=== PATIENT | female | born 1945 | race Caucasian/White ===

== ENCOUNTER → 2016-12-22 17:17 | Outpatient (CLI) | payer MEDICARE, MEDICAID ==
[2012-05-21 11:06] VITALS: BMI 35.1
== END | disposition home or self-care (01) ==
LOC: D.MAMMO 10:15
DX: Z12.31 Encounter for screening mammogram for malignant neoplasm of breast (principal)

== ENCOUNTER 2016-12-26 14:11 | Emergency (ER) | payer MEDICARE, MEDICAID ==
[2012-05-21 11:06] VITALS: BMI 35.1
== END 2016-12-26 19:22 | disposition home or self-care (01) ==
LOC: D.ER 14:11
DX: S00.83XA Contusion of other part of head, initial encounter (principal); S60.212A Contusion of left wrist, initial encounter; S60.222A Contusion of left hand, initial encounter; V43.52XA Car driver injured in collision with other type car in traffic accident, initial encounter; Y93.89 Activity, other specified; Y92.410 Unspecified street and highway as the place of occurrence of the external cause; F17.200 Nicotine dependence, unspecified, uncomplicated

== ENCOUNTER → 2017-06-08 12:59 | Outpatient (CLI) | payer MEDICARE, MEDICAID ==
[2012-05-21 11:06] VITALS: BMI 35.1
== END | disposition home or self-care (01) ==
LOC: D.US 12:59
DX: R60.0 Localized edema (principal)

== ENCOUNTER 2017-09-03 11:47 | Emergency (ER) | payer MEDICARE, MEDICAID ==
[2012-05-21 11:06] VITALS: BMI 35.1
[2017-09-03 12:24] LABS: BASOPHILS 0.2 % (0-2); EOSINOPHILS 1.3 % (0-7); HEMATOCRIT 41.3 % (36.0-48.0); HEMOGLOBIN 13.6 g/dL (12-16); IMMATURE GRANULOCYTES 0.2 % (0-5); LYMPHOCYTES 11.1 % (15-50); MCH 31.4 pg (26.0-34.0); MCHC 32.9 g/dL (31.0-37.0); MCV 95.4 fL (80.0-100.0); MEAN PLATELET VOLUME 9.7 fL (7.4-10.4); NEUTROPHILS 77.2 % (40-80); PLATELET COUNT 134 10x3/uL (130-400); RBC 4.33 10x6/uL (4.00-5.40); WBC 4.5 10x3/uL (4.8-10.8)
[2017-09-03 12:41] LABS: APTT 29.1 SECONDS (22.8-39.4); INR 1.06 (0.85-1.17); PROTIME 13.6 SECONDS (11.6-15.0)
== END 2017-09-03 16:17 | disposition home or self-care (01) ==
LOC: D.ER 11:47
PROVIDERS: Emergency Medicine
DX: J18.9 Pneumonia, unspecified organism (principal); J44.9 Chronic obstructive pulmonary disease, unspecified; F17.200 Nicotine dependence, unspecified, uncomplicated

== ENCOUNTER 2017-09-25 16:03 | Emergency (ER) | payer MEDICARE, MEDICAID ==
[2012-05-21 11:06] VITALS: BMI 35.1
[2017-12-13 14:54] VITALS: BMI 33.6
== END 2017-09-25 17:08 | disposition home or self-care (01) ==
LOC: D.ER 16:03
DX: M54.2 Cervicalgia (principal); M25.512 Pain in left shoulder; M62.838 Other muscle spasm; J44.9 Chronic obstructive pulmonary disease, unspecified; F17.200 Nicotine dependence, unspecified, uncomplicated

== ENCOUNTER 2017-11-06 14:46 | Emergency (ER) | payer MEDICARE, MEDICAID ==
[2012-05-21 11:06] VITALS: BMI 35.1
[2017-11-06 15:38] LABS: BASOPHILS 0.1 % (0-2); EOSINOPHILS 0.3 % (0-7); IMMATURE GRANULOCYTES 0.3 % (0-5); LYMPHOCYTES 10.6 % (15-50); MCH 32.9 pg (26.0-34.0); MCHC 34.1 g/dL (31.0-37.0); MCV 96.5 fL (80.0-100.0); MEAN PLATELET VOLUME 9.5 fL (7.4-10.4); MONOCYTES 7.3 % (2-11); NEUTROPHILS 81.4 % (40-80); PLATELET COUNT 136 10x3/uL (130-400); RBC 4.56 10x6/uL (4.00-5.40); RDW 14.3 % (11.5-14.5); WBC 7.1 10x3/uL (4.8-10.8)
[2017-11-06 15:49] LABS: INR 1.05 (0.85-1.17); PROTIME 13.3 SECONDS (11.6-15.0)
[2017-11-06 15:57] LABS: ALBUMIN 4.1 g/dL (3.4-5.0); ALKALINE PHOSPHATASE 108 U/L (46-116); ALT (SGPT) 22 U/L (10-68); BILIRUBIN - TOTAL 0.85 mg/dL (0.2-1.3); CALC OSMOLALITY 267 mosm/kg (275-300); CALCIUM 9.6 mg/dL (8.5-10.1); CARBON DIOXIDE 26.7 mmol/L (21.0-32.0); CHLORIDE - SERUM 96 mmol/L (98-107); GLUCOSE 138 mg/dL (74-106); POTASSIUM - SERUM 3.9 mmol/L (3.5-5.1); PROTEIN - SERUM 7.3 g/dL (6.4-8.2); SODIUM 133 mmol/L (136-145); UREA NITROGEN 13 mg/dL (7-18); eGFR NON AFRICAN AMERICAN 58 mL/min (90-120)
[2017-11-06 16:01] LABS: CREATINE KINASE 135 UL (21-215); MAGNESIUM - SERUM 1.4 mg/dL (1.8-2.4)
[2017-11-06 16:06] LABS: TROPONIN-I < 0.017 ng/mL (0.000-0.060)
[2017-11-06 16:29] LABS: APPEARANCE CLEAR (CLEAR); BILIRUBIN NEGATIVE (NEGATIVE); COLOR YELLOW (YELLOW); GLUCOSE NEGATIVE (NEGATIVE); KETONE LARGE mg/dL (NEGATIVE); NITRITE NEGATIVE (NEGATIVE); PROTEIN 1+ mg/dL (NEGATIVE); UROBILINOGEN NORMAL (NORMAL)
[2017-11-06 16:30] LABS: BACTERIA MODERATE /hpf (NONE SEEN); EPITHELIAL CELLS 0-5 /hpf (0-5); RED CELLS - URINE 0-5 /hpf (0-5); UDS - AMPHET NEGATIVE QUAL (NEGATIVE); UDS - BARB NEGATIVE QUAL (NEGATIVE); UDS - BENZO NEGATIVE QUAL (NEGATIVE); UDS - COCAINE NEGATIVE QUAL (NEGATIVE); UDS - OPIATE POSITIVE QUAL (NEGATIVE); UDS - PCP NEGATIVE QUAL (NEGATIVE); UDS - THC NEGATIVE QUAL (NEGATIVE); WHITE CELLS - URINE 0-5 /hpf (0-5)
== END 2017-11-06 19:40 | disposition short-term general hospital (02) ==
LOC: D.ER 14:46
PROVIDERS: Emergency Medicine; Nurse Practitioner Family
DX: R53.1 Weakness (principal); J44.9 Chronic obstructive pulmonary disease, unspecified; I10 Essential (primary) hypertension; K21.9 Gastro-esophageal reflux disease without esophagitis

== ENCOUNTER 2017-11-16 08:36 | Inpatient (IN) | payer MEDICARE, MEDICAID ==
[~2017-11-16] VITALS: Ht 160 cm; Wt 92.5 kg
[2017-11-16 09:13] LABS: BASOPHILS 0.2 % (0-2); EOSINOPHILS 0.2 % (0-7); HEMOGLOBIN 14.1 g/dL (12-16); IMMATURE GRANULOCYTES 0.3 % (0-5); LYMPHOCYTES 7.6 % (15-50); MCH 33.3 pg (26.0-34.0); MCHC 33.6 g/dL (31.0-37.0); MCV 99.1 fL (80.0-100.0); MEAN PLATELET VOLUME 9.7 fL (7.4-10.4); MONOCYTES 12.5 % (2-11); NEUTROPHILS 79.2 % (40-80); RBC 4.24 10x6/uL (4.00-5.40); RDW 14.5 % (11.5-14.5); WBC 9.2 10x3/uL (4.8-10.8)
[2017-11-16 09:25] LABS: PLATELET COUNT 167 10x3/uL (130-400)
[2017-11-16 09:28] LABS: ALBUMIN 3.6 g/dL (3.4-5.0); ANION GAP 15.6 mmol/L (8-16); BILIRUBIN - TOTAL 0.7 mg/dL (0.2-1.3); CALCIUM 9.3 mg/dL (8.5-10.1); CREATININE - SERUM 1.5 mg/dL (0.6-1.3); POTASSIUM - SERUM 4.6 mmol/L (3.5-5.1); PROTEIN - SERUM 7.4 g/dL (6.4-8.2)
[2017-11-16 10:12] LABS: APPEARANCE CLEAR (CLEAR); BILIRUBIN NEGATIVE (NEGATIVE); COLOR YELLOW (YELLOW); GLUCOSE NEGATIVE (NEGATIVE); HYALINE CAST OCC /lpf (NONE SEEN); KETONE NEGATIVE (NEGATIVE); MUCUS <1+ /lpf (NONE SEEN); NITRITE NEGATIVE (NEGATIVE); PROTEIN TRACE mg/dL (NEGATIVE); SPECIFIC GRAVITY 1.015 (1.005-1.020); UROBILINOGEN NORMAL (NORMAL)
[2017-11-16 10:14] LABS: BACTERIA FEW /hpf (NONE SEEN); EPITHELIAL CELLS OCC /hpf (0-5); RED CELLS - URINE RARE /hpf (0-5)
[2017-11-16 15:07] VITALS: BP 116/50; BMI 36.2
[2017-11-16] MEDS ORDERED: BREO ELLIPTA 21 EACH (15:35)
[2017-11-16] MEDS ORDERED: INCRUSE ELLI62.5 MCG INH (15:36)
[2017-11-16] MEDS ORDERED: KEPPRA750 MG PO (15:37)
[2017-11-16] MEDS ORDERED: PROAIR HFA8.5 GM INH (15:37)
[2017-11-16] MEDS ORDERED: NEURONTIN800 MG PO (15:38)
[2017-11-16] MEDS ORDERED: POTASSIUM99 M1 PO (15:39)
[2017-11-16] MEDS ORDERED: ELAVIL25 MG PO (15:41)
[2017-11-16] MEDS ORDERED: BUPROPION XL150 MG PO (15:41)
[2017-11-16] MEDS ORDERED: PYRIDOXINE HCL100 MG PO (15:42)
[2017-11-16] MEDS ORDERED: PRAVASTATIN SOD10 MG PO (15:43)
[2017-11-16] MEDS ORDERED: FUROSEMIDE40 MG PO (15:44)
[2017-11-16] MEDS ORDERED: ROBAXIN500 MG PO (15:44)
[2017-11-16] MEDS ORDERED: MAG-OX 400 MG400 MG PO (15:45)
[2017-11-16] MEDS ORDERED: VOLTAREN75 MG PO (15:45)
[2017-11-16] MEDS ORDERED: SYNTHROID25 MCG PO (15:46)
[2017-11-16] MEDS ORDERED: REQUIP5 MG PO (15:46)
[2017-11-16] MEDS ORDERED: CELEXA40 MG PO (15:46)
[2017-11-16] MEDS ORDERED: VITAMIN D31000 UNIT PO (15:47)
[2017-11-16] MEDS ORDERED: ZANAFLEX4 MG PO (15:47)
[2017-11-16] MEDS ORDERED: HYDROCHLOROTHIA25 MG PO (15:48)
[2017-11-16] MEDS ORDERED: OMEPRAZOLE20 M1 PO (15:48)
[2017-11-16 20:00] VITALS: BP 112/64
[2017-11-17] VITALS: BP 133/59
[2017-11-17 04:00] VITALS: BP 126/55
[2017-11-17 08:49] VITALS: BP 94/40
[2017-11-17 12:36] VITALS: BP 144/48
[2017-11-17 13:40] VITALS: Ht 160 cm; Wt 92.5 kg
[2017-11-17] MEDS ORDERED: FLAGYL500 MG PO (16:07)
[2017-11-17 16:36] VITALS: BP 139/59
[2017-11-20 03:09] LABS: OVA + PARASITE EXAM Final report (())
== END 2017-11-17 19:32 | disposition home or self-care (01) | DRG 872 ==
LOC: D.ER 08:36 → D.MS 12:53
PROVIDERS: Emergency Medicine
DX: A41.9 Sepsis, unspecified organism (principal); A04.72 Enterocolitis due to Clostridium difficile, not specified as recurrent; N17.9 Acute kidney failure, unspecified; I10 Essential (primary) hypertension; E86.0 Dehydration; J44.9 Chronic obstructive pulmonary disease, unspecified; Z72.0 Tobacco use

== ENCOUNTER 2017-12-12 18:40 | Inpatient (IN) | payer MEDICARE, MEDICAID ==
[~2017-12-12] VITALS: Ht 160 cm; Wt 86.2 kg
--- NOTE | ~2017-12-12 | EC ---
PATIENT:ABHINAV MONSIVAIS DATE OF SERVICE: 12/12/17 SEX: F MEDICAL RECORD: [id number] DATE OF : [birth year] LOCATION:[facility] AGE OF PATIENT: 72 ADMISSION DATE: 12/12/17 REFERRING PHYSICIAN: INTERPRETING PHYSICIAN: VANESSA LARA MD ECHOCARDIOGRAM REPORT ECHO CHARGES 4 ECHO COMPLETE CLINICAL DIAGNOSIS: CHF ECHOCARDIOGRAPHIC MEASUREMENTS (adult normal given) AC root (d.<3.7cm) 3.0 cm LV Septum d (<1.2 cm> 1.5 cm Valve Excursion 1.4 cm LV Septum (systole) 1.9 cm Left Atria (s.<4.0cm> 3.6 cm LVPW d(<1.2cm) 1.5 cm RV (d.<2.3cm) 3.9 cm LVPW (sytole) 1.9 cm LV diastole(<5.6CM) 4.6 cm MV E-F(>70mm/sec) cm LV systole 3.4 cm LVOT Diameter 1.7 cm MV exc.(>10mm) 1.5 cm Est.ejection fraction (50-75%) % Pericardial Effusion N DOPPLER: LVIT cm/sec A 118 cm/sec E 98.0 cm/sec LA cm/sec RVSP 26 mmHg LVOT 109 cm/sec AOP1/2T m/s Asc. Ao 154 cm/sec RVOT 101 cm/sec RA cm/sec PA 138 cm/sec AV Gradient Peak 9.52 mmHg AV Mean 4.76 mmHg AV Area 1.7 cm MV Gradient Peak 6.02 mmHg MV Mean 2.15 mmHg MV Area cm COMMENTS: Field Appraiser: Chapin TRAORE Advertising Project Manager: 2 Dr. Ashley TAPE# PACS DATE OF SERVICE: 12/13/2017 FINDINGS: 1. Left ventricular chamber size is within normal limits. Left ventricular systolic function is normal. Overall ejection fraction estimated at 65%. 2. Left atrium is within normal limits at 3.6 cm. Right atrium and right ventricle chamber sizes are mildly dilated. 3. Valvular structures have normal structure and motion. 4. Doppler interrogation reveals trace mitral regurgitation. No other valvular insufficiency or stenosis. ECHOCARDIOGRAM REPORT [id number] ABHINAV MONISVAIS 5. No evidence of pericardial effusion or left ventricular thrombus. TRANSINT:[id number] Voice Confirmation ID: [id number] DOCUMENT ID: [id number] VANESSA LARA MD CC: [id number] DICTATION DATE: 12/14/17923 OPTIMIZATION CONSULTANT: 12/14/17 1110 ADM IN [place] [id number] [place] [id number]
[~2017-12-12 18:40] MED LIST: BREO ELLIPTA 21 EACH; BUPROPION XL150 MG PO; CELEXA40 MG PO; ELAVIL25 MG PO; FLAGYL500 MG PO; FUROSEMIDE40 MG PO; HYDROCHLOROTHIA25 MG PO; INCRUSE ELLI62.5 MCG INH; KEPPRA750 MG PO; MAG-OX 400 MG400 MG PO; NEURONTIN800 MG PO; OMEPRAZOLE20 M1 PO; POTASSIUM99 M1 PO; PRAVASTATIN SOD10 MG PO; PROAIR HFA8.5 GM INH; PYRIDOXINE HCL100 MG PO; REQUIP5 MG PO; ROBAXIN500 MG PO; SYNTHROID25 MCG PO; VITAMIN D31000 UNIT PO; VOLTAREN75 MG PO; ZANAFLEX4 MG PO
[2017-12-12 20:45] LABS: BASOPHILS 0.2 % (0-2); EOSINOPHILS 1.3 % (0-7); HEMATOCRIT 37.1 % (36.0-48.0); IMMATURE GRANULOCYTES 0.4 % (0-5); LYMPHOCYTES 9.9 % (15-50); MCH 32.6 pg (26.0-34.0); MCHC 32.3 g/dL (31.0-37.0); MCV 100.8 fL (80.0-100.0); MEAN PLATELET VOLUME 10.4 fL (7.4-10.4); MONOCYTES 5.5 % (2-11); NEUTROPHILS 82.7 % (40-80); PLATELET COUNT 166 10x3/uL (130-400); RBC 3.68 10x6/uL (4.00-5.40); RDW 14.6 % (11.5-14.5); WBC 11.9 10x3/uL (4.8-10.8)
[2017-12-12 21:03] LABS: ANION GAP 10.2 mmol/L (8-16); BILIRUBIN - TOTAL 0.86 mg/dL (0.2-1.3); CALCIUM 8.4 mg/dL (8.5-10.1); CARBON DIOXIDE 32.7 mmol/L (21.0-32.0); CREATININE - SERUM 1.4 mg/dL (0.6-1.3); POTASSIUM - SERUM 4.9 mmol/L (3.5-5.1); PROTEIN - SERUM 6.3 g/dL (6.4-8.2)
[2017-12-13 00:32] LABS: APPEARANCE CLEAR (CLEAR); COLOR YELLOW (YELLOW)
[2017-12-13 00:33] LABS: BILIRUBIN NEGATIVE (NEGATIVE); EPITHELIAL CELLS 0-5 /hpf (0-5); GLUCOSE NEGATIVE (NEGATIVE); KETONE NEGATIVE (NEGATIVE); NITRITE NEGATIVE (NEGATIVE); PROTEIN NEGATIVE (NEGATIVE); RED CELLS - URINE NONE SEEN /hpf (0-5); UROBILINOGEN NORMAL (NORMAL); WHITE CELLS - URINE 0-5 /hpf (0-5)
[2017-12-13 00:34] LABS: BACTERIA FEW /hpf (NONE SEEN); YEAST <1+ /hpf (NONE SEEN)
[2017-12-13 03:27] VITALS: BP 119/42; BMI 33.7
[2017-12-13 05:16] LABS: BASOPHILS 0.1 % (0-2); EOSINOPHILS 0.1 % (0-7); HEMATOCRIT 36.6 % (36.0-48.0); HEMOGLOBIN 11.5 g/dL (12-16); IMMATURE GRANULOCYTES 0.4 % (0-5); LYMPHOCYTES 5.7 % (15-50); MCH 31.5 pg (26.0-34.0); MCHC 31.4 g/dL (31.0-37.0); MCV 100.3 fL (80.0-100.0); MEAN PLATELET VOLUME 9.8 fL (7.4-10.4); MONOCYTES 0.7 % (2-11); RBC 3.65 10x6/uL (4.00-5.40); RDW 14.6 % (11.5-14.5)
[2017-12-13 05:20] LABS: PLATELET COUNT 124 10x3/uL (130-400); WBC 8.1 10x3/uL (4.8-10.8)
[2017-12-13 05:32] LABS: CALCIUM 8.1 mg/dL (8.5-10.1); CARBON DIOXIDE 32.7 mmol/L (21.0-32.0); CREATININE - SERUM 1.2 mg/dL (0.6-1.3); POTASSIUM - SERUM 4.7 mmol/L (3.5-5.1)
[2017-12-13 07:59] VITALS: BP 156/66
[2017-12-13 12:31] VITALS: BP 158/63
[2017-12-13 14:54] VITALS: Ht 160 cm; Wt 86.2 kg
[2017-12-13 16:19] VITALS: BP 159/75
[2017-12-13 19:13] LABS: % SATURATION 6 % (15-55); IRON 17 ug/dl (35-150); TOTAL IRON BIND CAPACITY 255 ug/dl (260-445); UNSAT IRON BIND CAPACITY 238 ug/dl (150-375)
[2017-12-13 21:39] VITALS: BP 146/114
[2017-12-13 22:00] VITALS: BP 158/69
[2017-12-14 00:15] VITALS: BP 158/69
[2017-12-14 04:00] VITALS: BP 132/81
[2017-12-14 06:03] LABS: BASOPHILS 0 % (0-2); EOSINOPHILS 0 % (0-7); HEMOGLOBIN 11.3 g/dL (12-16); IMMATURE GRANULOCYTES 0.1 % (0-5); LYMPHOCYTES 10.6 % (15-50); MCHC 32.3 g/dL (31.0-37.0); MCV 99.2 fL (80.0-100.0); MEAN PLATELET VOLUME 9.9 fL (7.4-10.4); NEUTROPHILS 85.3 % (40-80); PLATELET COUNT 145 10x3/uL (130-400); RBC 3.53 10x6/uL (4.00-5.40); RDW 14.2 % (11.5-14.5); WBC 7.2 10x3/uL (4.8-10.8)
[2017-12-14 06:09] LABS: ANION GAP 9.6 mmol/L (8-16); CALCIUM 8.8 mg/dL (8.5-10.1); CARBON DIOXIDE 34.8 mmol/L (21.0-32.0)
[2017-12-14 06:10] LABS: POTASSIUM - SERUM 3.4 mmol/L (3.5-5.1)
[2017-12-14 06:15] LABS: HEMOGLOBIN A1C 5.3 % (4.8-6.0)
[2017-12-14 08:54] VITALS: BP 159/62
[2017-12-14 11:42] VITALS: BP 127/40
[2017-12-14 16:30] VITALS: BP 138/60
[2017-12-14 23:18] VITALS: BP 144/68
[2017-12-15] VITALS (7 sets, daily range): BP systolic 120–155; BP diastolic 51–67
[2017-12-15 08:16] LABS: FOLATE (FOLIC ACID) - SERUM 6.5 ng/mL (>3.0)
[2017-12-16 01:15] VITALS: BP 134/63
[2017-12-16 05:05] VITALS: BP 145/56
[2017-12-16 05:30] LABS: BASOPHILS 0.2 % (0-2); EOSINOPHILS 2.3 % (0-7); HEMATOCRIT 36.4 % (36.0-48.0); HEMOGLOBIN 11.8 g/dL (12-16); IMMATURE GRANULOCYTES 0.2 % (0-5); LYMPHOCYTES 25.4 % (15-50); MCH 32.2 pg (26.0-34.0); MCHC 32.4 g/dL (31.0-37.0); MCV 99.5 fL (80.0-100.0); MEAN PLATELET VOLUME 9.6 fL (7.4-10.4); MONOCYTES 7.5 % (2-11); NEUTROPHILS 64.4 % (40-80); PLATELET COUNT 142 10x3/uL (130-400); RBC 3.66 10x6/uL (4.00-5.40); RDW 14.3 % (11.5-14.5)
[2017-12-16 05:40] LABS: WBC 5.3 10x3/uL (4.8-10.8)
[2017-12-16 05:53] LABS: ANION GAP 12.5 mmol/L (8-16); CALCIUM 8.2 mg/dL (8.5-10.1); CARBON DIOXIDE 30.5 mmol/L (21.0-32.0); CREATININE - SERUM 1.1 mg/dL (0.6-1.3)
[2017-12-16 07:57] VITALS: BP 150/56
[2017-12-16 16:17] VITALS: BP 133/85
[2017-12-16 22:26] VITALS: BP 134/54
[2017-12-17 01:39] VITALS: BP 148/61
[2017-12-17 05:30] VITALS: BP 131/56
[2017-12-17 08:37] VITALS: BP 154/53
[2017-12-17 11:47] VITALS: BP 129/45
[2017-12-17 12:47] LABS: BASOPHILS 0.1 % (0-2); HEMATOCRIT 39.3 % (36.0-48.0); HEMOGLOBIN 12.6 g/dL (12-16); IMMATURE GRANULOCYTES 0.1 % (0-5); LYMPHOCYTES 17.3 % (15-50); MCHC 32.1 g/dL (31.0-37.0); MCV 99.7 fL (80.0-100.0); MEAN PLATELET VOLUME 9.3 fL (7.4-10.4); MONOCYTES 8.3 % (2-11); NEUTROPHILS 71.2 % (40-80); PLATELET COUNT 161 10x3/uL (130-400); RBC 3.94 10x6/uL (4.00-5.40); RDW 14.2 % (11.5-14.5)
[2017-12-17 12:49] LABS: WBC 8.5 10x3/uL (4.8-10.8)
[2017-12-17 13:03] LABS: ANION GAP 7.7 mmol/L (8-16); BILIRUBIN - TOTAL 0.4 mg/dL (0.2-1.3); CALCIUM 8.3 mg/dL (8.5-10.1); CARBON DIOXIDE 32.8 mmol/L (21.0-32.0); PROTEIN - SERUM 6.1 g/dL (6.4-8.2)
[2017-12-17 13:13] LABS: POTASSIUM - SERUM 3.5 mmol/L (3.5-5.1)
[2017-12-17] MEDS ORDERED: NICODERM C1 PATCH .1 TRANSDERM (13:33)
[2017-12-17] MEDS ORDERED: FLORAJEN3 CAPS460 MG PO (13:34)
[2017-12-17] MEDS ORDERED: ZITHROMAX250 MG PO (13:35)
[2017-12-17] MEDS ORDERED: FLAGYL500 MG PO (13:35)
== END 2017-12-17 15:03 | disposition home health service (06) | DRG 190 ==
LOC: D.ER 18:40 → D.MS 23:21
PROVIDERS: Family Medicine; Internal Medicine Nephrology; Physician Assistant
DX: J44.0 Chronic obstructive pulmonary disease with (acute) lower respiratory infection (principal); J18.1 Lobar pneumonia, unspecified organism; N17.9 Acute kidney failure, unspecified; F17.203 Nicotine dependence unspecified, with withdrawal; J44.1 Chronic obstructive pulmonary disease with (acute) exacerbation; D50.9 Iron deficiency anemia, unspecified; I10 Essential (primary) hypertension; E78.5 Hyperlipidemia, unspecified; K21.9 Gastro-esophageal reflux disease without esophagitis; M47.9 Spondylosis, unspecified; S33.6XXA Sprain of sacroiliac joint, initial encounter; W18.30XA Fall on same level, unspecified, initial encounter

== ENCOUNTER → 2018-01-02 17:46 | Outpatient (CLI) | payer MEDICARE, MEDICAID ==
[2017-12-13 14:54] VITALS: BMI 33.6
[~2018-01-02 17:46] MED LIST changes: +FLORAJEN3 CAPS460 MG PO; +NICODERM C1 PATCH .1 TRANSDERM; +ZITHROMAX250 MG PO
== END | disposition home or self-care (01) ==
LOC: D.MAMMO 14:15
DX: Z12.31 Encounter for screening mammogram for malignant neoplasm of breast (principal)

== ENCOUNTER → 2018-02-04 09:48 | Outpatient (CLI) | payer MEDICARE, MEDICAID ==
[2017-12-13 14:54] VITALS: BMI 33.6
== END | disposition home or self-care (01) ==
LOC: D.CT 09:48
DX: R91.1 Solitary pulmonary nodule (principal)

== ENCOUNTER 2018-04-05 15:16 | Emergency (ER) | payer MEDICARE, MEDICAID ==
[2017-12-13 14:54] VITALS: BMI 33.6
[2018-04-05 16:24] LABS: BASOPHILS 0 % (0-2); EOSINOPHILS 0.2 % (0-7); HEMATOCRIT 38.8 % (36.0-48.0); HEMOGLOBIN 12.7 g/dL (12-16); IMMATURE GRANULOCYTES 0.2 % (0-5); LYMPHOCYTES 22.9 % (15-50); MCH 31.4 pg (26.0-34.0); MCHC 32.7 g/dL (31.0-37.0); MCV 95.8 fL (80.0-100.0); MEAN PLATELET VOLUME 10.9 fL (7.4-10.4); MONOCYTES 8.7 % (2-11); PLATELET COUNT 153 10x3/uL (130-400); RBC 4.05 10x6/uL (4.00-5.40); RDW 13.6 % (11.5-14.5); WBC 5.9 10x3/uL (4.8-10.8)
[2018-04-05 16:42] LABS: ALBUMIN 3.4 g/dL (3.4-5.0); ALKALINE PHOSPHATASE 73 U/L (46-116); ALT (SGPT) 21 U/L (10-68); BILIRUBIN - TOTAL 0.31 mg/dL (0.2-1.3); CALC OSMOLALITY 289 mosm/kg (275-300); CALCIUM 8.2 mg/dL (8.5-10.1); CARBON DIOXIDE 33.3 mmol/L (21.0-32.0); CHLORIDE - SERUM 100 mmol/L (98-107); CREATININE - SERUM 1.7 mg/dL (0.6-1.3); GLUCOSE 139 mg/dL (74-106); POTASSIUM - SERUM 3.9 mmol/L (3.5-5.1); PROTEIN - SERUM 6.5 g/dL (6.4-8.2); SODIUM 139 mmol/L (136-145); UREA NITROGEN 41 mg/dL (7-18); eGFR NON AFRICAN AMERICAN 31 mL/min (90-120)
[2018-04-05 16:50] LABS: PRO BNP 963 pg/mL (0-125)
[2018-04-05 16:51] LABS: TROPONIN-I < 0.017 ng/mL (0.000-0.060)
[2018-04-05 16:53] LABS: APTT 27.9 SECONDS (22.8-39.4); INR 1.12 (0.85-1.17)
[2018-04-05 17:30] LABS: APPEARANCE CLEAR (CLEAR); BILIRUBIN NEGATIVE (NEGATIVE); COLOR YELLOW (YELLOW); GLUCOSE NEGATIVE (NEGATIVE); KETONE NEGATIVE (NEGATIVE); NITRITE NEGATIVE (NEGATIVE); PROTEIN NEGATIVE (NEGATIVE); UROBILINOGEN NORMAL (NORMAL)
== END 2018-04-05 18:35 | disposition home or self-care (01) ==
LOC: D.ER 15:16
PROVIDERS: Family Medicine
DX: S16.1XXA Strain of muscle, fascia and tendon at neck level, initial encounter (principal); W01.0XXA Fall on same level from slipping, tripping and stumbling without subsequent striking against object, initial encounter; Y93.89 Activity, other specified; Y92.019 Unspecified place in single-family (private) house as the place of occurrence of the external cause; F17.200 Nicotine dependence, unspecified, uncomplicated; I10 Essential (primary) hypertension

== ENCOUNTER → 2018-06-25 16:22 | Outpatient (CLI) | payer MEDICARE, MEDICAID ==
[2017-12-13 14:54] VITALS: BMI 33.6
[~2018-06-25 16:22] MED LIST changes: +HYDROCODONE-APA1 TAB PO; +KENALOG 0.1 % 115 GM TOPICAL; +TRELEGY AER ELL; +ZESTRIL10 MG PO
== END | disposition home or self-care (01) ==
LOC: D.MRI 16:22
DX: M54.2 Cervicalgia (principal)

== ENCOUNTER 2018-07-19 17:10 | Inpatient (IN) | payer MEDICARE, MEDICAID ==
[~2018-07-19] VITALS: Ht 160 cm; Wt 92.7 kg
[~2018-07-19 17:10] MED LIST changes: -HYDROCODONE-APA1 TAB PO; -KENALOG 0.1 % 115 GM TOPICAL; -TRELEGY AER ELL; -ZESTRIL10 MG PO
[2018-07-19 18:54] LABS: RBC 3.94 10x6/uL (4.00-5.40); WBC 6.8 10x3/uL (4.8-10.8)
[2018-07-19 18:55] LABS: BASOPHILS 0.1 % (0-2); EOSINOPHILS 1 % (0-7); IMMATURE GRANULOCYTES 0.3 % (0-5); LYMPHOCYTES 20.9 % (15-50); MCH 30.5 pg (26.0-34.0); MCHC 32.4 g/dL (31.0-37.0); MCV 93.9 fL (80.0-100.0); MEAN PLATELET VOLUME 9.9 fL (7.4-10.4); MONOCYTES 5.6 % (2-11); NEUTROPHILS 72.1 % (40-80); PLATELET COUNT 151 10x3/uL (130-400); RDW 14.7 % (11.5-14.5)
[2018-07-19 19:14] LABS: AMYLASE - SERUM 28 U/L (25-115); CALC OSMOLALITY 284 mosm/kg (275-300); CALCIUM 7.6 mg/dL (8.5-10.1); CARBON DIOXIDE 26.4 mmol/L (21.0-32.0); CHLORIDE - SERUM 97 mmol/L (98-107); CREATININE - SERUM 4.6 mg/dL (0.6-1.3); GLUCOSE 135 mg/dL (74-106); LIPASE 72 U/L (73-393); SODIUM 134 mmol/L (136-145); UREA NITROGEN 54 mg/dL (7-18); eGFR NON AFRICAN AMERICAN 10 mL/min (90-120)
[2018-07-19 19:15] LABS: ALBUMIN 3.1 g/dL (3.4-5.0); ALKALINE PHOSPHATASE 84 U/L (46-116); ALT (SGPT) 21 U/L (10-68); BILIRUBIN - TOTAL 0.54 mg/dL (0.2-1.3); PROTEIN - SERUM 6.2 g/dL (6.4-8.2)
[2018-07-19 19:17] VITALS: BP 106/44
[2018-07-19 19:59] LABS: APPEARANCE CLEAR (CLEAR); BILIRUBIN NEGATIVE (NEGATIVE); COLOR DK YELLOW (YELLOW); GLUCOSE NEGATIVE (NEGATIVE); KETONE NEGATIVE (NEGATIVE); NITRITE NEGATIVE (NEGATIVE); PROTEIN NEGATIVE (NEGATIVE); SPECIFIC GRAVITY 1.025 (1.005-1.020); UROBILINOGEN NORMAL (NORMAL)
[2018-07-19 20:00] VITALS: BP 106/43
[2018-07-19 20:00] LABS: RED CELLS - URINE 0-5 /hpf (0-5); WHITE CELLS - URINE 0-5 /hpf (0-5)
[2018-07-19 20:01] LABS: BACTERIA MANY /hpf (NONE SEEN)
[2018-07-19] MEDS ORDERED: ZESTRIL10 MG PO (21:36)
[2018-07-19] MEDS ORDERED: TRELEGY AER ELL (21:40)
[2018-07-19] MEDS ORDERED: KENALOG 0.1 % 115 GM TOPICAL (21:45)
[2018-07-20 01:41] VITALS: BP 106/43; BMI 36.2
[2018-07-20 04:00] VITALS: BP 82/42
[2018-07-20 05:17] LABS: BASOPHILS 0.2 % (0-2); EOSINOPHILS 2.2 % (0-7); HEMATOCRIT 36.4 % (36.0-48.0); HEMOGLOBIN 11.6 g/dL (12-16); IMMATURE GRANULOCYTES 0.2 % (0-5); LYMPHOCYTES 31.2 % (15-50); MCH 30.3 pg (26.0-34.0); MCHC 31.9 g/dL (31.0-37.0); MEAN PLATELET VOLUME 9.7 fL (7.4-10.4); NEUTROPHILS 56.2 % (40-80); PLATELET COUNT 139 10x3/uL (130-400); RBC 3.83 10x6/uL (4.00-5.40); RDW 14.7 % (11.5-14.5); WBC 5.1 10x3/uL (4.8-10.8)
[2018-07-20 05:35] LABS: ANION GAP 11.2 mmol/L (8-16); CALCIUM 7.3 mg/dL (8.5-10.1); CARBON DIOXIDE 28.1 mmol/L (21.0-32.0); CREATININE - SERUM 3.7 mg/dL (0.6-1.3); POTASSIUM - SERUM 4.3 mmol/L (3.5-5.1)
[2018-07-20 08:20] VITALS: BP 99/37
[2018-07-20] MEDS ORDERED: HYDROCODONE-APA1 TAB PO (09:49)
[2018-07-20 10:33] LABS: ALBUMIN 2.7 g/dL (3.4-5.0); BILIRUBIN - DIRECT 0.12 mg/dL (0.00-0.30); BILIRUBIN - INDIRECT 0.31 mg/dL (0.00-1.00); BILIRUBIN - TOTAL 0.43 mg/dL (0.2-1.3); PROTEIN - SERUM 5.5 g/dL (6.4-8.2)
[2018-07-20 11:05] VITALS: Ht 160 cm; Wt 92.7 kg
[2018-07-20 12:09] VITALS: BP 88/42
[2018-07-20 15:56] VITALS: BP 101/68
[2018-07-20 20:26] VITALS: BP 90/40
[2018-07-21 00:58] VITALS: BP 100/40
[2018-07-21 06:38] LABS: BASOPHILS 0.3 % (0-2); EOSINOPHILS 4.3 % (0-7); HEMATOCRIT 34.7 % (36.0-48.0); HEMOGLOBIN 11.1 g/dL (12-16); IMMATURE GRANULOCYTES 0.3 % (0-5); LYMPHOCYTES 36.6 % (15-50); MCH 30.4 pg (26.0-34.0); MCV 95.1 fL (80.0-100.0); MEAN PLATELET VOLUME 10.2 fL (7.4-10.4); MONOCYTES 9.5 % (2-11); PLATELET COUNT 153 10x3/uL (130-400); RBC 3.65 10x6/uL (4.00-5.40); RDW 14.7 % (11.5-14.5)
[2018-07-21 06:51] VITALS: BP 126/40
[2018-07-21 07:06] LABS: ALBUMIN 2.6 g/dL (3.4-5.0); ANION GAP 12.1 mmol/L (8-16); BILIRUBIN - TOTAL 0.39 mg/dL (0.2-1.3); CALCIUM 7.7 mg/dL (8.5-10.1); CARBON DIOXIDE 26.5 mmol/L (21.0-32.0); POTASSIUM - SERUM 4.6 mmol/L (3.5-5.1); PROTEIN - SERUM 5.5 g/dL (6.4-8.2)
[2018-07-21 07:10] LABS: CREATININE - SERUM 2.1 mg/dL (0.6-1.3)
[2018-07-21 09:20] VITALS: BP 118/48
[2018-07-21 12:33] VITALS: BP 123/36
[2018-07-21 17:32] VITALS: BP 130/36
[2018-07-21 21:59] VITALS: BP 98/37
[2018-07-22 05:54] LABS: BASOPHILS 0.3 % (0-2); EOSINOPHILS 3.8 % (0-7); HEMATOCRIT 33.8 % (36.0-48.0); HEMOGLOBIN 10.6 g/dL (12-16); IMMATURE GRANULOCYTES 0.3 % (0-5); LYMPHOCYTES 36.7 % (15-50); MCHC 31.4 g/dL (31.0-37.0); MCV 95.8 fL (80.0-100.0); MONOCYTES 10.1 % (2-11); NEUTROPHILS 48.8 % (40-80); PLATELET COUNT 155 10x3/uL (130-400); RBC 3.53 10x6/uL (4.00-5.40); RDW 14.7 % (11.5-14.5); WBC 3.4 10x3/uL (4.8-10.8)
[2018-07-22 06:37] LABS: ALBUMIN 2.4 g/dL (3.4-5.0); ANION GAP 10.4 mmol/L (8-16); BILIRUBIN - TOTAL 0.31 mg/dL (0.2-1.3); CALCIUM 7.8 mg/dL (8.5-10.1); CARBON DIOXIDE 29.1 mmol/L (21.0-32.0); POTASSIUM - SERUM 4.5 mmol/L (3.5-5.1); PROTEIN - SERUM 5.3 g/dL (6.4-8.2)
[2018-07-22 06:40] LABS: CREATININE - SERUM 1.1 mg/dL (0.6-1.3)
[2018-07-22 07:16] VITALS: BP 127/46
[2018-07-22 08:37] VITALS: BP 120/48
[2018-07-22 11:41] VITALS: BP 134/45
[2018-07-22 16:10] VITALS: BP 110/31
[2018-07-22 20:00] VITALS: BP 135/45
[2018-07-23 04:00] VITALS: BP 128/61
[2018-07-23 06:21] LABS: BASOPHILS 0.3 % (0-2); EOSINOPHILS 4.3 % (0-7); HEMATOCRIT 34.3 % (36.0-48.0); HEMOGLOBIN 10.8 g/dL (12-16); IMMATURE GRANULOCYTES 0.3 % (0-5); LYMPHOCYTES 36.6 % (15-50); MCH 30.6 pg (26.0-34.0); MCHC 31.5 g/dL (31.0-37.0); MCV 97.2 fL (80.0-100.0); MEAN PLATELET VOLUME 9.9 fL (7.4-10.4); MONOCYTES 10.9 % (2-11); NEUTROPHILS 47.6 % (40-80); PLATELET COUNT 147 10x3/uL (130-400); RBC 3.53 10x6/uL (4.00-5.40); RDW 14.6 % (11.5-14.5); WBC 3.5 10x3/uL (4.8-10.8)
[2018-07-23 06:59] LABS: ALBUMIN 2.5 g/dL (3.4-5.0); ALKALINE PHOSPHATASE 69 U/L (46-116); ALT (SGPT) 17 U/L (10-68); BILIRUBIN - TOTAL 0.27 mg/dL (0.2-1.3); CALCIUM 7.7 mg/dL (8.5-10.1); CARBON DIOXIDE 30.2 mmol/L (21.0-32.0); CHLORIDE - SERUM 109 mmol/L (98-107); GLUCOSE 83 mg/dL (74-106); POTASSIUM - SERUM 4.8 mmol/L (3.5-5.1); PROTEIN - SERUM 5.5 g/dL (6.4-8.2); SODIUM 142 mmol/L (136-145)
[2018-07-23 07:03] LABS: CALC OSMOLALITY 283 mosm/kg (275-300); CREATININE - SERUM 0.8 mg/dL (0.6-1.3); UREA NITROGEN 19 mg/dL (7-18); eGFR NON AFRICAN AMERICAN 75 mL/min (90-120)
[2018-07-23 07:41] VITALS: BP 134/50
[2018-07-23 11:06] VITALS: BP 128/49
[2018-07-23 15:52] VITALS: BP 121/47
== END 2018-07-23 17:05 | disposition home or self-care (01) | DRG 683 ==
LOC: D.ER 17:10 → D.M2 20:19
PROVIDERS: Emergency Medicine; Family Medicine
DX: N17.9 Acute kidney failure, unspecified (principal); F17.213 Nicotine dependence, cigarettes, with withdrawal; N14.1 Nephropathy induced by other drugs, medicaments and biological substances; T36.8X5A Adverse effect of other systemic antibiotics, initial encounter; I95.9 Hypotension, unspecified; J44.9 Chronic obstructive pulmonary disease, unspecified; K21.9 Gastro-esophageal reflux disease without esophagitis; I12.9 Hypertensive chronic kidney disease with stage 1 through stage 4 chronic kidney disease, or unspecified chronic kidney disease; N18.9 Chronic kidney disease, unspecified; E66.01 Morbid (severe) obesity due to excess calories; Z68.36 Body mass index [BMI] 36.0-36.9, adult; F32.9 Major depressive disorder, single episode, unspecified; F41.9 Anxiety disorder, unspecified; M79.3 Panniculitis, unspecified; Z86.73 Personal history of transient ischemic attack (TIA), and cerebral infarction without residual deficits; E86.9 Volume depletion, unspecified

== ENCOUNTER 2018-08-09 22:25 | Emergency (ER) | payer MEDICARE, MEDICAID ==
[~2018-08-09] VITALS: Ht 160 cm; Wt 96.4 kg
[~2018-08-09 22:25] MED LIST changes: +HYDROCODONE-APA1 TAB PO; +KENALOG 0.1 % 115 GM TOPICAL; +TRELEGY AER ELL; +ZESTRIL10 MG PO
[2018-08-09 22:33] VITALS: Ht 160 cm; Wt 96.4 kg
[2018-08-10] MEDS ORDERED: CLEOCIN HCL300 MG PO (00:14)
[2018-08-10 01:43] VITALS: BP 128/48
== END 2018-08-10 00:48 | disposition home or self-care (01) ==
LOC: D.ER 22:25
DX: S81.811A Laceration without foreign body, right lower leg, initial encounter (principal); W26.8XXA Contact with other sharp object(s), not elsewhere classified, initial encounter; Y93.89 Activity, other specified; Y92.019 Unspecified place in single-family (private) house as the place of occurrence of the external cause; Z86.73 Personal history of transient ischemic attack (TIA), and cerebral infarction without residual deficits; G40.909 Epilepsy, unspecified, not intractable, without status epilepticus; J44.9 Chronic obstructive pulmonary disease, unspecified; Z99.81 Dependence on supplemental oxygen; K21.9 Gastro-esophageal reflux disease without esophagitis; F17.200 Nicotine dependence, unspecified, uncomplicated

== ENCOUNTER 2018-10-27 18:23 | Emergency (ER) | payer MEDICARE, MEDICAID ==
[~2018-10-27] VITALS: Ht 160 cm; Wt 99.5 kg
[~2018-10-27 18:23] MED LIST changes: +CLEOCIN HCL300 MG PO
[2018-10-27 18:28] VITALS: Ht 160 cm; Wt 99.5 kg
[2018-10-27] MEDS ORDERED: VISTARIL25 MG PO (21:05)
[2018-10-27] MEDS ORDERED: BUTALB-APAP-CA1 EACH PO (21:06)
[2018-10-27 21:30] VITALS: BP 138/48
== END 2018-10-27 21:30 | disposition home or self-care (01) ==
LOC: D.ER 18:23
DX: T78.40XA Allergy, unspecified, initial encounter (principal); X58.XXXA Exposure to other specified factors, initial encounter; R51 Headache; J44.9 Chronic obstructive pulmonary disease, unspecified

== ENCOUNTER → 2018-11-29 15:49 | Outpatient (CLI) | payer MEDICARE, MEDICAID ==
[2018-10-27 18:28] VITALS: BMI 38.8
[~2018-11-29 15:49] MED LIST changes: +BUTALB-APAP-CA1 EACH PO; +VISTARIL25 MG PO
== END | disposition home or self-care (01) ==
LOC: D.US 14:30
DX: M79.605 Pain in left leg (principal)

== ENCOUNTER 2019-01-24 12:27 | Inpatient (IN) | payer MEDICARE, MEDICAID ==
[~2019-01-24] VITALS: Ht 160 cm; Wt 92.6 kg
[2019-01-24 13:29] LABS: BASOPHILS 0.2 % (0-2); EOSINOPHILS 1.5 % (0-7); HEMOGLOBIN 13.4 g/dL (12-16); LYMPHOCYTES 28.2 % (15-50); MCHC 31.9 g/dL (31.0-37.0); MCV 87.9 fL (80.0-100.0); MEAN PLATELET VOLUME 10.2 fL (7.4-10.4); MONOCYTES 8.8 % (2-11); NEUTROPHILS 61.3 % (40-80); PLATELET COUNT 158 10x3/uL (130-400); RBC 4.78 10x6/uL (4.00-5.40); RDW 15.9 % (11.5-14.5); WBC 5.4 10x3/uL (4.8-10.8)
[2019-01-24 13:33] LABS: ALBUMIN 3.2 g/dL (3.4-5.0); ALKALINE PHOSPHATASE 55 U/L (46-116); ALT (SGPT) 12 U/L (10-68); CALC OSMOLALITY 274 mosm/kg (275-300); CALCIUM 9.3 mg/dL (8.5-10.1); CARBON DIOXIDE 35.5 mmol/L (21.0-32.0); CHLORIDE - SERUM 95 mmol/L (98-107); CREATININE - SERUM 0.9 mg/dL (0.6-1.3); GLUCOSE 115 mg/dL (74-106); POTASSIUM - SERUM 3.6 mmol/L (3.5-5.1); PROTEIN - SERUM 6.6 g/dL (6.4-8.2); SODIUM 135 mmol/L (136-145); UREA NITROGEN 24 mg/dL (7-18); eGFR NON AFRICAN AMERICAN 65 mL/min (90-120)
[2019-01-24 13:36] LABS: APTT 28.1 SECONDS (22.8-39.4); INR 1.08 (0.85-1.17); PROTIME 13.5 SECONDS (11.6-15.0)
[2019-01-24 13:45] LABS: CKMB 1.3 U/L (0.0-3.6); CREATINE KINASE 28 UL (21-215); PRO BNP 487 pg/mL (0-125)
[2019-01-24 13:47] LABS: TROPONIN-I < 0.017 ng/mL (0.000-0.060)
--- NOTE | 2019-01-24 17:39 | MORECARE ---
CASE MANAGEMENT DISCHARGE SUMMARY PATIENT: ABHINAV LAWRENCE UNIT: [id number] ADM DATE: 01/24/19 AGE: 73 : [birth year] SEX: F ROOM/BED: D.2108 AUTHOR: RA WHITE PHYSICIAN: REFERRING PHYSICIAN: NELSON RAM MD DATE OF SERVICE: 01/24/19 Discharge Plan Patient Name: ABHINAV LAWRENCE [facility] : 1945 Planned Disposition: Home Anticipated Discharge Date: 01/27/19 Discharge Date: Expected LOS: 3 Initial Reviewer: [email or web address] Initial Review Date: 01/24/2019 Generated: 01/24/19 6:38 pm DCPIA - Discharge Planning Initial Assessment Updated by [id number]: Tiffany Escobar on 01/24/19 5:37 pm * Is the patient Alert and Oriented? Yes * How many steps to enter\exit or inside your home? Ramp * PCP Dr. Collins * Pharmacy [facility] * Preadmission Environment Home with Family * ADLs Partial Dependent * Partial ADLs (Assistance needed) Ambulation Medication Management * Equipment Cane Oxygen Rolling Walker Wheelchair * Other Equipment [employer] is O2 provider * List name and contact numbers for known caregivers / representatives who currently or will assist patient after discharge: Maddie Lawrence - spouse - [phone] * Verbal permission to speak to the caregivers and representatives has been obtained from the patient. Yes * Community resources currently utilized Home Health * Please name any agencies selected above. Spouse is not sure who the agency is * Additional services required to return to the preadmission environment? No * Can the patient safely return to the preadmission environment? Yes * Has this patient been hospitalized within the prior 30 days at any hospital? No Patient Name: ABHINAV LAWRENCE Page [id number] at 1739 All edits/amendments must be made on the electronic document DICTATION DATE: 01/24/191737 SOCIAL SECURITY ASSESSOR: JORDAN 01/24/191737 RPT#: [id number] DC DATE: STATUS: ADM IN [facility] [address] [place] [address] END OF REPORT
--- NOTE | 2019-01-24 17:47 | MORECARE ---
CASE MANAGEMENT DISCHARGE SUMMARY PATIENT: ABHINAV LAWRENCE UNIT: [id number] ADM DATE: 01/24/19 AGE: 73 : [birth year] SEX: F ROOM/BED: D.8761 AUTHOR: RA WHITE PHYSICIAN: REFERRING PHYSICIAN: NELSON RAM MD DATE OF SERVICE: 01/24/19 Discharge Plan Patient Name: ABHINAV LAWRENCE Facility: [facility]:[place] : 1945 Planned Disposition: Home Anticipated Discharge Date: 01/27/19 Discharge Date: Expected LOS: 3 Initial Reviewer: [email or web address] Initial Review Date: 01/24/2019 Generated: 01/24/19 6:47 pm DCP- Discharge Planning Updated by [id number]: Tiffany Escobar on 01/24/19 4:[address] Patient Name: ABHINAV LAWRENCE Admission Status: ER Accout number: [id number] Admission Date: 01-24-2019 : 1945 Admission Diagnosis: Attending: NELSON RAM Current LOS: 1 Anticipated DC Date: 01-27-2019 Planned Disposition: Home Primary Insurance: [facility] MEDICARE SOLUTIONS Discharge Planning Comments: CM met with patient and her to complete initial dc planning assessment. CM educated patient's on the CM role and verbal consent given by patient's to complete assessment. Patient disoriented at this time. This is a new confusion that has started off and on since she was sick an in the hospital in November. He reports the patient was A&O x 3 yesterday and this began last pm. Patient lives at home with her who cares for her when she gets sick but is normally able to take care of herself. At discharge he said she will return home with him and he feels this is a safe discharge plan. CM discussed availability of home health, rehab services, and medical equipment. He reports she has home health but he cant remember who the agency is at this time. He is unsure that the patient will need any additional services at discharge. CM will continue to follow and will assist as needed with dc plans/needs. Brain Picker: Tiffany Escobar RN, [facility] DCPIA - Discharge Planning Initial Assessment Updated by [email or web address]: Tiffany Escobar on 01/24/19 5:37 pm * Is the patient Alert and Oriented? Yes * How many steps to enter\exit or inside your home? Ramp * PCP Dr. Collins * Pharmacy [facility] * Preadmission Environment Home with Family * ADLs Partial Dependent * Partial ADLs (Assistance needed) Ambulation Medication Management * Equipment Cane Oxygen Rolling Walker Wheelchair * Other Equipment [employer] is O2 provider * List name and contact numbers for known caregivers / representatives who currently or will assist patient after discharge: Maddie Lawrence - spouse - [phone] * Verbal permission to speak to the caregivers and representatives has been obtained from the patient. Yes * Community resources currently utilized Home Health * Please name any agencies selected above. Spouse is not sure who the agency is * Additional services required to return to the preadmission environment? No * Can the patient safely return to the preadmission environment? Yes * Has this patient been hospitalized within the prior 30 days at any hospital? No Last DP export: 01/24/19 4:39 p Patient Name: ABHINAV LAWRENCE Page [id number] at 1747 All edits/amendments must be made on the electronic document DICTATION DATE: 01/24/191746 RISK MANAGEMENT DIRECTOR: JORDAN 01/24/191746 RPT#: [id number] DC DATE: STATUS: ADM IN [facility] [address] [place] [address] END OF REPORT
--- NOTE | 2019-01-24 17:53 | NUR ---
RECEIVED PT FROM ER. PT IS CURRENTLY RESTING. RR EVEN AND UNLABORED ON 2.5L O2. FAMILY AT BEDSIDE. PT CURRENTLY LYING SEMI FOWLERS. CALL LIGHT W/I REACH.NO S/S OF DISTRESS NOTED. NS INFUSING @125ML/HR VIA R.FOR PIV. PT DENIES ANY NEEDS AT THIS TIME. QUICKSTART, MED REQ, AND HISTORY COMPLETED. WILL CTM.
[2019-01-24 18:01] VITALS: BP 142/71; BMI 35.5
--- NOTE | 2019-01-24 18:12 | NUR ---
ASSESSMENT COMPLETE PT LETHARGIC RESPIRATIONS NOTED WITH APNEA O2 ON 2LPM STATES PT WAS USING TRILOGY BUT QUIT LETHARGIC SKIN W/D SALINE LOCK INTACT TO RFA WITH OCCLUSSIVE DRSG INTACT SITE FREE OF REDNESS OR EDEMA WILL CONTINUE TO MONITOR
[2019-01-24 20:00] VITALS: BP 168/70
--- NOTE | 2019-01-24 20:00 | NUR ---
RESUMING PT CARE. PT IS ALERT LAYING IN BED. FAMILY AT BEDSIDE. PT IS ON 2.5 LITERS OF O2. NO ACUTE S/S OF DISTRESS NOTED AT THIS TIME. BED IS IN LOW POSITION WITH CALL LIGHT IN REACH. WILL CONTINUE TO MONITOR PT AND FOLLOW PLAN OF CARE.
[2019-01-25] VITALS (7 sets, daily range): BP systolic 115–180; BP diastolic 50–84; Ht 160 cm; Wt 92.6 kg
--- NOTE | 2019-01-25 03:04 | NUR ---
IV infusing, patient in bed, respirations easy and regular, eyes closed, no signs of distress, deemed to be sleeping.
[2019-01-25 05:28] LABS: BASOPHILS 0 % (0-2); EOSINOPHILS 0 % (0-7); HEMATOCRIT 42.8 % (36.0-48.0); HEMOGLOBIN 13.8 g/dL (12-16); LYMPHOCYTES 25.2 % (15-50); MCHC 32.2 g/dL (31.0-37.0); MEAN PLATELET VOLUME 10.2 fL (7.4-10.4); MONOCYTES 1.5 % (2-11); NEUTROPHILS 73.3 % (40-80); RBC 4.92 10x6/uL (4.00-5.40); RDW 15.3 % (11.5-14.5)
[2019-01-25 05:37] LABS: PLATELET COUNT 123 10x3/uL (130-400)
[2019-01-25 05:39] LABS: WBC 3.2 10x3/uL (4.8-10.8)
[2019-01-25 05:47] LABS: ALBUMIN 3.1 g/dL (3.4-5.0); ALKALINE PHOSPHATASE 54 U/L (46-116); ALT (SGPT) 13 U/L (10-68); BILIRUBIN - TOTAL 0.52 mg/dL (0.2-1.3); CALCIUM 8.4 mg/dL (8.5-10.1); CARBON DIOXIDE 29.5 mmol/L (21.0-32.0); CHLORIDE - SERUM 99 mmol/L (98-107); CREATININE - SERUM 0.7 mg/dL (0.6-1.3); POTASSIUM - SERUM 3.8 mmol/L (3.5-5.1); PROTEIN - SERUM 6.7 g/dL (6.4-8.2); SODIUM 135 mmol/L (136-145); eGFR NON AFRICAN AMERICAN 87 mL/min (90-120)
[2019-01-25 06:00] LABS: CALC OSMOLALITY 274 mosm/kg (275-300); GLUCOSE 172 mg/dL (74-106); UREA NITROGEN 15 mg/dL (7-18)
--- NOTE | 2019-01-25 07:59 | NUR ---
ROUNDING DONE WITH PATIENT LAYING ON BACK, DENIES NEEDS AT THIS TIME. ON 2L PER NC. RIGHT FA PIV SEEN WITH NS INFUSING AT 125 CC/HR. IN REPORT, PATIENT HAS A HX OF CVA. CANE LAYING ON BED. INSTRUCTED TO USE CALL LIGHT FOR ALL NEEDS. STATES TO UNDERSTANDING.
--- NOTE | 2019-01-25 11:33 | NUR ---
DENIES NEEDS AT THIS TIME.
--- NOTE | 2019-01-25 12:53 | NUR ---
PATIENT TO COMPLAIN OF BEING COLD, FACE IS FLUSHED FROM STEROIDS. AFEBRILE. ENCOURAGED TO COUGH AND DEEP BREATH OFTEN TO HELP CLEAR LUNGS, WHICH ARE CLEAR WHILE LISTENING TO THEM.
--- NOTE | 2019-01-25 13:44 | NUR ---
ASSISTED PATIENT TO RESTROOM AND BACK WITH HER CANE. DENIES ANY FURTHER NEEDS. WANTS HER LUNCH TRAY STILL LEFT AT [facility].
--- NOTE | 2019-01-25 13:59 | NUR ---
LUNCH TRAY TAKEN OUT OF ROOM. PATIENT DID NOT WANT TO EAT.
--- NOTE | 2019-01-25 14:16 | NUR ---
PLACED ON HEART MONITOR SHOWING SR, HR 85. PATIENT IS INSTRUCTED TO NEEDING URINE SAMPLE. [place] [facility] PLACED IN [facility].
--- NOTE | 2019-01-25 15:36 | NUR ---
REFUSES TO WEAR SCD'S, DOES NOT WANT TO WEAR NON SKID SOCKS IN THE BED. DOES NOT LIKE THINGS ON HER LEGS.
--- NOTE | 2019-01-25 15:40 | NUR ---
URINE SENT TO LAB ORDERED.
[2019-01-25 15:55] LABS: APPEARANCE CLEAR (CLEAR); BILIRUBIN NEGATIVE (NEGATIVE); COLOR YELLOW (YELLOW); GLUCOSE 100 mg/dL (NEGATIVE); KETONE SMALL mg/dL (NEGATIVE); NITRITE NEGATIVE (NEGATIVE); PROTEIN 1+ mg/dL (NEGATIVE); SPECIFIC GRAVITY 1.015 (1.005-1.020); UROBILINOGEN NORMAL (NORMAL)
[2019-01-25 15:56] LABS: BACTERIA MODERATE /hpf (NONE SEEN); EPITHELIAL CELLS 0-5 /hpf (0-5); RED CELLS - URINE 0-5 /hpf (0-5); WHITE CELLS - URINE 0-5 /hpf (0-5)
[2019-01-25 15:57] LABS: YEAST RARE /hpf (NONE SEEN)
--- NOTE | 2019-01-25 16:23 | NUR ---
ASSSITED PATIENT TO RESTROOM FOR ANOTHER BM. BACK TO BED.
--- NOTE | 2019-01-25 19:45 | NUR ---
PT SITTING UP IN BED ALERT AND ORIENTED. PT COMPLAING OF PAIN IN FEET. NO S/S OF DISTRESS. AT BEDSIDE. BED LOW CALL LIGHT WITHIN REACH. WILL CONTINUE TO MONITOR.
--- NOTE | 2019-01-25 20:09 | NUR ---
PT ALERT AND ORIENTED SITTING UP IN BED. NS GOING @ 75ML/HR. AT BEDSIDE. PT DENIES ANY NEEDS OR PAIN AT THIS TIME. BED LOW CALL LIGHT WITHIN REACH. WILL CONTINUE TO MONITOR.
--- NOTE | 2019-01-26 04:12 | NUR ---
I have reviewed this patient and I concur with the Shift Assessment completed by the Licensed Practical Nurse today this shift.
[2019-01-26 04:30] VITALS: BP 139/52
[2019-01-26 09:22] VITALS: BP 116/74
[2019-01-26 13:41] VITALS: BP 130/40
[2019-01-26 17:32] VITALS: BP 100/43
[2019-01-26 20:00] VITALS: BP 114/44
[2019-01-27] VITALS: BP 106/34
--- NOTE | 2019-01-27 02:16 | NUR ---
I have reviewed this patient and I concur with the Shift Assessment completed by the Licensed Practical Nurse today this shift.
--- NOTE | 2019-01-27 02:26 | NUR ---
RESTING WITH EYES CLOSED, RESPERATIONS EVEN. NO S/S DISTRESS NOTED.
[2019-01-27 05:00] VITALS: BP 138/45
[2019-01-27 05:29] LABS: BASOPHILS 0 % (0-2); EOSINOPHILS 0 % (0-7); HEMATOCRIT 39.9 % (36.0-48.0); HEMOGLOBIN 12.8 g/dL (12-16); IMMATURE GRANULOCYTES 0.2 % (0-5); LYMPHOCYTES 10.4 % (15-50); MCH 27.9 pg (26.0-34.0); MCHC 32.1 g/dL (31.0-37.0); MCV 87.1 fL (80.0-100.0); MEAN PLATELET VOLUME 10.8 fL (7.4-10.4); MONOCYTES 1.5 % (2-11); NEUTROPHILS 87.9 % (40-80); PLATELET COUNT 121 10x3/uL (130-400); RBC 4.58 10x6/uL (4.00-5.40); RDW 16.4 % (11.5-14.5)
[2019-01-27 05:34] LABS: ANION GAP 7.3 mmol/L (8-16); CARBON DIOXIDE 36.8 mmol/L (21.0-32.0)
[2019-01-27 05:40] LABS: CREATININE - SERUM 1.1 mg/dL (0.6-1.3); POTASSIUM - SERUM 3.1 mmol/L (3.5-5.1)
--- NOTE | 2019-01-27 07:26 | NUR ---
REPORT RECEIVED. WILL CONTINUE WITH POC. PT CURRENTLY LYING SEMI FOWLERS. CALL LIGHT W/I REACH. PT IS RESTING AT THE MOMENT. RR EVEN AND UNLABORED ON 2L 02. NS INFUSING @75ML/HR VIA R.FOR PIV. PT DENIES ANY NEEDS AT THIS TIME. NO S/S OF DISTRESS NOTED. WILL CTM.
[2019-01-27 08:46] VITALS: BP 117/51
--- NOTE | 2019-01-27 10:41 | NUR ---
Nutrition follow-up: Diet: low sodium PO intake poor; ~50% of some meals, refusing some meals Labs reviewed Wt: 204# +BM Will continue to provide food choices and honor all food preferences. If po intake remains poor would suggest liberalizing diet to regular as tolerated to encourage increased po intake. RDN following.
[2019-01-27 12:00] VITALS: BP 143/65
[2019-01-27 16:11] VITALS: BP 131/35
[2019-01-27] MEDS ORDERED: PREDNISONE10 MG PO (17:39)
[2019-01-27] MEDS ORDERED: OMNICEF300 MG PO (17:39)
--- NOTE | 2019-01-27 18:04 | NUR ---
PT DISCHARGED HOME VIA WHEELCHAIR WITH FAMILY. PIV REMOVED WITH CATHETER TIP FULLY INTACT. TELEMETRY REMOVED AND RETURNED. PT SIGNED PROPER DISCHARGE INSTRUCTION AND REMOVED ALL VALUABLES FROM THE ROOM.
--- NOTE | 2019-01-29 07:46 | MORECARE ---
CASE MANAGEMENT DISCHARGE SUMMARY PATIENT: ABHINAV LAWRENCE UNIT: [id number] ADM DATE: 01/24/19 AGE: 73 : [birth year] SEX: F ROOM/BED: D.0677 AUTHOR: RA WHITE PHYSICIAN: REFERRING PHYSICIAN: NELSON RAM MD DATE OF SERVICE: 01/29/19 Discharge Plan Patient Name: ABHINAV LAWRENCE Facility: [facility]:[place] : 1945 Planned Disposition: Home Anticipated Discharge Date: 01/27/19 Discharge Date: 01/27/2019 Expected LOS: 3 Initial Reviewer: [email or web address] Initial Review Date: 01/24/2019 Generated: 01/29/19 8:46 am DCP- Discharge Planning Updated by [email or web address]: Tiffany Escobar on 01/24/19 4:[address] Patient Name: ABHINAV LAWRENCE Admission Status: ER Accout number: [id number] Admission Date: 01-24-2019 : 1945 Admission Diagnosis: Attending: NELSON RAM Current LOS: 1 Anticipated DC Date: 01-27-2019 Planned Disposition: Home Primary Insurance: [facility] MEDICARE SOLUTIONS Discharge Planning Comments: CM met with patient and her to complete initial dc planning assessment. CM educated patient's on the CM role and verbal consent given by patient's to complete assessment. Patient disoriented at this time. This is a new confusion that has started off and on since she was sick an in the hospital in November. He reports the patient was A&O x 3 yesterday and this began last pm. Patient lives at home with her who cares for her when she gets sick but is normally able to take care of herself. At discharge he said she will return home with him and he feels this is a safe discharge plan. CM discussed availability of home health, rehab services, and medical equipment. He reports she has home health but he cant remember who the agency is at this time. He is unsure that the patient will need any additional services at discharge. CM will continue to follow and will assist as needed with dc plans/needs. Agricultural Equipment Design Engineer: Tiffany Escobar RN, [facility] DCPIA - Discharge Planning Initial Assessment Updated by [id number]: Tiffany Escobar on 01/24/19 5:37 pm * Is the patient Alert and Oriented? Yes * How many steps to enter\exit or inside your home? Ramp * PCP Dr. Collins * Pharmacy [facility] * Preadmission Environment Home with Family * ADLs Partial Dependent * Partial ADLs (Assistance needed) Ambulation Medication Management * Equipment Cane Oxygen Rolling Walker Wheelchair * Other Equipment [employer] is O2 provider * List name and contact numbers for known caregivers / representatives who currently or will assist patient after discharge: Maddie Lawrence - spouse - [phone] * Verbal permission to speak to the caregivers and representatives has been obtained from the patient. Yes * Community resources currently utilized Home Health * Please name any agencies selected above. Spouse is not sure who the agency is * Additional services required to return to the preadmission environment? No * Can the patient safely return to the preadmission environment? Yes * Has this patient been hospitalized within the prior 30 days at any hospital? No Last DP export: 01/24/19 4:47 p Patient Name: ABHINAV LAWRENCE Page 44115 at 0746 All edits/amendments must be made on the electronic document DICTATION DATE: 01/29/19745 SHOPPER MARKETING MANAGER: JORDAN 01/29/19745 RPT#: [id number] DC DATE:01/27/19 STATUS: DIS IN [facility] [address] [place] [address] END OF REPORT
--- NOTE | 2019-01-29 07:54 | MORECARE ---
CASE MANAGEMENT DISCHARGE SUMMARY PATIENT: ABHINAV LAWRENCE UNIT: [id number] ADM DATE: 01/24/19 AGE: 73 : [birth year] SEX: F ROOM/BED: D.5788 AUTHOR: RA WHITE PHYSICIAN: REFERRING PHYSICIAN: NELSON RAM MD DATE OF SERVICE: 01/29/19 Discharge Plan Patient Name: ABHINAV LAWRENCE Facility: [facility]:[place] : 1945 Planned Disposition: Home Anticipated Discharge Date: 01/27/19 Discharge Date: 01/27/2019 Expected LOS: 3 Initial Reviewer: [email or web address] Initial Review Date: 01/24/2019 Generated: 01/29/19 8:54 am DCP- Discharge Planning Updated by [email or web address]: Tiffany Escobar on 01/24/19 4:[address] Patient Name: ABHINAV LAWRENCE Admission Status: ER Accout number: [id number] Admission Date: 01-24-2019 : 1945 Admission Diagnosis: Attending: NELSON RAM Current LOS: 1 Anticipated DC Date: 01-27-2019 Planned Disposition: Home Primary Insurance: [facility] MEDICARE SOLUTIONS Discharge Planning Comments: CM met with patient and her to complete initial dc planning assessment. CM educated patient's on the CM role and verbal consent given by patient's to complete assessment. Patient disoriented at this time. This is a new confusion that has started off and on since she was sick an in the hospital in November. He reports the patient was A&O x 3 yesterday and this began last pm. Patient lives at home with her who cares for her when she gets sick but is normally able to take care of herself. At discharge he said she will return home with him and he feels this is a safe discharge plan. CM discussed availability of home health, rehab services, and medical equipment. He reports she has home health but he cant remember who the agency is at this time. He is unsure that the patient will need any additional services at discharge. CM will continue to follow and will assist as needed with dc plans/needs. Health Club Manager: Tiffany Escobar RN, [facility] DCPIA - Discharge Planning Initial Assessment Updated by [id number]: Tiffany Escobar on 01/24/19 5:37 pm * Is the patient Alert and Oriented? Yes * How many steps to enter\exit or inside your home? Ramp * PCP Dr. Collins * Pharmacy [facility] * Preadmission Environment Home with Family * ADLs Partial Dependent * Partial ADLs (Assistance needed) Ambulation Medication Management * Equipment Cane Oxygen Rolling Walker Wheelchair * Other Equipment [employer] is O2 provider * List name and contact numbers for known caregivers / representatives who currently or will assist patient after discharge: Maddie Lawrence - spouse - [phone] * Verbal permission to speak to the caregivers and representatives has been obtained from the patient. Yes * Community resources currently utilized Home Health * Please name any agencies selected above. Spouse is not sure who the agency is * Additional services required to return to the preadmission environment? No * Can the patient safely return to the preadmission environment? Yes * Has this patient been hospitalized within the prior 30 days at any hospital? No Last DP export: 01/24/19 4:47 p Patient Name: ABHINAV LAWRENCE Page 51204 at 0754 All edits/amendments must be made on the electronic document DICTATION DATE: 01/29/19752 ORGANISATIONAL PSYCHOLOGIST: JORDAN 01/29/19 075 RPT#: [id number] DC DATE:01/27/19 STATUS: DIS IN [facility] [address] [place] [address] END OF REPORT
== END 2019-01-27 18:04 | disposition home or self-care (01) | DRG 189 ==
LOC: D.ER 12:27 → D.M2 15:53 → D.EDHOLD 15:53 → D.M2 16:06
PROVIDERS: Family Medicine; ADMIT Internal Medicine Nephrology; ATTEND Internal Medicine Nephrology
DX: J96.22 Acute and chronic respiratory failure with hypercapnia (principal); N17.9 Acute kidney failure, unspecified; E87.1 Hypo-osmolality and hyponatremia; J98.11 Atelectasis; J96.21 Acute and chronic respiratory failure with hypoxia; J43.9 Emphysema, unspecified; Z86.73 Personal history of transient ischemic attack (TIA), and cerebral infarction without residual deficits

== ENCOUNTER 2019-03-20 21:55 | Inpatient (IN) | payer MEDICARE ==
[~2019-03-20] VITALS: Ht 160 cm; Wt 103.2 kg
[~2019-03-20 21:55] MED LIST changes: +OMNICEF300 MG PO; +PREDNISONE10 MG PO
[2019-03-20 22:29] LABS: UDS - AMPHET NEGATIVE QUAL (NEGATIVE); UDS - BARB NEGATIVE QUAL (NEGATIVE); UDS - BENZO NEGATIVE QUAL (NEGATIVE); UDS - COCAINE NEGATIVE QUAL (NEGATIVE); UDS - OPIATE POSITIVE QUAL (NEGATIVE); UDS - PCP NEGATIVE QUAL (NEGATIVE); UDS - THC NEGATIVE QUAL (NEGATIVE)
[2019-03-20 22:32] LABS: APPEARANCE CLEAR (CLEAR); BILIRUBIN NEGATIVE (NEGATIVE); COLOR DK YELLOW (YELLOW); GLUCOSE NEGATIVE (NEGATIVE); KETONE NEGATIVE (NEGATIVE); NITRITE NEGATIVE (NEGATIVE); PROTEIN TRACE mg/dL (NEGATIVE); SPECIFIC GRAVITY 1.025 (1.005-1.020); UROBILINOGEN NORMAL (NORMAL)
[2019-03-20 22:33] LABS: EPITHELIAL CELLS 0-5 /hpf (0-5); RED CELLS - URINE 0-5 /hpf (0-5); WHITE CELLS - URINE OCC /hpf (0-5)
[2019-03-20 22:34] LABS: AMORPHOUS SEDIMENT <1+ /lpf (NONE SEEN); BACTERIA FEW /hpf (NONE SEEN)
[2019-03-20 22:36] LABS: BASOPHILS 0.3 % (0-2); EOSINOPHILS 1.2 % (0-7); HEMATOCRIT 37.2 % (36.0-48.0); HEMOGLOBIN 11.8 g/dL (12-16); IMMATURE GRANULOCYTES 0.3 % (0-5); LYMPHOCYTES 27.6 % (15-50); MCH 28.4 pg (26.0-34.0); MCHC 31.7 g/dL (31.0-37.0); MCV 89.6 fL (80.0-100.0); MEAN PLATELET VOLUME 9.8 fL (7.4-10.4); MONOCYTES 10.5 % (2-11); NEUTROPHILS 60.1 % (40-80); RBC 4.15 10x6/uL (4.00-5.40); RDW 19.2 % (11.5-14.5); WBC 7.7 10x3/uL (4.8-10.8)
[2019-03-20 22:40] LABS: PLATELET COUNT 193 10x3/uL (130-400)
[2019-03-20 22:44] LABS: INR 1.11 (0.85-1.17); PROTIME 13.8 SECONDS (11.6-15.0)
[2019-03-20 22:50] LABS: ALBUMIN 3.2 g/dL (3.4-5.0); ALKALINE PHOSPHATASE 92 U/L (46-116); ALT (SGPT) 15 U/L (10-68); BILIRUBIN - TOTAL 0.81 mg/dL (0.2-1.3); CALC OSMOLALITY 276 mosm/kg (275-300); CALCIUM 7.9 mg/dL (8.5-10.1); CARBON DIOXIDE 25.4 mmol/L (21.0-32.0); CHLORIDE - SERUM 99 mmol/L (98-107); CREATININE - SERUM 3.7 mg/dL (0.6-1.3); POTASSIUM - SERUM 4.5 mmol/L (3.5-5.1); PROTEIN - SERUM 6.5 g/dL (6.4-8.2); SODIUM 135 mmol/L (136-145); UREA NITROGEN 29 mg/dL (7-18); eGFR NON AFRICAN AMERICAN 13 mL/min (90-120)
[2019-03-20 22:51] LABS: GLUCOSE 121 mg/dL (74-106)
[2019-03-20 23:02] LABS: CKMB 0.9 U/L (0.0-3.6); CREATINE KINASE 68 UL (21-215); MAGNESIUM - SERUM 1.8 mg/dL (1.8-2.4); THYROID STIMULATING HORMONE 2.22 uIU/mL (0.36-3.74)
[2019-03-20 23:03] LABS: TROPONIN-I < 0.017 ng/mL (0.000-0.060)
[2019-03-21] VITALS (26 sets, daily range): BP systolic 92–134; BP diastolic 37–89; Ht 160 cm; Wt 103.2 kg
[2019-03-21 08:25] LABS: HEMATOCRIT 32.6 % (36.0-48.0)
[2019-03-21 09:28] LABS: % SATURATION 15 % (15-55); IRON 55 ug/dl (35-150); TOTAL IRON BIND CAPACITY 344 ug/dl (260-445); UNSAT IRON BIND CAPACITY 289 ug/dl (150-375)
[2019-03-21 14:24] LABS: HEMATOCRIT 30.5 % (36.0-48.0); HEMOGLOBIN 9.3 g/dL (12-16)
[2019-03-21 20:42] LABS: HEMATOCRIT 32.9 % (36.0-48.0); HEMOGLOBIN 10.3 g/dL (12-16)
[2019-03-22] VITALS (25 sets, daily range): BP systolic 122–161; BP diastolic 45–99
[2019-03-22 03:04] LABS: HEMATOCRIT 33.4 % (36.0-48.0); HEMOGLOBIN 10.3 g/dL (12-16)
[2019-03-22 07:50] LABS: HEMATOCRIT 32.5 % (36.0-48.0); HEMOGLOBIN 10.3 g/dL (12-16)
[2019-03-22 08:13] LABS: FOLATE (FOLIC ACID) - SERUM 11.3 ng/mL (>3.0)
[2019-03-22 13:50] LABS: BASOPHILS 0 % (0-2); EOSINOPHILS 0 % (0-7); HEMATOCRIT 30.4 % (36.0-48.0); HEMOGLOBIN 9.6 g/dL (12-16); IMMATURE GRANULOCYTES 0.2 % (0-5); LYMPHOCYTES 7.2 % (15-50); MCH 27.9 pg (26.0-34.0); MCHC 31.6 g/dL (31.0-37.0); MCV 88.4 fL (80.0-100.0); MEAN PLATELET VOLUME 9.7 fL (7.4-10.4); MONOCYTES 1.3 % (2-11); NEUTROPHILS 91.3 % (40-80); RBC 3.44 10x6/uL (4.00-5.40); RDW 17.4 % (11.5-14.5)
[2019-03-22 13:51] LABS: PLATELET COUNT 118 10x3/uL (130-400); WBC 5.4 10x3/uL (4.8-10.8)
[2019-03-22 14:07] LABS: ANION GAP 12.2 mmol/L (8-16); CALCIUM 7.5 mg/dL (8.5-10.1); CARBON DIOXIDE 24.8 mmol/L (21.0-32.0)
[2019-03-22 14:09] LABS: CREATININE - SERUM 1.1 mg/dL (0.6-1.3)
[2019-03-22 14:27] LABS: HEMATOCRIT 31.2 % (36.0-48.0); HEMOGLOBIN 9.9 g/dL (12-16)
[2019-03-22 20:03] LABS: HEMATOCRIT 31.4 % (36.0-48.0); HEMOGLOBIN 10.1 g/dL (12-16)
[2019-03-23] VITALS (14 sets, daily range): BP systolic 131–189; BP diastolic 56–97
[2019-03-23 01:25] LABS: HEMATOCRIT 31.4 % (36.0-48.0)
[2019-03-23 08:14] LABS: HEMATOCRIT 31.7 % (36.0-48.0); HEMOGLOBIN 10.1 g/dL (12-16)
[2019-03-23 14:47] LABS: HEMATOCRIT 30.9 % (36.0-48.0); HEMOGLOBIN 9.9 g/dL (12-16)
[2019-03-23 21:52] LABS: HEMATOCRIT 32.6 % (36.0-48.0); HEMOGLOBIN 10.5 g/dL (12-16)
[2019-03-24 01:43] VITALS: BP 178/61
[2019-03-24 03:00] LABS: HEMATOCRIT 32.6 % (36.0-48.0); HEMOGLOBIN 10.5 g/dL (12-16)
[2019-03-24 05:36] VITALS: BP 158/74
[2019-03-24 08:09] VITALS: BP 184/78
[2019-03-24 08:29] LABS: HEMATOCRIT 33.3 % (36.0-48.0); HEMOGLOBIN 10.5 g/dL (12-16)
[2019-03-24 09:49] LABS: BASOPHILS 0 % (0-2); EOSINOPHILS 0 % (0-7); IMMATURE GRANULOCYTES 0.4 % (0-5); LYMPHOCYTES 6.6 % (15-50); MCH 28.2 pg (26.0-34.0); MCV 88.2 fL (80.0-100.0); MEAN PLATELET VOLUME 10.2 fL (7.4-10.4); MONOCYTES 2.9 % (2-11); NEUTROPHILS 90.1 % (40-80); PLATELET COUNT 145 10x3/uL (130-400); RBC 3.72 10x6/uL (4.00-5.40); RDW 17.8 % (11.5-14.5); WBC 5.5 10x3/uL (4.8-10.8)
[2019-03-24 10:00] LABS: ALBUMIN 3.1 g/dL (3.4-5.0); ALKALINE PHOSPHATASE 76 U/L (46-116); ALT (SGPT) 22 U/L (10-68); CALCIUM 8.2 mg/dL (8.5-10.1); CARBON DIOXIDE 28.2 mmol/L (21.0-32.0); CHLORIDE - SERUM 103 mmol/L (98-107); POTASSIUM - SERUM 3.5 mmol/L (3.5-5.1); PROTEIN - SERUM 5.9 g/dL (6.4-8.2); SODIUM 139 mmol/L (136-145); eGFR NON AFRICAN AMERICAN 87 mL/min (90-120)
[2019-03-24 10:01] LABS: CALC OSMOLALITY 280 mosm/kg (275-300); CREATININE - SERUM 0.7 mg/dL (0.6-1.3); GLUCOSE 147 mg/dL (74-106); UREA NITROGEN 12 mg/dL (7-18)
[2019-03-24 12:11] VITALS: BP 169/51
[2019-03-24 14:28] LABS: HEMATOCRIT 33.1 % (36.0-48.0); HEMOGLOBIN 10.5 g/dL (12-16)
[2019-03-24 15:41] VITALS: BP 168/62
[2019-03-24 20:52] VITALS: BP 168/67
[2019-03-24 20:53] LABS: HEMOGLOBIN 10.4 g/dL (12-16)
[2019-03-25 00:53] VITALS: BP 174/61
[2019-03-25 05:42] VITALS: BP 161/62
[2019-03-25 06:31] LABS: HEMATOCRIT 31.3 % (36.0-48.0); HEMOGLOBIN 10.2 g/dL (12-16); MCH 28.3 pg (26.0-34.0); MCHC 32.6 g/dL (31.0-37.0); MCV 86.9 fL (80.0-100.0); MEAN PLATELET VOLUME 10.6 fL (7.4-10.4); PLATELET COUNT 124 10x3/uL (130-400); RDW 17.2 % (11.5-14.5)
[2019-03-25 06:34] LABS: WBC 2.3 10x3/uL (4.8-10.8)
[2019-03-25 06:36] LABS: ANION GAP 11.4 mmol/L (8-16); BILIRUBIN - TOTAL 0.53 mg/dL (0.2-1.3); CARBON DIOXIDE 29.5 mmol/L (21.0-32.0); CREATININE - SERUM 0.8 mg/dL (0.6-1.3); MAGNESIUM - SERUM 1.5 mg/dL (1.8-2.4); PHOSPHOROUS 1.7 mg/dL (2.5-4.9)
[2019-03-25 06:51] LABS: POTASSIUM - SERUM 2.9 mmol/L (3.5-5.1)
[2019-03-25 09:13] VITALS: BP 136/41
[2019-03-25 09:41] LABS: EOSINOPHILS 1 % (0-7); HYPOCHROMASIA OCC; LYMPHOCYTES 14 % (15-50); MONOCYTES 6 % (2-11); NEUTROPHILS 75 % (40-80); PLATELET ESTIMATE NORMAL
--- NOTE | 2019-03-25 10:41 | MORECARE ---
CASE MANAGEMENT DISCHARGE SUMMARY PATIENT: ABHINAV MONSIVAIS UNIT: [id number] ADM DATE: 03/21/19 AGE: 74 : [birth year] SEX: F ROOM/BED: D.2203 AUTHOR: RA WHITE PHYSICIAN: REFERRING PHYSICIAN: NELSON RAM MD DATE OF SERVICE: 03/25/19 Discharge Plan Patient Name: ABHINAV MONSIVAIS [facility] : 1945 Planned Disposition: Home Health Service Anticipated Discharge Date: Discharge Date: Expected LOS: Initial Reviewer: [email or web address] Initial Review Date: 03/21/2019 Generated: 03/25/19 11:41 am Patient Name: ABHINAV MONSIVAIS Page [phone] at 1041 All edits/amendments must be made on the electronic document DICTATION DATE: 03/25/19 1041 BLACK OFF WORKER: JORDAN 03/25/19 1041 RPT#: [id number] DC DATE: STATUS: ADM IN [facility] [address] [place] [address] END OF REPORT
--- NOTE | 2019-03-25 10:49 | MORECARE ---
CASE MANAGEMENT DISCHARGE SUMMARY PATIENT: ABHINAV MONSIVAIS UNIT: [id number] ADM DATE: 03/21/19 AGE: 74 : [birth year] SEX: F ROOM/BED: D.2203 AUTHOR: CINDY,DOC PHYSICIAN: REFERRING PHYSICIAN: NELSON RAM MD DATE OF SERVICE: 03/25/19 Discharge Plan Patient Name: ABHINAV MONSIVAIS Facility: [facility]:[place] : 1945 Planned Disposition: Home Health Service Anticipated Discharge Date: Discharge Date: Expected LOS: Initial Reviewer: [email or web address] Initial Review Date: 03/21/2019 Generated: 03/25/19 11:48 am Comments DCP- Discharge Planning Updated by [email or web address]: Candace Jacobson on 03/25/19 9:[address] Patient Name: ABHINAV MONSIVAIS Admission Status: ER Accout number: [id number] Admission Date: 03-21-2019 : 1945 Admission Diagnosis: Attending: NELSON RAM Current LOS: 4 Anticipated DC Date: Planned Disposition: Home Health Service Primary Insurance: [facility] MEDICARE SOLUTIONS Discharge Planning Comments: CM met with patient to complete initial dc planning assessment. CM educated patient on the CM role and verbal consent given by patient to complete assessment. Patient lives at home with her where she states she is independent. At discharge patient plans to return home and feels this is a safe discharge. CM discussed availability of home health, rehab services, and medical equipment. She is current with [facility]. Patient has a BSC, Cane, Elevated Toilet Seat, Nebulizer, Walker, wheelchair at home. She has home O2 and a Nebulizer from [facility] [place]. Patient denied known discharge needs at this time. CM will continue to follow and will assist as needed with dc plans/needs. Stripper Cutter Machine: Candace Jacobson DCPIA - Discharge Planning Initial Assessment Updated by [email or web address]: Candace Jacobson on 03/25/19 10:41 am * Is the patient Alert and Oriented? Yes * How many steps to enter\exit or inside your home? RAMP * PCP LINDY * Pharmacy [facility] * Preadmission Environment Home with Family * ADLs Independent * Equipment Bedside Commode Cane Elevated [place] Seat Rolling Walker Shower Chair Walker Wheelchair * List name and contact numbers for known caregivers / representatives who currently or will assist patient after discharge: DARREL MONSIVAIS [phone] * Verbal permission to speak to the caregivers and representatives has been obtained from the patient. N/A * Community resources currently utilized Home Health * Please name any agencies selected above. [facility] * Additional services required to return to the preadmission environment? No * Can the patient safely return to the preadmission environment? Yes * Has this patient been hospitalized within the prior 30 days at any hospital? No Coverage Notice Reviewer: [email or web address] Rosi Jacobson Notice Issued Date-Time: 03/25/2019 10:00 Notice Type: Patient Choice Letter Notice Delivered To: Patient Relationship to Patient: Ethylene Plant Helper Name: Delivery Method: HAND - Hand Delivered Cheryle Days: Prior Verbal Notification: Recipient Understood Notice: Yes Recipient Signature: Yes Med Rec Note Co-signed by Attending: Coverage Notice Comment: Last DP export: 03/25/19 9:41 a Patient Name: ABHINAV MONSIVAIS Page [phone] at 1049 All edits/amendments must be made on the electronic document DICTATION DATE: 03/25/191047 MOLD STACKER: JORDAN 03/25/191047 RPT#: [id number] DC DATE: STATUS: ADM IN [facility] [address] [place] [address] END OF REPORT
[2019-03-25 14:08] VITALS: BP 174/60
[2019-03-25 15:39] LABS: HEMATOCRIT 33.3 % (36.0-48.0); HEMOGLOBIN 10.7 g/dL (12-16)
[2019-03-25 17:47] VITALS: BP 176/61
[2019-03-25 19:59] LABS: HEMATOCRIT 32.4 % (36.0-48.0); HEMOGLOBIN 10.6 g/dL (12-16)
[2019-03-25 21:18] VITALS: BP 188/76
[2019-03-26 02:35] LABS: BASOPHILS 0 % (0-2); EOSINOPHILS 0 % (0-7); HEMATOCRIT 32.8 % (36.0-48.0); HEMOGLOBIN 10.7 g/dL (12-16); IMMATURE GRANULOCYTES 0.7 % (0-5); MCH 28.2 pg (26.0-34.0); MCHC 32.6 g/dL (31.0-37.0); MCV 86.3 fL (80.0-100.0); MEAN PLATELET VOLUME 9.9 fL (7.4-10.4); NEUTROPHILS 87.3 % (40-80); PLATELET COUNT 114 10x3/uL (130-400); RDW 16.7 % (11.5-14.5); WBC 2.8 10x3/uL (4.8-10.8)
[2019-03-26 03:45] LABS: ALBUMIN 2.9 g/dL (3.4-5.0); ALKALINE PHOSPHATASE 60 U/L (46-116); BILIRUBIN - TOTAL 0.51 mg/dL (0.2-1.3); CALCIUM 7.7 mg/dL (8.5-10.1); CARBON DIOXIDE 31.2 mmol/L (21.0-32.0); CHLORIDE - SERUM 100 mmol/L (98-107); CREATININE - SERUM 0.7 mg/dL (0.6-1.3); GLUCOSE 183 mg/dL (74-106); MAGNESIUM - SERUM 1.6 mg/dL (1.8-2.4); POTASSIUM - SERUM 3.2 mmol/L (3.5-5.1); PROTEIN - SERUM 5.7 g/dL (6.4-8.2); SODIUM 137 mmol/L (136-145); eGFR NON AFRICAN AMERICAN 87 mL/min (90-120)
[2019-03-26 03:48] LABS: ALT (SGPT) 34 U/L (10-68); CALC OSMOLALITY 278 mosm/kg (275-300); UREA NITROGEN 13 mg/dL (7-18)
[2019-03-26 05:58] VITALS: BP 151/57
[2019-03-26 09:47] VITALS: BP 161/51
[2019-03-26 12:00] VITALS: BP 170/69
[2019-03-26] MEDS ORDERED: FLORAJEN3 CAPS460 MG PO (12:03)
[2019-03-26] MEDS ORDERED: PREDNISONE10 MG PO (12:04)
[2019-03-26] MEDS ORDERED: FLAGYL500 MG PO (12:04)
[2019-03-26] MEDS ORDERED: Nicoderm [PBKC] TRANSDERM (12:05)
--- NOTE | 2019-03-26 15:00 | MORECARE ---
CASE MANAGEMENT DISCHARGE SUMMARY PATIENT: ABHINAV MONSIVAIS UNIT: [id number] ADM DATE: 03/21/19 AGE: 74 : 47 SEX: F ROOM/BED: D.2203 AUTHOR: RA WHITE PHYSICIAN: REFERRING PHYSICIAN: NELSON RAM MD DATE OF SERVICE: 03/26/19 Discharge Plan Patient Name: ABHINAV MONSIVAIS Facility: [facility]:[place] : 1945 Planned Disposition: Home Health Service Anticipated Discharge Date: Discharge Date: Expected LOS: Initial Reviewer: [email or web address] Initial Review Date: 03/21/2019 Generated: 03/26/19 3:59 pm Comments DCP- Discharge Planning Updated by [email or web address]: Candace Jacobson on 03/26/19 1:[address] Patient discharging home today with [employer] I spoke with Anel and they will see her tomorrow. IMM served and explained DCP- Discharge Planning Updated by [email or web address]: Candace Jacobson on 03/25/19 9:[address] Patient Name: ABHINAV MONSIVAIS Admission Status: ER Accout number: [id number] Admission Date: 03-21-2019 : 1945 Admission Diagnosis: Attending: NELSON RAM Current LOS: 4 Anticipated DC Date: Planned Disposition: Home Health Service Primary Insurance: [facility] [employer]IC[employer] SOLUTIONS Discharge Planning Comments: CM met with patient to complete initial dc planning assessment. CM educated patient on the CM role and verbal consent given by patient to complete assessment. Patient lives at home with her where she states she is independent. At discharge patient plans to return home and feels this is a safe discharge. CM discussed availability of home health, rehab services, and medical equipment. She is current with [employer]. Patient has a BSC, Cane, Elevated Toilet Seat, Nebulizer, Walker, wheelchair at home. She has home O2 and a Nebulizer from [facility]. Patient denied known discharge needs at this time. CM will continue to follow and will assist as needed with dc plans/needs. Agricultural Extension Specialist: Candace Jacobson DCPIA - Discharge Planning Initial Assessment Updated by [id number]: Candace Jacobson on 03/25/19 10:41 am * Is the patient Alert and Oriented? Yes * How many steps to enter\exit or inside your home? RAMP * PCP LINDY * Pharmacy [facility] [address] * Preadmission Environment Home with Family * ADLs Independent * Equipment Bedside Commode Cane Elevated Toliet Seat Rolling Walker Shower Chair Walker Wheelchair * List name and contact numbers for known caregivers / representatives who currently or will assist patient after discharge: DARREL MONSIVAIS [phone] * Verbal permission to speak to the caregivers and representatives has been obtained from the patient. N/A * Community resources currently utilized Home Health * Please name any agencies selected above. [facility] * Additional services required to return to the preadmission environment? No * Can the patient safely return to the preadmission environment? Yes * Has this patient been hospitalized within the prior 30 days at any hospital? No Coverage Notice Reviewer: [id number] Rosi Jacobson Notice Issued Date-Time: 03/25/2019 10:00 Notice Type: Patient Choice Letter Notice Delivered To: Patient Relationship to Patient: Captain Assistant Name: Delivery Method: HAND - Hand Delivered Cheryle Days: Prior Verbal Notification: Recipient Understood Notice: Yes Recipient Signature: Yes Med Rec Note Co-signed by Attending: Coverage Notice Comment: Reviewer: [id number] Rosi Jacobson Notice Issued Date-Time: 03/26/2019 14:55 Notice Type: IM Discharge Notice Notice Delivered To: Patient Relationship to Patient: Captain Assistant Name: Delivery Method: HAND - Hand Delivered Cheryle Days: Prior Verbal Notification: Recipient Understood Notice: Yes Recipient Signature: Yes Med Rec Note Co-signed by Attending: Coverage Notice Comment: Last DP export: 03/25/19 9:49 a Patient Name: ABHINAV MONSIVAIS Page [id number] at 1500 All edits/amendments must be made on the electronic document DICTATION DATE: 03/26/191458 HEBREW CANTOR: JORDAN 03/26/191458 RPT#: [id number] DC DATE: STATUS: ADM IN [facility] [address] [place] [address] END OF REPORT
--- NOTE | 2019-03-26 15:11 | MORECARE ---
CASE MANAGEMENT DISCHARGE SUMMARY PATIENT: ABHINAV MONSIVAIS UNIT: [id number] ADM DATE: 03/21/19 AGE: 74 : 47 SEX: F ROOM/BED: D.2203 AUTHOR: RA WHITE PHYSICIAN: REFERRING PHYSICIAN: NELSON RAM MD DATE OF SERVICE: 03/26/19 Discharge Plan Patient Name: ABHINAV MONSIVAIS Facility: [facility]:[place] : 1945 Planned Disposition: Home Health Service Anticipated Discharge Date: Discharge Date: Expected LOS: Initial Reviewer: [email or web address] Initial Review Date: 03/21/2019 Generated: 03/26/19 4:11 pm Comments DCP- Discharge Planning Updated by [email or web address]: Candace Jacobson on 03/26/19 1:[address] Patient discharging home today with [employer]. I spoke with Anel and they will see her tomorrow. IMM served and explained DCP- Discharge Planning Updated by [email or web address]: Candace Jacobson on 03/25/19 9:[address] Patient Name: ABHINAV MONSIVAIS Admission Status: ER Accout number: [id number] Admission Date: 03-21-2019 : 1945 Admission Diagnosis: Attending: NELSON RAM Current LOS: 4 Anticipated DC Date: Planned Disposition: Home Health Service Primary Insurance: [facility] MEDIC[facility] SOLUTIONS Discharge Planning Comments: CM met with patient to complete initial dc planning assessment. CM educated patient on the CM role and verbal consent given by patient to complete assessment. Patient lives at home with her where she states she is independent. At discharge patient plans to return home and feels this is a safe discharge. CM discussed availability of home health, rehab services, and medical equipment. She is current with [employer]. Patient has a BSC, Cane, Elevated Toilet Seat, Nebulizer, Walker, wheelchair at home. She has home O2 and a Nebulizer from [facility]. Patient denied known discharge needs at this time. CM will continue to follow and will assist as needed with dc plans/needs. Guest History Clerk: Candace Jacobson DCPIA - Discharge Planning Initial Assessment Updated by [id number]: Candace Jacobson on 03/25/19 10:41 am * Is the patient Alert and Oriented? Yes * How many steps to enter\exit or inside your home? RAMP * PCP LINDY * Pharmacy [facility] [address] * Preadmission Environment Home with Family * ADLs Independent * Equipment Bedside Commode Cane Elevated Toliet Seat Rolling Walker Shower Chair Walker Wheelchair * List name and contact numbers for known caregivers / representatives who currently or will assist patient after discharge: DARREL MONSIVAIS [phone] * Verbal permission to speak to the caregivers and representatives has been obtained from the patient. N/A * Community resources currently utilized Home Health * Please name any agencies selected above. [facility] * Additional services required to return to the preadmission environment? No * Can the patient safely return to the preadmission environment? Yes * Has this patient been hospitalized within the prior 30 days at any hospital? No External Providers [facility] Contact Date: Service Request Date: Service Type: Resolution: Reviewer: Comments: Coverage Notice Reviewer: [id number] Rosi Jacobson Notice Issued Date-Time: 03/25/2019 10:00 Notice Type: Patient Choice Letter Notice Delivered To: Patient Relationship to Patient: Lotteries Agent Name: Delivery Method: HAND - Hand Delivered Cheryle Days: Prior Verbal Notification: Recipient Understood Notice: Yes Recipient Signature: Yes Med Rec Note Co-signed by Attending: Coverage Notice Comment: Reviewer: [email or web address] Jacobson Notice Issued Date-Time: 03/26/2019 14:55 Notice Type: IM Discharge Notice Notice Delivered To: Patient Relationship to Patient: Lotteries Agent Name: Delivery Method: HAND - Hand Delivered Cheryle Days: Prior Verbal Notification: Recipient Understood Notice: Yes Recipient Signature: Yes Med Rec Note Co-signed by Attending: Coverage Notice Comment: Last DP export: 03/26/19 2:00 p Patient Name: ABHINAV MONSIVAIS Page 85178 at 1511 All edits/amendments must be made on the electronic document DICTATION DATE: 03/26/191510 SPECIAL PROCEDURES TECHNOLOGIST: JORDAN 03/26/191510 RPT#: [id number] DC DATE: STATUS: ADM IN [facility] [address] [place] [address] END OF REPORT
--- NOTE | 2019-03-27 16:18 | MORECARE ---
CASE MANAGEMENT DISCHARGE SUMMARY PATIENT: ABHINAV MONSIVAIS UNIT: [id number] ADM DATE: 03/21/19 AGE: 74 : 47 SEX: F ROOM/BED: D.2203 AUTHOR: RA WHITE PHYSICIAN: REFERRING PHYSICIAN: NELSON RAM MD DATE OF SERVICE: 03/27/19 Discharge Plan Patient Name: ABHINAV MONSIVAIS Facility: [facility]:[place] : 1945 Planned Disposition: Home Health Service Anticipated Discharge Date: Discharge Date: 03/26/2019 Expected LOS: 0 Initial Reviewer: [id number] Initial Review Date: 03/21/2019 Generated: 03/27/19 5:17 pm Comments DCP- Discharge Planning Updated by [email or web address]: Candace Jacobson on 03/26/19 1:[address] Patient discharging home today with [facility]. I spoke with Anel and they will see her tomorrow. IMM served and explained DCP- Discharge Planning Updated by [email or web address]: Candace Jacobson on 03/25/19 9:[address] Patient Name: ABHINAV MONSIVAIS Admission Status: ER Accout number: [id number] Admission Date: 03-21-2019 : 1945 Admission Diagnosis: Attending: NELSON RAM Current LOS: 4 Anticipated DC Date: Planned Disposition: Home Health Service Primary Insurance: [facility] MEDICARE SOLUTIONS Discharge Planning Comments: CM met with patient to complete initial dc planning assessment. CM educated patient on the CM role and verbal consent given by patient to complete assessment. Patient lives at home with her where she states she is independent. At discharge patient plans to return home and feels this is a safe discharge. CM discussed availability of home health, rehab services, and medical equipment. She is current with [employer]. Patient has a BSC, Cane, Elevated Toilet Seat, Nebulizer, Walker, wheelchair at home. She has home O2 and a Nebulizer from [facility]. Patient denied known discharge needs at this time. CM will continue to follow and will assist as needed with dc plans/needs. Application Integrator: Candace Jacobson DCPIA - Discharge Planning Initial Assessment Updated by [email or web address]: Candace Jacobson on 03/25/19 10:41 am * Is the patient Alert and Oriented? Yes * How many steps to enter\exit or inside your home? RAMP * PCP LINDY * Pharmacy [facility] [address] * Preadmission Environment Home with Family * ADLs Independent * Equipment Bedside Commode Cane Elevated Toliet Seat Rolling Walker Shower Chair Walker Wheelchair * List name and contact numbers for known caregivers / representatives who currently or will assist patient after discharge: DARREL MONSIVAIS [phone] * Verbal permission to speak to the caregivers and representatives has been obtained from the patient. N/A * Community resources currently utilized Home Health * Please name any agencies selected above. [facility] * Additional services required to return to the preadmission environment? No * Can the patient safely return to the preadmission environment? Yes * Has this patient been hospitalized within the prior 30 days at any hospital? No Coverage Notice Reviewer: [id number] Rosi Jacobson Notice Issued Date-Time: 03/25/2019 10:00 Notice Type: Patient Choice Letter Notice Delivered To: Patient Relationship to Patient: Stud Beef Cattle Farmer Name: Delivery Method: HAND - Hand Delivered Cheryle Days: Prior Verbal Notification: Recipient Understood Notice: Yes Recipient Signature: Yes Med Rec Note Co-signed by Attending: Coverage Notice Comment: Reviewer: [email or web address] Rosi Jacobson Notice Issued Date-Time: 03/26/2019 14:55 Notice Type: IM Discharge Notice Notice Delivered To: Patient Relationship to Patient: Stud Beef Cattle Farmer Name: Delivery Method: HAND - Hand Delivered Cheryle Days: Prior Verbal Notification: Recipient Understood Notice: Yes Recipient Signature: Yes Med Rec Note Co-signed by Attending: Coverage Notice Comment: Last DP export: 03/26/19 2:11 p Patient Name: ABHNIAV MONSIVAIS Page 91800 at 1618 All edits/amendments must be made on the electronic document DICTATION DATE: 03/27/191616 SOOT BLOWER: JORDAN 03/27/191616 RPT#: [id number] DC DATE:03/26/19 STATUS: DIS IN [facility] [address] [place] [address] END OF REPORT
[2019-03-28 18:07] LABS: AEROBE ID Preliminary report (())
== END 2019-03-26 16:29 | disposition home health service (06) | DRG 871 ==
LOC: D.ER 21:55 → D.ICU 03-21 02:16 → D.MS 03-23 16:20
PROVIDERS: Emergency Medicine; Internal Medicine Pulmonary Disease; ADMIT Internal Medicine Nephrology; ATTEND Internal Medicine Nephrology
DX: R57.8 Other shock (principal); K29.01 Acute gastritis with bleeding; G93.41 Metabolic encephalopathy; J96.22 Acute and chronic respiratory failure with hypercapnia; J96.21 Acute and chronic respiratory failure with hypoxia; N17.0 Acute kidney failure with tubular necrosis; J18.9 Pneumonia, unspecified organism; A04.72 Enterocolitis due to Clostridium difficile, not specified as recurrent; J44.1 Chronic obstructive pulmonary disease with (acute) exacerbation; D64.9 Anemia, unspecified

== ENCOUNTER → 2019-04-08 21:20 | Outpatient (CLI) | payer MEDICARE ==
[2019-03-21 10:38] VITALS: BMI 31.8
[~2019-04-08 21:20] MED LIST changes: +Nicoderm [PBKC] TRANSDERM
== END | disposition home or self-care (01) ==
LOC: D.LABREF 21:20
PROVIDERS: ATTEND Family Medicine
DX: R19.7 Diarrhea, unspecified (principal)

== ENCOUNTER 2019-05-06 19:27 | Emergency (ER) | payer MEDICARE ==
[~2019-05-06] VITALS: Ht 160 cm; Wt 90.9 kg
[2019-05-06 19:51] VITALS: Ht 160 cm; Wt 90.9 kg
[2019-05-06] MEDS ORDERED: KEFLEX500 MG PO (22:31)
[2019-05-06] MEDS ORDERED: VOLTAREN75 MG PO (22:31)
[2019-05-06] MEDS ORDERED: HYDROCODON-ACE1 EA10 PO (22:31)
[2019-05-06] MEDS ORDERED: CLEOCIN HCL300 MG PO (22:31)
[2019-05-07 00:05] VITALS: BP 132/76
== END 2019-05-07 00:05 | disposition home or self-care (01) ==
LOC: D.ER 19:27
DX: S81.011A Laceration without foreign body, right knee, initial encounter (principal); W19.XXXA Unspecified fall, initial encounter; F17.210 Nicotine dependence, cigarettes, uncomplicated; K21.9 Gastro-esophageal reflux disease without esophagitis; J43.9 Emphysema, unspecified

== ENCOUNTER 2019-05-08 17:54 | Emergency (ER) | payer MEDICARE, MEDICAID ==
[~2019-05-08] VITALS: Ht 160 cm; Wt 95.0 kg
[~2019-05-08 17:54] MED LIST changes: +HYDROCODON-ACE1 EA10 PO; +KEFLEX500 MG PO
[2019-05-08 17:56] VITALS: Ht 160 cm; Wt 95.0 kg
[2019-05-08 22:51] VITALS: BP 132/63
== END 2019-05-08 22:52 | disposition other institution (70) ==
LOC: D.ER 17:54
DX: S42.211A Unspecified displaced fracture of surgical neck of right humerus, initial encounter for closed fracture (principal); W18.30XA Fall on same level, unspecified, initial encounter; Y93.89 Activity, other specified; Y92.019 Unspecified place in single-family (private) house as the place of occurrence of the external cause; S00.81XA Abrasion of other part of head, initial encounter; S49.91XA Unspecified injury of right shoulder and upper arm, initial encounter; S89.91XA Unspecified injury of right lower leg, initial encounter

== ENCOUNTER 2019-07-17 10:36 | Observation (INO) | payer MEDICARE, MEDICAID ==
[~2019-07-17] VITALS: Ht 160 cm; Wt 95.3 kg
[2019-07-17 12:29] LABS: BASOPHILS 0.3 % (0-2); EOSINOPHILS 2.1 % (0-7); HEMATOCRIT 38.2 % (36.0-48.0); HEMOGLOBIN 12.2 g/dL (12-16); IMMATURE GRANULOCYTES 0.1 % (0-5); MCHC 31.9 g/dL (31.0-37.0); MCV 84.5 fL (80.0-100.0); MONOCYTES 9.6 % (2-11); NEUTROPHILS 61.9 % (40-80); RBC 4.52 10x6/uL (4.00-5.40); RDW 16.9 % (11.5-14.5); WBC 7.7 10x3/uL (4.8-10.8)
[2019-07-17 12:30] LABS: ALBUMIN 3.2 g/dL (3.4-5.0); ANION GAP 8.6 mmol/L (8-16); BILIRUBIN - TOTAL 0.57 mg/dL (0.2-1.3); CALCIUM 8.5 mg/dL (8.5-10.1); CREATININE - SERUM 1.7 mg/dL (0.6-1.3); POTASSIUM - SERUM 3.6 mmol/L (3.5-5.1)
[2019-07-17 12:38] LABS: THYROID STIMULATING HORMONE 2.25 uIU/mL (0.36-3.74)
[2019-07-17 12:57] LABS: PLATELET COUNT 189 10x3/uL (130-400)
[2019-07-17 15:23] LABS: APPEARANCE CLEAR (CLEAR); COLOR YELLOW (YELLOW); SPECIFIC GRAVITY 1.015 (1.005-1.020)
[2019-07-17 15:24] LABS: BILIRUBIN NEGATIVE (NEGATIVE); GLUCOSE NEGATIVE (NEGATIVE); KETONE NEGATIVE (NEGATIVE); NITRITE NEGATIVE (NEGATIVE); PROTEIN NEGATIVE (NEGATIVE); UROBILINOGEN NORMAL (NORMAL)
--- NOTE | 2019-07-17 15:25 | NUR ---
REPORT TO STACIE AT EXT 2151. PT TO BE ADMITTED TO ROOM 2130.
--- NOTE | 2019-07-17 16:04 | NUR ---
RECEIVED PT FROM ER. PT IS AAO AND UP AD FRANC. RR EVEN AND UNLABORED ON RA. TELEMETRY APPLIED. VSS AND WNL. PT IS NO LONGER HYPOTENSIVE WITH A BP OF 105/48. QUICKSTART AND MED REQ COMPLETE. NS INFUSING @100ML/HR VIA RIGHT AC PIV. WILL CTM.
[2019-07-17 16:35] VITALS: BP 105/48; BMI 37.2
[2019-07-17 17:18] LABS: APTT 33.3 SECONDS (22.8-39.4); INR 1.06 (0.85-1.17); PROTIME 13.3 SECONDS (11.6-15.0)
[2019-07-17 20:00] VITALS: BP 156/54
--- NOTE | 2019-07-17 21:49 | NUR ---
NICOTINE PATCH PLACED TO LEFT UPPER ARM. PT DENIES PAIN OR NEEDS, BED LOW, CL IN REACH.
[2019-07-18] VITALS: BP 127/41
--- NOTE | 2019-07-18 02:20 | NUR ---
RESTING WITH EYES CLOSED, RESPERATIONS EVEN, NO S/S DISTRESS NOTED.
[2019-07-18 04:30] VITALS: BP 130/42
--- NOTE | 2019-07-18 05:29 | NUR ---
I have reviewed this patient and I concur with the Shift Assessment completed by the Licensed Practical Nurse today this shift.
--- NOTE | 2019-07-18 05:29 | NUR ---
I have reviewed this patient and I concur with the Shift Assessment completed by the Licensed Practical Nurse today this shift.
[2019-07-18 06:19] LABS: BASOPHILS 0.4 % (0-2); EOSINOPHILS 1.6 % (0-7); IMMATURE GRANULOCYTES 0.2 % (0-5); LYMPHOCYTES 25.4 % (15-50); MCH 26.6 pg (26.0-34.0); MCHC 31.4 g/dL (31.0-37.0); MCV 84.7 fL (80.0-100.0); MEAN PLATELET VOLUME 10.1 fL (7.4-10.4); MONOCYTES 11.4 % (2-11); PLATELET COUNT 154 10x3/uL (130-400); RBC 4.13 10x6/uL (4.00-5.40); RDW 16.8 % (11.5-14.5)
[2019-07-18 06:49] LABS: ANION GAP 10.4 mmol/L (8-16); CALCIUM 8.2 mg/dL (8.5-10.1); MAGNESIUM - SERUM 1.7 mg/dL (1.8-2.4); PHOSPHOROUS 3.5 mg/dL (2.5-4.9)
[2019-07-18 06:50] LABS: CREATININE - SERUM 1.1 mg/dL (0.6-1.3); POTASSIUM - SERUM 4.4 mmol/L (3.5-5.1)
--- NOTE | 2019-07-18 06:50 | NUR ---
REPORT RECEIVED. SHE IS ALERT ABLE TO VOICE NEEDS OFFERS NO C/O AT THIS TIME. SHE HAS O2 OFF AT THIS TIME STATES I WEAR THAT AT NIGHT AND WHEN I WANT TO. SAFETY PRECAUTIONS IN PLACE WITH CAREPLAN REVIEW DONE. BED IN LOWEST POSITION AND LOCKED. MER ALARM IS ON AND WORKING.
[2019-07-18 06:51] LABS: WBC 5.7 10x3/uL (4.8-10.8)
[2019-07-18 08:30] VITALS: BP 138/47
--- NOTE | 2019-07-18 09:34 | NUR ---
Pt admitted 07/17/19. 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 She states she fell several months ago and injured it. Measurements are 2cm x 14cm x 0.4cm. She is seen at the [facility] wound clinic and is treated with layer of collagen and layer of calcium alginate. On the left lira there is a red area (7cm x 7cm) with a 0.3cm x 0.3cm open area. She states the area is very tender and drains then closes then drains. At this moment it is closed and no drainage is noted. Recommend obtaining a culture when it opens again. Until then, it was gently cleansed with wound rug cleaner and covered with a piece of fred and calcium alginate. Wound care will continue monitoring.
[2019-07-18 12:44] VITALS: BP 142/54
[2019-07-18 13:56] VITALS: Ht 160 cm; Wt 95.3 kg
--- NOTE | 2019-07-18 15:41 | NUR ---
OT NOTE: PT COMPLETED BED MOB TASKS WITH SBA. PT COMPLETED EOB SITTING WITH SBA. PT COMPLETED GROOMING TASKS WITH SET UP. PT DOES NOT WEAR RUE SLING. PT TOLERATED THERAPY WELL. THANK YOU, STERLING HDEZ
--- NOTE | 2019-07-18 17:00 | NUR ---
DISCHARGE INSTRUCTIONS EXPLAINED IN DETAIL TO HER INCLUDING WHEN TO HOLD LASIX AND DECREASE IN LISINOPRIL. SALINE LOCK D/C WITH CATH TIP INTACT. TELEMETRY RETURNED TO DIRECTOR. SHE WAS TRANSPORTED VIA W/C TO [facility] IN STABLE CONDITION
--- NOTE | 2019-07-21 09:11 | MORECARE ---
CASE MANAGEMENT DISCHARGE SUMMARY PATIENT: ABHINAV MONSIVAIS UNIT: [id number] ADM DATE: 07/17/19 AGE: 74 : 47 SEX: F ROOM/BED: D.2130 AUTHOR: RA WHITE PHYSICIAN: REFERRING PHYSICIAN: ANH TOLBERT MD DATE OF SERVICE: 07/21/19 Discharge Plan Patient Name: ABHINAV MONSIVAIS [facility] [facility] 1945 Planned Disposition: Home Anticipated Discharge Date: 07/18/19 Discharge Date: 07/18/2019 Expected LOS: 1 Initial Reviewer: [email or web address] Initial Review Date: 07/21/2019 Generated: 07/21/19 10:11 am Coverage Notice Reviewer: [id number] Rosi Cordova Notice Issued Date-Time: 07/18/2019 14:53 Notice Type: Medicare Outpatient Observation Notice Notice Delivered To: Patient Relationship to Patient: Self Family Court Justice Name: Delivery Method: HAND - Hand Delivered Cheryle Days: Prior Verbal Notification: Recipient Understood Notice: Yes Recipient Signature: Yes Med Rec Note Co-signed by Attending: Coverage Notice Comment: Patient Name: ABHINAV MONSIVAIS Page 69587 at 0911 All edits/amendments must be made on the electronic document DICTATION DATE: 07/21/19910 LAMP SHADE JOINER: JORDAN 07/21/19910 RPT#: [id number] DC DATE:07/18/19 STATUS: DIS IN [facility] [id number] [place] [address] END OF REPORT
== END 2019-07-18 17:00 | disposition home or self-care (01) ==
LOC: D.ER 10:36 → D.M2 14:48 → OBSVTIME 14:53 → D.M2 07-18 17:00
PROVIDERS: Family Medicine; ADMIT Family Medicine Adult Medicine; ATTEND Family Medicine Adult Medicine
DX: E86.0 Dehydration (principal); N17.9 Acute kidney failure, unspecified; J44.9 Chronic obstructive pulmonary disease, unspecified; E03.9 Hypothyroidism, unspecified; F17.203 Nicotine dependence unspecified, with withdrawal; G62.9 Polyneuropathy, unspecified; G40.909 Epilepsy, unspecified, not intractable, without status epilepticus

== ENCOUNTER → 2019-08-04 20:27 | Outpatient (CLI) | payer MEDICARE, MEDICAID ==
[2019-07-18 13:56] VITALS: BMI 37.2
[2019-08-04 21:00] LABS: BASOPHILS 0.3 % (0-2); EOSINOPHILS 1.9 % (0-7); HEMATOCRIT 32.5 % (36.0-48.0); HEMOGLOBIN 10.4 g/dL (12-16); IMMATURE GRANULOCYTES 0.3 % (0-5); LYMPHOCYTES 22.9 % (15-50); MCH 26.9 pg (26.0-34.0); MEAN PLATELET VOLUME 11.2 fL (7.4-10.4); MONOCYTES 9.3 % (2-11); NEUTROPHILS 65.3 % (40-80); PLATELET COUNT 184 10x3/uL (130-400); RBC 3.87 10x6/uL (4.00-5.40); RDW 17.4 % (11.5-14.5); WBC 7.3 10x3/uL (4.8-10.8)
[2019-08-04 21:33] LABS: C-REACTIVE PROTEIN 2.4 mg/dL (0.0-0.9); CALC OSMOLALITY 288 mosm/kg (275-300); CALCIUM 8.4 mg/dL (8.5-10.1); CARBON DIOXIDE 32.3 mmol/L (21.0-32.0); CHLORIDE - SERUM 100 mmol/L (98-107); CREATINE KINASE 278 UL (21-215); CREATININE - SERUM 1.9 mg/dL (0.6-1.3); GLUCOSE 145 mg/dL (74-106); POTASSIUM - SERUM 5.2 mmol/L (3.5-5.1); SODIUM 137 mmol/L (136-145); UREA NITROGEN 45 mg/dL (7-18); eGFR NON AFRICAN AMERICAN 27 mL/min (90-120)
[2019-08-04 21:41] LABS: CKMB 2.8 U/L (0.0-3.6)
[2019-08-04 22:19] LABS: ERYTHROCYTE SEDIMENTATION RATE 29 mm/hr (0-30)
== END | disposition home or self-care (01) ==
LOC: D.LABREF 20:27
PROVIDERS: ATTEND Orthopaedic Surgery
DX: M86.9 Osteomyelitis, unspecified (principal); L03.116 Cellulitis of left lower limb

== ENCOUNTER → 2019-08-11 20:36 | Outpatient (CLI) | payer MEDICARE, MEDICAID ==
[2019-07-18 13:56] VITALS: BMI 37.2
[2019-08-11 21:03] LABS: BASOPHILS 0.5 % (0-2); EOSINOPHILS 0.8 % (0-7); HEMATOCRIT 36.2 % (36.0-48.0); HEMOGLOBIN 11.4 g/dL (12-16); IMMATURE GRANULOCYTES 0.2 % (0-5); LYMPHOCYTES 22.5 % (15-50); MCH 27.3 pg (26.0-34.0); MCHC 31.5 g/dL (31.0-37.0); MCV 86.8 fL (80.0-100.0); MEAN PLATELET VOLUME 10.8 fL (7.4-10.4); MONOCYTES 4.7 % (2-11); NEUTROPHILS 71.3 % (40-80); RBC 4.17 10x6/uL (4.00-5.40); RDW 17.7 % (11.5-14.5); WBC 6.5 10x3/uL (4.8-10.8)
[2019-08-11 21:20] LABS: PLATELET COUNT 266 10x3/uL (130-400)
[2019-08-11 22:12] LABS: ANION GAP 14.2 mmol/L (8-16); CALCIUM 8.3 mg/dL (8.5-10.1); CARBON DIOXIDE 29.5 mmol/L (21.0-32.0); CREATININE - SERUM 1.3 mg/dL (0.6-1.3); POTASSIUM - SERUM 4.7 mmol/L (3.5-5.1)
[2019-08-11 22:43] LABS: ERYTHROCYTE SEDIMENTATION RATE 2 mm/hr (0-30)
== END | disposition home or self-care (01) ==
LOC: D.LABREF 20:36
PROVIDERS: ATTEND Orthopaedic Surgery
DX: M86.9 Osteomyelitis, unspecified (principal); L03.116 Cellulitis of left lower limb; A49.02 Methicillin resistant Staphylococcus aureus infection, unspecified site; Z51.81 Encounter for therapeutic drug level monitoring

== ENCOUNTER → 2019-08-18 19:20 | Outpatient (CLI) | payer MEDICARE, MEDICAID ==
[2019-07-18 13:56] VITALS: BMI 37.2
[2019-08-18 19:41] LABS: BASOPHILS 0.5 % (0-2); EOSINOPHILS 3.4 % (0-7); HEMATOCRIT 33.3 % (36.0-48.0); HEMOGLOBIN 10.2 g/dL (12-16); IMMATURE GRANULOCYTES 0.2 % (0-5); LYMPHOCYTES 19.8 % (15-50); MCH 26.9 pg (26.0-34.0); MCHC 30.6 g/dL (31.0-37.0); MCV 87.9 fL (80.0-100.0); NEUTROPHILS 68.1 % (40-80); RBC 3.79 10x6/uL (4.00-5.40); RDW 17.2 % (11.5-14.5); WBC 5.9 10x3/uL (4.8-10.8)
[2019-08-18 19:43] LABS: PLATELET COUNT 198 10x3/uL (130-400)
[2019-08-18 20:05] LABS: ANION GAP 11.8 mmol/L (8-16); CALCIUM 7.8 mg/dL (8.5-10.1); CARBON DIOXIDE 28.7 mmol/L (21.0-32.0); CREATININE - SERUM 1.3 mg/dL (0.6-1.3); POTASSIUM - SERUM 4.5 mmol/L (3.5-5.1)
[2019-08-18 21:13] LABS: ERYTHROCYTE SEDIMENTATION RATE 34 mm/hr (0-30)
== END | disposition home or self-care (01) ==
LOC: D.LABREF 19:20
PROVIDERS: ATTEND Orthopaedic Surgery
DX: T84.59XA Infection and inflammatory reaction due to other internal joint prosthesis, initial encounter (principal); L03.116 Cellulitis of left lower limb

== ENCOUNTER → 2019-08-25 12:39 | Outpatient (CLI) | payer MEDICARE, MEDICAID ==
[2019-07-18 13:56] VITALS: BMI 37.2
[2019-08-25 12:46] LABS: BASOPHILS 0.3 % (0-2); HEMATOCRIT 32.5 % (36.0-48.0); HEMOGLOBIN 10.1 g/dL (12-16); IMMATURE GRANULOCYTES 0.1 % (0-5); LYMPHOCYTES 17.6 % (15-50); MCH 26.9 pg (26.0-34.0); MCHC 31.1 g/dL (31.0-37.0); MCV 86.4 fL (80.0-100.0); MEAN PLATELET VOLUME 9.9 fL (7.4-10.4); PLATELET COUNT 184 10x3/uL (130-400); RBC 3.76 10x6/uL (4.00-5.40); RDW 17.4 % (11.5-14.5); WBC 7.3 10x3/uL (4.8-10.8)
[2019-08-25 13:08] LABS: ANION GAP 9.2 mmol/L (8-16); C-REACTIVE PROTEIN 8.6 mg/dL (0.0-0.9); CALCIUM 8.3 mg/dL (8.5-10.1); CARBON DIOXIDE 32.5 mmol/L (21.0-32.0); CREATININE - SERUM 1.7 mg/dL (0.6-1.3); POTASSIUM - SERUM 4.7 mmol/L (3.5-5.1)
[2019-08-25 13:39] LABS: ERYTHROCYTE SEDIMENTATION RATE 39 mm/hr (0-30)
== END | disposition home or self-care (01) ==
LOC: D.LABREF 12:39
PROVIDERS: ATTEND Orthopaedic Surgery
DX: T84.59XA Infection and inflammatory reaction due to other internal joint prosthesis, initial encounter (principal); B95.62 Methicillin resistant Staphylococcus aureus infection as the cause of diseases classified elsewhere; I12.9 Hypertensive chronic kidney disease with stage 1 through stage 4 chronic kidney disease, or unspecified chronic kidney disease

== ENCOUNTER → 2019-09-01 21:37 | Outpatient (CLI) | payer MEDICARE, MEDICAID ==
[2019-07-18 13:56] VITALS: BMI 37.2
[2019-09-01 22:36] LABS: BASOPHILS 0.3 % (0-2); EOSINOPHILS 2.7 % (0-7); HEMATOCRIT 32.7 % (36.0-48.0); IMMATURE GRANULOCYTES 0.4 % (0-5); LYMPHOCYTES 24.7 % (15-50); MCHC 30.6 g/dL (31.0-37.0); MCV 88.1 fL (80.0-100.0); MEAN PLATELET VOLUME 10.2 fL (7.4-10.4); MONOCYTES 7.1 % (2-11); NEUTROPHILS 64.8 % (40-80); RBC 3.71 10x6/uL (4.00-5.40); RDW 17.8 % (11.5-14.5)
[2019-09-01 22:37] LABS: PLATELET COUNT 253 10x3/uL (130-400)
[2019-09-01 22:53] LABS: ANION GAP 8.8 mmol/L (8-16); C-REACTIVE PROTEIN 3.7 mg/dL (0.0-0.9); CALCIUM 8.6 mg/dL (8.5-10.1); CARBON DIOXIDE 33.1 mmol/L (21.0-32.0); CREATININE - SERUM 1.2 mg/dL (0.6-1.3); POTASSIUM - SERUM 4.9 mmol/L (3.5-5.1)
[2019-09-01 23:39] LABS: ERYTHROCYTE SEDIMENTATION RATE 49 mm/hr (0-30)
== END | disposition home or self-care (01) ==
LOC: D.LABREF 21:37
PROVIDERS: ATTEND Orthopaedic Surgery
DX: T84.59XA Infection and inflammatory reaction due to other internal joint prosthesis, initial encounter (principal); L03.116 Cellulitis of left lower limb

== ENCOUNTER → 2019-09-08 14:44 | Outpatient (CLI) | payer MEDICARE, MEDICAID ==
[2019-07-18 13:56] VITALS: BMI 37.2
[2019-09-08 14:56] LABS: BASOPHILS 0.4 % (0-2); HEMATOCRIT 36.6 % (36.0-48.0); HEMOGLOBIN 11.1 g/dL (12-16); IMMATURE GRANULOCYTES 0.4 % (0-5); LYMPHOCYTES 20.6 % (15-50); MCH 26.5 pg (26.0-34.0); MCHC 30.3 g/dL (31.0-37.0); MCV 87.4 fL (80.0-100.0); MONOCYTES 9.4 % (2-11); NEUTROPHILS 65.2 % (40-80); PLATELET COUNT 267 10x3/uL (130-400); RBC 4.19 10x6/uL (4.00-5.40); RDW 16.9 % (11.5-14.5); WBC 7.4 10x3/uL (4.8-10.8)
[2019-09-08 15:20] LABS: ALBUMIN 3.3 g/dL (3.4-5.0); ANION GAP 10.4 mmol/L (8-16); BILIRUBIN - TOTAL 0.4 mg/dL (0.2-1.3); CARBON DIOXIDE 31.4 mmol/L (21.0-32.0); CREATININE - SERUM 1.1 mg/dL (0.6-1.3); POTASSIUM - SERUM 4.8 mmol/L (3.5-5.1); PROTEIN - SERUM 7.2 g/dL (6.4-8.2)
[2019-09-08 15:21] LABS: CALCIUM 8.4 mg/dL (8.5-10.1)
[2019-09-08 17:15] LABS: ERYTHROCYTE SEDIMENTATION RATE 27 mm/hr (0-30)
== END | disposition home or self-care (01) ==
LOC: D.LABREF 14:44
PROVIDERS: ATTEND Orthopaedic Surgery
DX: T84.59XA Infection and inflammatory reaction due to other internal joint prosthesis, initial encounter (principal)

== ENCOUNTER 2019-12-12 11:33 | Inpatient (IN) | payer MEDICARE, MEDICAID ==
[~2019-12-12] VITALS: Ht 160 cm; Wt 94.3 kg
[2019-12-12] VITALS (8 sets, daily range): BP systolic 127–153; BP diastolic 49–78; BMI 36.9
--- NOTE | 2019-12-12 11:55 | NUR ---
LAB AT BS BCX2 AND LACTATE DRAWN
[2019-12-12 12:05] LABS: BASOPHILS 0.1 % (0-2); EOSINOPHILS 0.8 % (0-7); HEMATOCRIT 35.6 % (36.0-48.0); HEMOGLOBIN 10.6 g/dL (12-16); IMMATURE GRANULOCYTES 0.3 % (0-5); LYMPHOCYTES 24.7 % (15-50); MCH 24.7 pg (26.0-34.0); MCHC 29.8 g/dL (31.0-37.0); MEAN PLATELET VOLUME 9.4 fL (7.4-10.4); NEUTROPHILS 64.1 % (40-80); RBC 4.29 10x6/uL (4.00-5.40); RDW 18.2 % (11.5-14.5); WBC 7.8 10x3/uL (4.8-10.8)
[2019-12-12 12:11] LABS: PLATELET COUNT 188 10x3/uL (130-400)
[2019-12-12 12:16] LABS: APTT 31.4 SECONDS (22.8-39.4); INR 1.05 (0.85-1.17); PROTIME 13.6 SECONDS (11.6-15.0)
[2019-12-12 12:17] LABS: CALC OSMOLALITY 277 mosm/kg (275-300); CALCIUM 7.7 mg/dL (8.5-10.1); CARBON DIOXIDE 30.3 mmol/L (21.0-32.0); CHLORIDE - SERUM 102 mmol/L (98-107); CREATININE - SERUM 1.4 mg/dL (0.6-1.3); GLUCOSE 119 mg/dL (74-106); SODIUM 137 mmol/L (136-145); UREA NITROGEN 22 mg/dL (7-18); eGFR NON AFRICAN AMERICAN 39 mL/min (90-120)
[2019-12-12 12:31] LABS: ALBUMIN 2.9 g/dL (3.4-5.0); ALKALINE PHOSPHATASE 94 U/L (30-120); ALT (SGPT) 18 U/L (10-68); CKMB 1.9 U/L (0.0-3.6); CREATINE KINASE 103 UL (21-215); PROTEIN - SERUM 5.6 g/dL (6.4-8.2); TROPONIN-I 0.042 ng/mL (0.000-0.060)
--- NOTE | 2019-12-12 12:49 | NUR ---
URINE SPEC COLLECTED. LABELED AT BS AND SENT TO LAB
[2019-12-12 13:10] LABS: BILIRUBIN NEGATIVE (NEGATIVE); GLUCOSE NEGATIVE (NEGATIVE); KETONE NEGATIVE (NEGATIVE); NITRITE NEGATIVE (NEGATIVE); SPECIFIC GRAVITY 1.025 (1.005-1.020); UROBILINOGEN NORMAL (NORMAL)
--- NOTE | 2019-12-12 14:40 | NUR ---
TO RADIOLOGY FOR PF TEST WITH TECH
--- NOTE | 2019-12-12 14:44 | NUR ---
SHORT LEG SPLINT PLACED TO E
--- NOTE | 2019-12-12 15:29 | NUR ---
CALLED MED SURG ROOM #223 STILL DIRTY
--- NOTE | 2019-12-12 15:56 | MORECARE ---
CASE MANAGEMENT DISCHARGE SUMMARY PATIENT: ABHINAV MONSIVAIS UNIT: [id number] ADM DATE: 12/12/19 AGE: 74 : 47 SEX: F ROOM/BED: D.[facility]8 AUTHOR: RA WHITE PHYSICIAN: REFERRING PHYSICIAN: NELSON RAM MD DATE OF SERVICE: 12/12/19 Discharge Plan Patient Name: ABHINAV MONSIVAIS [facility] : 1945 Planned Disposition: Home Anticipated Discharge Date: 12/15/19 Discharge Date: Expected LOS: 3 Initial Reviewer: [email or web address] Initial Review Date: 12/12/2019 Generated: 12/12/19 4:56 pm Patient Name: ABHINAV MONSIVAIS Page 78053 at 1556 All edits/amendments must be made on the electronic document DICTATION DATE: 12/12/19 1556 PROJECTION WELDING MACHINE OPERATOR: JORDAN 12/12/19 1556 RPT#: [id number] DC DATE: STATUS: ADM IN [facility] [address] [place] [address] END OF REPORT
--- NOTE | 2019-12-12 16:05 | MORECARE ---
CASE MANAGEMENT DISCHARGE SUMMARY PATIENT: ABHINAV LAWRENCE UNIT: [id number] ADM DATE: 12/12/19 AGE: 74 : 47 SEX: F ROOM/BED: D.2238 AUTHOR: RA WHITE PHYSICIAN: REFERRING PHYSICIAN: NELSON RAM MD DATE OF SERVICE: 12/12/19 Discharge Plan Patient Name: ABHINAV LAWRENCE Facility: [facility]:[place] : 1945 Planned Disposition: Home Anticipated Discharge Date: 12/15/19 Discharge Date: Expected LOS: 3 Initial Reviewer: [id number] Initial Review Date: 12/12/2019 Generated: 12/12/19 5:04 pm DCPIA - Discharge Planning Initial Assessment Updated by [id number]: Tiffany Escobar on 12/12/19 3:57 pm * Is the patient Alert and Oriented? Yes * How many steps to enter\exit or inside your home? Ramp * PCP Dr. Collins * Pharmacy [facility] [address] * Preadmission Environment Home with Family * ADLs Partial Dependent * Partial ADLs (Assistance needed) Ambulation Bathing Dressing Transfers * Equipment Bedside Commode Cane Crutch Nebulizer Oxygen Rolling Walker Wheelchair * List name and contact numbers for known caregivers / representatives who currently or will assist patient after discharge: Maddie Lawrence - spouse - [phone] * Verbal permission to speak to the caregivers and representatives has been obtained from the patient. Yes * Please name any agencies selected above. Has used [facility] in the past. Wants to use them again at nd. MARCO signed in the ER for [facility]. * Additional services required to return to the preadmission environment? Yes * Can the patient safely return to the preadmission environment? Yes * Has this patient been hospitalized within the prior 30 days at any hospital? No Last DP export: 12/12/19 2:56 p Patient Name: ABHINAV LAWRENCE Page [phone] at 1605 All edits/amendments must be made on the electronic document DICTATION DATE: 12/12/19 1604 SUPERINTENDENT DIVISION: JORDAN 12/12/19 1604 RPT#: [id number] DC DATE: STATUS: ADM IN [facility] [address] [place] [address] END OF REPORT
--- NOTE | 2019-12-12 16:09 | NUR ---
AZITHROMYCIN COMPLETED
--- NOTE | 2019-12-12 16:13 | MORECARE ---
CASE MANAGEMENT DISCHARGE SUMMARY PATIENT: ABHINAV LAWRENCE UNIT: [id number] ADM DATE: 12/12/19 AGE: 74 : 47 SEX: F ROOM/BED: D.2238 AUTHOR: CINDY,DOC PHYSICIAN: REFERRING PHYSICIAN: NELSON RAM MD DATE OF SERVICE: 12/12/19 Discharge Plan Patient Name: ABHINAV LAWRENCE Facility: [facility]:[place] : 1945 Planned Disposition: Home Anticipated Discharge Date: 12/15/19 Discharge Date: Expected LOS: 3 Initial Reviewer: [id number] Initial Review Date: 12/12/2019 Generated: 12/12/19 5:13 pm DCP- Discharge Planning Updated by [email or web address]: Tiffany Escobar on 12/12/19 3:[address] DC PLAN: Return home with and wants [facility]. ANTICIPATED DC NEEDS: Wants [facility] - MARCO singed in Er. CM met with patient and her to complete initial dc planning assessment. CM educated patient on the CM role and verbal consent given by patient to complete assessment. CM verified patient's address, phone number, and emergency contact phone numbers. Patient lives at home with her . He reports he has to assist her daily with her ADL's. At discharge patient plans to return home and feels this is a safe discharge. CM discussed availability of home health, rehab services, and medical equipment. Patient reports she has had [facility] in the past and would like HH at ar. [facility] form presented, explained and signed by the patient's for [facility]. [facility]. 3. Signed form placed on patient's chart and a signed copy left with the patient for her records. Transportation provider at discharge will be her . CM will continue to follow and will assist as needed with dc plans/needs. Tiffany Escobar RN, CCM DCPIA - Discharge Planning Initial Assessment Updated by [email or web address]: Tiffany Escobar on 12/12/19 3:57 pm * Is the patient Alert and Oriented? Yes * How many steps to enter\exit or inside your home? Ramp * PCP Dr. Collins * Pharmacy [facility] [address] * Preadmission Environment Home with Family * ADLs Partial Dependent * Partial ADLs (Assistance needed) Ambulation Bathing Dressing Transfers * Equipment Bedside Commode Cane Crutch Nebulizer Oxygen Rolling Walker Wheelchair * List name and contact numbers for known caregivers / representatives who currently or will assist patient after discharge: Maddie Lawrence - spouse - [phone] * Verbal permission to speak to the caregivers and representatives has been obtained from the patient. Yes * Please name any agencies selected above. Has used [facility] in the past. Wants to use them again at ar. MARCO signed in the ER for [facility]. * Additional services required to return to the preadmission environment? Yes * Can the patient safely return to the preadmission environment? Yes * Has this patient been hospitalized within the prior 30 days at any hospital? No Coverage Notice Reviewer: [id number] Rosi Escobar Notice Issued Date-Time: 12/12/2019 14:00 Notice Type: Patient Choice Letter Notice Delivered To: Family Member Relationship to Patient: Spouse A R Collections Rep Name: Maddie Lawrence Delivery Method: HAND - Hand Delivered Cheryle Days: Prior Verbal Notification: Recipient Understood Notice: Yes Recipient Signature: Yes Med Rec Note Co-signed by Attending: Coverage Notice Comment: Last DP export: 12/12/19 3:05 p Patient Name: ABHINAV LAWRENCE Page [phone] at 1613 All edits/amendments must be made on the electronic document DICTATION DATE: 12/12/191612 TIRE BUILDER HEAVY SERVICE: JORDAN 12/12/191612 RPT#: [id number] DC DATE: STATUS: ADM IN [facility] [address] [place] [address] END OF REPORT
--- NOTE | 2019-12-12 16:13 | NUR ---
REPORT TO PENELOPE ROSA
--- NOTE | 2019-12-12 16:15 | NUR ---
TRANSPORTED TO ROOM #2238, CONDITION STABLE.
--- NOTE | 2019-12-12 16:15 | NUR ---
NS INFUSING UPON TX TO ROOM
--- NOTE | 2019-12-12 16:20 | NUR ---
PT ARRIVES TO ROOM VIA STRETCHER. PT IS AAO X 4. O2 VIA NC @ 2L. PT DENIES PRESENCE OF SOB/DYSPNEA AT THIS TIME. RIGHT ANKLE IN SPLINT. CAP REFILL TO RIGHT TOES ARE <3 SECONDS. PT DENIES PRESENCE OF NUMBNESS/TINGLING TO BLE. INCENTIVE SPIROMETER AT BEDSIDE. EDUCATION GIVEN PERTAINING TO IS. PT VERBALIZES UNDERSTANDING AND STATES "I HAVE 2 OF THESE AT HOME". PT ENCOURAGED TO USE IS HOURLY. PT VERBALIZES UNDERSTANDING. ALL FALL PRECAUTIONS ARE IN PLACE EXCEPT YELLOW GOWN. PT REQUESTS TO STAY IN GOWN FROM ER. PLEXI BOOT APPLIED TO LEFT FOOT. BED IS IN THE LOWEST POSITION. CALL LIGHT AND BEDSIDE TABLE ARE WITHIN REACH. SIDE RAILS X 2. PT DENIES FURTHER NEEDS. WILL CONT TO MONITOR.
[2019-12-12] MEDS ORDERED: RANITIDINE HCL150 M1 PO (16:34)
--- NOTE | 2019-12-12 17:40 | NUR ---
PLEXI BOOT PLACED TO PT LEFT FOOT.
[2019-12-12 18:58] LABS: % SATURATION 7 % (15-55); IRON 27 ug/dl (35-150); TOTAL IRON BIND CAPACITY 378 ug/dl (260-445); UNSAT IRON BIND CAPACITY 351 ug/dl (150-375)
--- NOTE | 2019-12-12 21:00 | NUR ---
A/O WITH NO SIGNS OF ACUTE DISTRESS. IV TO THE LT FOREARM WITH NO REDNESS OR SWELLING AT SITE. CLEAN/DRY DRESSING NOTED TO THE RT ANKLE. NO C/O OF TINGLING OR NUMBNESS. NC @2L AND MER ALARM ON. PADDED SIDE RAILS. ASSITED ON AND OFF BED GALLARDO. DENIES NO FURTHER NEEDS AT THIS TIME. CONTINUE PLAN OF CARE.
[2019-12-13] VITALS: BP 140/61
[2019-12-13 04:00] VITALS: BP 140/70
[2019-12-13 05:40] LABS: BASOPHILS 0 % (0-2); EOSINOPHILS 0 % (0-7); HEMATOCRIT 35.3 % (36.0-48.0); HEMOGLOBIN 10.7 g/dL (12-16); IMMATURE GRANULOCYTES 0.4 % (0-5); MCH 24.9 pg (26.0-34.0); MCHC 30.3 g/dL (31.0-37.0); MCV 82.3 fL (80.0-100.0); MEAN PLATELET VOLUME 9.6 fL (7.4-10.4); MONOCYTES 1.1 % (2-11); NEUTROPHILS 88.5 % (40-80); PLATELET COUNT 165 10x3/uL (130-400); RBC 4.29 10x6/uL (4.00-5.40); RDW 17.3 % (11.5-14.5)
[2019-12-13 05:46] LABS: WBC 5.6 10x3/uL (4.8-10.8)
[2019-12-13 06:04] LABS: ALBUMIN 2.5 g/dL (3.4-5.0); ANION GAP 9.5 mmol/L (8-16); BILIRUBIN - TOTAL 0.34 mg/dL (0.2-1.3); CALCIUM 8.1 mg/dL (8.5-10.1); CARBON DIOXIDE 31.3 mmol/L (21.0-32.0); POTASSIUM - SERUM 4.8 mmol/L (3.5-5.1); PROTEIN - SERUM 6.1 g/dL (6.4-8.2)
[2019-12-13 08:17] VITALS: BP 143/65
--- NOTE | 2019-12-13 09:18 | NUR ---
NEW IV STARTED TO RIGHT FORARM THIS MORNING, 20 G, WITH BLOOD RETURN. PATIENT'S ARMS ARE BRUISED AND HAS SCRATCHES ON BOTH ARMS. CHANGED HER DRESSING TO THE RIGHT ANKLE, ELEVATED ON A PILLOW. PAIN PILL GIVEN THIS MORNING, AWAITING A NICOTINE PATCH.
[2019-12-13 11:48] VITALS: BP 143/65
[2019-12-13 13:39] VITALS: Ht 160 cm; Wt 94.3 kg
[2019-12-13 16:29] VITALS: BP 111/42
--- NOTE | 2019-12-13 18:47 | NUR ---
RESTING IN BED, NO DISTRESS NOTED, DRESSING CHANGED TODAY BY DR, IRON INFUSING PER IV, CONT TO MONITOR SUGARS
--- NOTE | 2019-12-13 19:00 | NUR ---
BEDSIDE REPORT RECEIVED AND CARE OF PT ASSUMED. PT LYING IN LOW ACOSTA'S POSITION WITH RIGHT LEG ELEVATED ON 2 PILLOWS. IV TO RIGHT FA PATENT WITH NS INFUSING AT 30 ML/HR. IRON INFUSING AT THIS TIME WELL. DRESING ON RIGHT LOWER LEG CLEAN, DRY AND INTACT. SCD'S IN PLACE. WILL MONITOR FOR NEEDS.
--- NOTE | 2019-12-13 21:08 | NUR ---
HS MEDICATIONS GIVEN TO INCLUDE NORCO PER REQUEST FOR PAIN, PER PRN ORDER. FSBS 176 THIS CHECK REQUIRING COVERAGE WITH 2 UNITS OF INSULIN PER SLIDING SCALE.
[2019-12-13 21:26] VITALS: BP 131/63
[2019-12-14 01:22] VITALS: BP 127/58
[2019-12-14 05:37] VITALS: BP 137/47
[2019-12-14 06:19] LABS: BASOPHILS 0 % (0-2); EOSINOPHILS 0 % (0-7); HEMATOCRIT 32.3 % (36.0-48.0); IMMATURE GRANULOCYTES 0.1 % (0-5); LYMPHOCYTES 5.2 % (15-50); MCH 25.6 pg (26.0-34.0); MCV 82.8 fL (80.0-100.0); MEAN PLATELET VOLUME 9.5 fL (7.4-10.4); MONOCYTES 2.1 % (2-11); NEUTROPHILS 92.6 % (40-80); PLATELET COUNT 171 10x3/uL (130-400); RDW 17.6 % (11.5-14.5)
[2019-12-14 06:34] LABS: WBC 8.7 10x3/uL (4.8-10.8)
[2019-12-14 06:39] LABS: ANION GAP 9.6 mmol/L (8-16); CALCIUM 7.9 mg/dL (8.5-10.1); CARBON DIOXIDE 30.9 mmol/L (21.0-32.0); CREATININE - SERUM 1.2 mg/dL (0.6-1.3); POTASSIUM - SERUM 4.5 mmol/L (3.5-5.1)
[2019-12-14 07:57] VITALS: BP 137/59
--- NOTE | 2019-12-14 09:49 | NUR ---
SLEEPING WHEN I CAME IN THE ROOM, AROUSES TO VOICE. HER RIGHT ANKLE IS ELEVATED ON PILLOW. IV TO RIGHT ARM WITH NS AT 30CC/HR. WEARING OXYGEN AT 2.5 LITERS.
--- NOTE | 2019-12-14 12:41 | NUR ---
THE IV ON THE RIGHT ARM IS NO LONG WORKING, REMOVED IT. STARTED A 20 G TO THE LEFT FORARM.
[2019-12-14 13:15] VITALS: BP 119/52
[2019-12-14 17:13] VITALS: BP 130/56
--- NOTE | 2019-12-14 18:29 | NUR ---
LEFT ARM IV SALINE LOC, USING THE BEDPAN TO VOID. HAS NOT HAD A BM TODAY. RIGHT ANKLE ELEVATED ON PILLOWS. ANTIBIOTICS CHANGED TO PO. SHE STATES "SHE DOES NOT WANT TO GO TO REHAB".
--- NOTE | 2019-12-14 19:00 | NUR ---
BEDSIDE REPORT RECEIVED AND CARE OF PT ASSUMED. PT LYING IN LOW ACOSTA'S POSITION WITH RIGHT LEG ELEVATED ON PILLOWS. O2 IN USE VIA NC AT 2.5 L. IV TO LEFT FA SALINE LOCKED. PLEXI PULSE BOOT IN PLACE ON LLE. WILL MONITOR FOR NEEDS.
[2019-12-14 20:00] VITALS: BP 138/58
--- NOTE | 2019-12-14 21:15 | NUR ---
HS MEDICATIONS GIVEN. FSBS 154 THIS CHECK REQUIRING COVERAGE WITH 2 UNITS OF INSULIN PER SLIDING SCALE. GAVE HS SNACK OF CHOCOLATE PUDDING AND SUSANNAH CRACKERS. PT DECLINES PAIN MEDICATION AT THIS TIME. WILL MONITOR FOR NEEDS.
[2019-12-15 01:05] VITALS: BP 153/55
--- NOTE | 2019-12-15 04:42 | NUR ---
PT HAD BM, BUT URINATED IN BEDPAN ALSO, SO WAS UNABLE TO COLLECT STOOL SAMPLE.
[2019-12-15 05:26] VITALS: BP 106/67
[2019-12-15 05:33] LABS: ANION GAP 8.7 mmol/L (8-16); CALCIUM 7.8 mg/dL (8.5-10.1); CARBON DIOXIDE 31.5 mmol/L (21.0-32.0); POTASSIUM - SERUM 4.2 mmol/L (3.5-5.1)
[2019-12-15 05:49] LABS: BASOPHILS 0 % (0-2); EOSINOPHILS 0 % (0-7); HEMATOCRIT 32.8 % (36.0-48.0); HEMOGLOBIN 9.8 g/dL (12-16); IMMATURE GRANULOCYTES 0.5 % (0-5); LYMPHOCYTES 5.6 % (15-50); MCH 24.7 pg (26.0-34.0); MCHC 29.9 g/dL (31.0-37.0); MCV 82.8 fL (80.0-100.0); NEUTROPHILS 91.9 % (40-80); PLATELET COUNT 196 10x3/uL (130-400); RBC 3.96 10x6/uL (4.00-5.40); RDW 18.1 % (11.5-14.5); WBC 7.3 10x3/uL (4.8-10.8)
--- NOTE | 2019-12-15 08:25 | NUR ---
PATIENT RECIEVED RESTING IN BED WITH PAIN REPORTED TO RIGHT LOWER LEG. RESPIRATIONS NON-LABORED. EDUCATED ON IS AND USE EVERY HOUR WHILE AWAKE. RIGHT LOWER LEG WRAPED WITH EMMY WRAP.02 2 L NC. NON PRODUCTIVE COUGH REPORTED. CL IN REACH
[2019-12-15 08:32] VITALS: BP 157/57
--- NOTE | 2019-12-15 11:17 | NUR ---
Rehab Prescreening Consult recieved and the chart has been reviewed. She is [facility] managed Medicare and will require a PT and OT eval. According to notes she will need an R ORIF of the ankle once she has been treated for the pneumonia. Rehab will follow her and submit her information post op. Will discuss with the CM. Lata Patten RN Clinical Liaison, Rehab
[2019-12-15 12:02] VITALS: BP 136/46
--- NOTE | 2019-12-15 12:15 | NUR ---
OT NOTE: PT SCHEDULED FOR SURGERY TOMORROW SECONDARY TO FIB FX. WILL ASSESS FOLLOWING SURGERY. KATALINA BLAS, OTR/L
--- NOTE | 2019-12-15 13:00 | NUR ---
PATIENT RESTING COMFORABLY AFTER DILAUDID THEN NORCO GIVEN. CL IN REACH
[2019-12-15 15:37] VITALS: BP 167/64
--- NOTE | 2019-12-15 19:00 | NUR ---
BEDSIDE REPORT RECEIVED AND CARE OF PT ASSUMED. PT LYING IN LOW ACOSTA'S POSITION WITH RIGHT LEG ELEVATED ON PILLOWS. IV TO RIGHT AC SALINE LOCKED. WILL MONITOR FOR NEEDS.
[2019-12-15 20:12] VITALS: BP 141/66
--- NOTE | 2019-12-15 20:20 | NUR ---
PT HAD INCONTINENT BM...CHANGED PADS AND CLEANSED PT. PROVIDED BEDPAN FOR PT TO VOID 300 ML YELLOW URINE.
--- NOTE | 2019-12-15 20:24 | NUR ---
HS MEDICAIONS GIVEN. FSBS 288 THIS CHECK REQUIRING COVERAGE WITH 6 UNITS OF INSULIN PER SLIDING SCALE. PROVIDED MOUSTAPHA MICHELLE FOR HS SNACK.
--- NOTE | 2019-12-16 | NUR ---
NPO STATUS BEGINS NOW. ALL FOOD AND DRINK REMOVED FROM PT'S BEDSIDE TABLE.
--- NOTE | 2019-12-16 01:00 | NUR ---
HIBACLENS BATH PERFORMED AND ALL LINENS AND GOWN CHANGED. PT POSITIONED FOR COMFORT WITH RIGHT LEG ELEVATED.
[2019-12-16 04:26] VITALS: BP 151/70
[2019-12-16 05:02] LABS: BASOPHILS 0 % (0-2); EOSINOPHILS 0 % (0-7); HEMATOCRIT 34.7 % (36.0-48.0); HEMOGLOBIN 10.4 g/dL (12-16); IMMATURE GRANULOCYTES 1.1 % (0-5); LYMPHOCYTES 10.4 % (15-50); MCH 24.8 pg (26.0-34.0); MCV 82.8 fL (80.0-100.0); MEAN PLATELET VOLUME 9.6 fL (7.4-10.4); MONOCYTES 1.7 % (2-11); NEUTROPHILS 86.8 % (40-80); PLATELET COUNT 190 10x3/uL (130-400); RBC 4.19 10x6/uL (4.00-5.40); RDW 18.1 % (11.5-14.5)
[2019-12-16 05:25] LABS: WBC 4.7 10x3/uL (4.8-10.8)
[2019-12-16 05:30] LABS: ANION GAP 10.8 mmol/L (8-16); CARBON DIOXIDE 31.6 mmol/L (21.0-32.0); CREATININE - SERUM 0.9 mg/dL (0.6-1.3); POTASSIUM - SERUM 4.4 mmol/L (3.5-5.1)
--- NOTE | 2019-12-16 08:44 | NUR ---
PATIENT RESTING IN BED WITH RIGHT FOOT ELEVATED, SPLINT INTACT. NORCO GIVEN FOR PAIN, NPO FOR ORIF LATER TODAY. ASSISTED WITH BEDPAN. PATINET REFUSED MERILAX DUE TO LOOSE BM'S THROUGH THE NIGHT. CL IN REACH
[2019-12-16 08:49] VITALS: BP 142/55
[2019-12-16 13:53] VITALS: BP 163/62
--- NOTE | 2019-12-16 16:40 | OP ---
PATIENT NAME: ABHINAV LAWRENCE MEDICAL RECORD: [id number] :49 LOCATION:D.MS [id number] ADMISSION DATE:12/12/19 SURGEON: ADDI MONTGOMERY DO DATE OF OPERATION: 12/16/2019 PROCEDURE PERFORMED: Right ankle open reduction internal fixation. PREOPERATIVE DIAGNOSIS: Displaced right ankle fracture, closed. POSTOPERATIVE DIAGNOSIS: Displaced right ankle fracture, closed. INDICATIONS: Ms. Lawrence is a 74-year-old female who twisted her ankle on Sunday12/12/2019 and sustained an ankle fracture. She did have pneumonia and was admitted to the hospital. I told her to wait to do the ankle fracture until she got better medically, and she did. I informed her of the risks including nonunion, malunion, risk for infection, need for further surgery, failure of implants and continued pain. She was okay with that blood clots, and even . She signed the consent. SURGEON: Addi Montgomery DO DESCRIPTION OF PROCEDURE: The patient was taken to the operative suite after given a block by anesthesia in the preoperative area, laid in the supine position, given gram of Ancef, sedated and LMA was placed. The right lower extremity was then prepped and draped. A timeout was performed, everyone was in agreeance with the correct side, site, patient and procedure. I then exsanguinated the right lower extremity with an Esmarch and tourniquet was inflated to 350 mmHg, was up for 35 minutes. Careful dissection was made down to the fibula with a 10 blade scalpel and the fracture was encountered, cleaned out and then reduced with a CrabClaw, plate was then placed on, seen to be in adequate position on AP and lateral, pinned into place and then first locked distally and then proximally as her bone was very soft and did not accommodate a cortical screw and then put 2 TightRopes in after using a clamp to hold the ankle together. She did have some widening medially as a Floyd C fracture. Two TightRopes were put across and held into place. The tourniquet was then let down and any bleeding was coagulated with pickup and Bovie. The skin was then closed with 2-0 Vicryl in inverted interrupted fashions. ZipLine was placed on the ankle, lateral aspect, and she was dressed with Adaptic, 4 x 4s, ABD on the heel and over the incision, cast padding and then a 4 x 30 splint was placed posteriorly and secured into place with 6-inch Ludin wrap. She was then awakened and taken to recovery in stable condition. BLOOD LOSS: Approximately 50 mL. COMPLICATIONS: None. TRANSINT:[id number] Voice Confirmation ID: [id number] DOCUMENT ID: [id number] OPERATIVE REPORT [id number] ABHINAV LAWRENCE MICHAEL D, DO at 1640 CC: [id number] DICTATION DATE: 12/16/19 1311 BILINGUAL HR GENERALIST: 12/16/19 1622 ADM IN [facility] [address] [place] [address]
[2019-12-16 20:36] VITALS: BP 153/57
[2019-12-17 00:45] VITALS: BP 148/54
[2019-12-17 04:18] VITALS: BP 162/58
--- NOTE | 2019-12-17 05:40 | NUR ---
PT RESTING IN BED. EYES CLOSED. NO SIGNS OF DISTRESS. BREATHING EVEN AND UNLABORED. IV SITE RT AC DRESSING CLEAN DRY AND INTACT. NO SIGNS OF INFECTION OR INFULTRATION. 2LO2 NASAL CANNULA. LUNG SOUNDS DIMINISHED. BOWEL SOUNDS ACTIVE. WILL CONTINUE PLAN OF CARE. CALL LIGHT IN REACH. BED LOWERED AND LOCKED. BED RAILS UPX2.
[2019-12-17 07:00] LABS: ANION GAP 8.6 mmol/L (8-16); CALCIUM 7.8 mg/dL (8.5-10.1); CARBON DIOXIDE 31.6 mmol/L (21.0-32.0); CREATININE - SERUM 1.1 mg/dL (0.6-1.3); POTASSIUM - SERUM 4.2 mmol/L (3.5-5.1)
[2019-12-17 07:10] LABS: BASOPHILS 0 % (0-2); EOSINOPHILS 0 % (0-7); HEMATOCRIT 34.4 % (36.0-48.0); HEMOGLOBIN 10.3 g/dL (12-16); LYMPHOCYTES 6.9 % (15-50); MCH 24.8 pg (26.0-34.0); MCHC 29.9 g/dL (31.0-37.0); MCV 82.7 fL (80.0-100.0); MEAN PLATELET VOLUME 10.3 fL (7.4-10.4); MONOCYTES 3.9 % (2-11); NEUTROPHILS 88.2 % (40-80); PLATELET COUNT 189 10x3/uL (130-400); RBC 4.16 10x6/uL (4.00-5.40); RDW 18.1 % (11.5-14.5)
--- NOTE | 2019-12-17 07:20 | NUR ---
ALERT AND ORIENTED, RESTING IN BED WITH EYES OPEN. NO C/O PAIN. NO S/S OF ACUTE DISTRESS NOTED. ON 2L O2, NC. EXPIRATORY WHEEZING AND DIMINISHED LUNGS ALL LOBES. IV TO LEFT AC, NS INFUSING @ 30ML/HR. SITE PATENT WITHOUT REDNESS OR SWELLING. SOFT CAST TO RIGHT ANKLE D/T FX. SCDS ON. PATIENT ACHS. DENIES ANY NEEDS AT THIS TIME. CALL LIGHT IN REACH. WILL CONTINUE TO MONITOR.
[2019-12-17] MEDS ORDERED: oxyCODONE IR PO (07:23)
[2019-12-17] MEDS ORDERED: BAYER CHEWABLE81 MG PO (07:24)
--- NOTE | 2019-12-17 07:28 | NUR ---
I have reviewed this patient and I concur with the Shift Assessment completed by the Licensed Practical Nurse today this shift.
[2019-12-17 07:32] LABS: WBC 6.1 10x3/uL (4.8-10.8)
[2019-12-17 08:49] VITALS: BP 155/71
[2019-12-17 13:12] VITALS: BP 140/68
--- NOTE | 2019-12-17 16:26 | MORECARE ---
CASE MANAGEMENT DISCHARGE SUMMARY PATIENT: ABHINAV LAWRENCE UNIT: [id number] ADM DATE: 12/12/19 AGE: 74 : 47 SEX: F ROOM/BED: D.2238 AUTHOR: CINDYDOC PHYSICIAN: REFERRING PHYSICIAN: NELSON RAM MD DATE OF SERVICE: 12/17/19 Discharge Plan Patient Name: ABHINAV LAWRENCE Facility: [facility]:[place] : 1945 Planned Disposition: Home Anticipated Discharge Date: 12/15/19 Discharge Date: Expected LOS: 3 Initial Reviewer: [id number] Initial Review Date: 12/12/2019 Generated: 12/17/19 5:26 pm Comments DCP- Discharge Planning Updated by [id number]: Audra Cucoericka on 12/17/19 3:[address] Patient is awake and alert at this time and eating supper. She declines rehab. States she will go home with [facility]. DCP- Discharge Planning Updated by [id number]: Tiffany Escobar on 12/12/19 3:[address] DC PLAN: Return home with and wants [facility]. ANTICIPATED DC NEEDS: Wants [facility] in [facility]. CM met with patient and her to complete initial dc planning assessment. CM educated patient on the CM role and verbal consent given by patient to complete assessment. CM verified patient's address, phone number, and emergency contact phone numbers. Patient lives at home with her . He reports he has to assist her daily with her ADL's. At discharge patient plans to return home and feels this is a safe discharge. CM discussed availability of home health, rehab services, and medical equipment. Patient reports she has had [facility] in the past and would like HH at [facility] form presented, explained and signed by the patient's for 1. [facility]. 3. Signed form placed on patient's chart and a signed copy left with the patient for her records. Transportation provider at discharge will be her . CM will continue to follow and will assist as needed with dc plans/needs. Tiffany Escobar RN, [facility] DCPIA - Discharge Planning Initial Assessment Updated by [id number]: Tiffany Escobar on 12/12/19 3:57 pm * Is the patient Alert and Oriented? Yes * How many steps to enter\exit or inside your home? Ramp * PCP Dr. Collins * Pharmacy [facility] on [address] * Preadmission Environment Home with Family * ADLs Partial Dependent * Partial ADLs (Assistance needed) Ambulation Bathing Dressing Transfers * Equipment Bedside Commode Cane Crutch Nebulizer Oxygen Rolling Walker Wheelchair * List name and contact numbers for known caregivers / representatives who currently or will assist patient after discharge: Maddie Lawrence - spouse - [phone] * Verbal permission to speak to the caregivers and representatives has been obtained from the patient. Yes * Please name any agencies selected above. Has used [facility] in the past. Wants to use them again at [facility]. [facility] signed in the ER for [facility]. * Additional services required to return to the preadmission environment? Yes * Can the patient safely return to the preadmission environment? Yes * Has this patient been hospitalized within the prior 30 days at any hospital? No Coverage Notice Reviewer: [email or web address] Rosi Escobar Notice Issued Date-Time: 12/12/2019 14:00 Notice Type: Patient Choice Letter Notice Delivered To: Family Member Relationship to Patient: Spouse Molding Cutter Name: Maddie Lawrence Delivery Method: HAND - Hand Delivered Cheryle Days: Prior Verbal Notification: Recipient Understood Notice: Yes Recipient Signature: Yes Med Rec Note Co-signed by Attending: Coverage Notice Comment: Reviewer: [id number] - Audra Samayoa Notice Issued Date-Time: 12/17/2019 16:18 Notice Type: Patient Choice Letter Notice Delivered To: Patient Relationship to Patient: Self Molding Cutter Name: Delivery Method: HAND - Hand Delivered Cheryle Days: Prior Verbal Notification: Recipient Understood Notice: Yes Recipient Signature: Yes Med Rec Note Co-signed by Attending: Coverage Notice Comment: [facility] - declines rehab Last DP export: 12/12/19 3:13 p Patient Name: ABHINAV LAWRENCE Page [id number] at 1626 All edits/amendments must be made on the electronic document DICTATION DATE: 12/17/196 FISHERY DIVISION CHIEF: JORDAN 12/17/191625 RPT#: [id number] [place] DATE: STATUS: ADM IN [facility] [address] [place] [address] END OF REPORT
--- NOTE | 2019-12-17 16:41 | NUR ---
OT NOTE: ATTEMPTED EVALUATION HOWEVER PT WAS TOO LETHARGIC TO PARTICIPATE. NURSING NOTIFIED AND VITALS WERE BEING CHECKED. WILL ATTEMPT TOMORROW. KATALINA BLAS, OTR/L
[2019-12-17 16:45] VITALS: BP 165/69
--- NOTE | 2019-12-17 17:40 | NUR ---
I have reviewed this patient and I concur with the Shift Assessment completed by the Licensed Practical Nurse today this shift.
--- NOTE | 2019-12-17 18:32 | NUR ---
ALERT AND ORIENTED, RESTING IN BED WITH EYES OPEN. FAMILY AT BEDSIDE. NO C/O PAIN. NO S/S OF ACUTE DISTRESS NOTED. DENIES ANY NEEDS AT THIS TIME. CALL LIGHT IN REACH. WILL CONTINUE TO MONITOR.
[2019-12-17 19:30] VITALS: BP 152/58
[2019-12-18 00:30] VITALS: BP 150/62
--- NOTE | 2019-12-18 01:38 | NUR ---
PT RESTING IN BED. EYES CLOSED. NO SIGNS OF DISTRESS. BREATHING EVEN AND UNLABORED. IV SITE RT AC DRESSING CLEAN DRY AND INTACT. NO SIGNS OF INFECTION OR INFULTRATION. RT FOOT CAST CLEAN DRY AND INTACT. WILL CONTINUE PLAN OF CARE. CALL LIGHT IN REACH. BED LOWERED AND LOCKED. BED RAILS UPX1.
[2019-12-18 05:00] VITALS: BP 146/70
--- NOTE | 2019-12-18 05:02 | NUR ---
I have reviewed this patient and I concur with the Shift Assessment completed by the Licensed Practical Nurse today this shift.
[2019-12-18 05:06] LABS: BASOPHILS 0 % (0-2); EOSINOPHILS 0 % (0-7); HEMOGLOBIN 10.6 g/dL (12-16); IMMATURE GRANULOCYTES 1.9 % (0-5); LYMPHOCYTES 7.5 % (15-50); MCH 25.2 pg (26.0-34.0); MCHC 30.3 g/dL (31.0-37.0); MCV 83.3 fL (80.0-100.0); MEAN PLATELET VOLUME 9.5 fL (7.4-10.4); MONOCYTES 4.1 % (2-11); NEUTROPHILS 86.5 % (40-80); PLATELET COUNT 167 10x3/uL (130-400); RDW 17.9 % (11.5-14.5); WBC 5.2 10x3/uL (4.8-10.8)
[2019-12-18 05:18] LABS: ANION GAP 6.3 mmol/L (8-16); CALCIUM 7.6 mg/dL (8.5-10.1); CREATININE - SERUM 1.1 mg/dL (0.6-1.3); POTASSIUM - SERUM 4.3 mmol/L (3.5-5.1)
--- NOTE | 2019-12-18 07:15 | NUR ---
ALERT AND ORIENTED, RESTING IN BED WITH EYES OPEN. NO C/O PAIN. NO S/S OF ACUTE DISTRESS NOTED. NWB TO RIGHT LOWER EXTREMETY. PLEXIBOOTS ON. ON 2L LO2, NC. IV TO RIGHT AC, NS INFUSING @ 30ML/HR. SITE PATENT WITHOUT REDNESS OR SWELLING. LUNG SOUNDS DIMINISHED IN RML, RLL, AND LLL. DENIES ANY NEEDS AT THIS TIME. CALL LIGHT IN REACH. WILL CONTINUE TO MONITOR.
[2019-12-18 08:49] VITALS: BP 170/77
--- NOTE | 2019-12-18 12:05 | MORECARE ---
CASE MANAGEMENT DISCHARGE SUMMARY PATIENT: ABHINAV LAWRENCE UNIT: [id number] ADM DATE: 12/12/19 AGE: 74 : 47 SEX: F ROOM/BED: D.2238 AUTHOR: CINDY,DOC PHYSICIAN: REFERRING PHYSICIAN: NELSON RAM MD DATE OF SERVICE: 12/18/19 Discharge Plan Patient Name: ABHINAV LAWRENCE Facility: [facility]:[place] : 1945 Planned Disposition: Home Anticipated Discharge Date: 12/15/19 Discharge Date: Expected LOS: 3 Initial Reviewer: [email or web address] Initial Review Date: 12/12/2019 Generated: 12/18/19 1:05 pm Comments DCP- Discharge Planning Updated by [id number]: Audra Samayoa on 12/18/19 11:[address] CM met with patient again to discuss rehab. She absolutely refuses rehab. States "I've been through this before." My is strong and used to helping me up. States she has a BSC that he will place next to her recliner and assist getting her up each time. States she has a wheelchair that he will help to put her in and a ramp to the house. States "We do this all the time." States her will stay with her 04/06 and assist every time with getting her up. CM will continue to follow and assist with discharge planning/needs. DCP- Discharge Planning Updated by [id number]: Audra Samayoa on 12/17/19 3:[address] Patient is awake and alert at this time and eating supper. She declines rehab. States she will go home with [facility]. DCP- Discharge Planning Updated by [id number]: Tiffany Escobar on 12/12/19 3:[address] DC PLAN: Return home with and wants [facility]. ANTICIPATED DC NEEDS: Wants [facility] in [facility]. CM met with patient and her to complete initial dc planning assessment. CM educated patient on the CM role and verbal consent given by patient to complete assessment. CM verified patient's address, phone number, and emergency contact phone numbers. Patient lives at home with her . He reports he has to assist her daily with her ADL's. At discharge patient plans to return home and feels this is a safe discharge. CM discussed availability of home health, rehab services, and medical equipment. Patient reports she has had [facility] in the past and would like HH at [place]. [facility] form presented, explained and signed by the patient's for 1. [facility] 2. 3. Signed form placed on patient's chart and a signed copy left with the patient for her records. Transportation provider at discharge will be her . CM will continue to follow and will assist as needed with dc plans/needs. Tiffany Escobar RN, [facility] DCPIA - Discharge Planning Initial Assessment Updated by [id number]: Tiffany Escobar on 12/12/19 3:57 pm * Is the patient Alert and Oriented? Yes * How many steps to enter\\exit or inside your home? Ramp * PCP Dr. Collins * Pharmacy [facility] on [address] * Preadmission Environment Home with Family * ADLs Partial Dependent * Partial ADLs (Assistance needed) Ambulation Bathing Dressing Transfers * Equipment Bedside Commode Cane Crutch Nebulizer Oxygen Rolling Walker Wheelchair * List name and contact numbers for known caregivers / representatives who currently or will assist patient after discharge: Maddie Lawrence - spouse - [phone] * Verbal permission to speak to the caregivers and representatives has been obtained from the patient. Yes * Please name any agencies selected above. Has used [facility] in the past. Wants to use them again at [place]. [facility] signed in the ER for [facility]. * Additional services required to return to the preadmission environment? Yes * Can the patient safely return to the preadmission environment? Yes * Has this patient been hospitalized within the prior 30 days at any hospital? No Coverage Notice Reviewer: [id number] - Tiffany Escobar Notice Issued Date-Time: 12/12/2019 14:00 Notice Type: Patient Choice Letter Notice Delivered To: Family Member Relationship to Patient: Spouse Water Quality Tester Name: Maddie Lawrence Delivery Method: HAND - Hand Delivered Cheryle Days: Prior Verbal Notification: Recipient Understood Notice: Yes Recipient Signature: Yes Med Rec Note Co-signed by Attending: Coverage Notice Comment: Reviewer: [id number] - Audra Samayoa Notice Issued Date-Time: 12/17/2019 16:18 Notice Type: Patient Choice Letter Notice Delivered To: Patient Relationship to Patient: Self Water Quality Tester Name: Delivery Method: HAND - Hand Delivered Cheryle Days: Prior Verbal Notification: Recipient Understood Notice: Yes Recipient Signature: Yes Med Rec Note Co-signed by Attending: Coverage Notice Comment: [facility] - declines rehab Last DP export: 12/17/19 3:26 pm Patient Name: ABHINAV LAWRENCE Page [id number] at 1205 All edits/amendments must be made on the electronic document DICTATION DATE: 12/18/19 1205 FIELD CROP TECHNICAL OFFICER: JORDAN 12/18/19 1205 RPT#: [id number] DC DATE: STATUS: ADM IN [facility] [address] [place] [address] END OF REPORT
[2019-12-18 13:29] VITALS: BP 137/56
--- NOTE | 2019-12-18 13:53 | NUR ---
NUTRITION F/U PT TOLERATING DIABETIC DIET, 25 TO 100% INTAKE MEALS RECENT MEALS. WILL CONTINUE TO MONITOR PO INTAKE, PT PROGRESS. RD FOLLOWING
[2019-12-18] MEDS ORDERED: FLORAJEN3 CAPS460 MG PO (14:55)
[2019-12-18] MEDS ORDERED: MUCINEX600 MG PO (14:55)
[2019-12-18] MEDS ORDERED: Nicoderm [PBKC] TRANSDERM (14:55)
[2019-12-18] MEDS ORDERED: OMNICEF300 MG PO (14:56)
[2019-12-18] MEDS ORDERED: ZITHROMAX500 MG PO (14:56)
--- NOTE | 2019-12-18 15:05 | MORECARE ---
CASE MANAGEMENT DISCHARGE SUMMARY PATIENT: ABHINAV LAWRENCE UNIT: [id number] ADM DATE: 12/12/19 AGE: 74 : 47 SEX: F ROOM/BED: D.2238 AUTHOR: CINDY,DOC PHYSICIAN: REFERRING PHYSICIAN: NELSON RAM MD DATE OF SERVICE: 12/18/19 Discharge Plan Patient Name: ABHINAV LAWRENCE Facility: [facility]:[place] : 1945 Planned Disposition: Home Anticipated Discharge Date: 12/15/19 Discharge Date: Expected LOS: 3 Initial Reviewer: [email or web address] Initial Review Date: 12/12/2019 Generated: 12/18/19 4:04 pm Comments DCP- Discharge Planning Updated by [id number]: Audra Samayoa on 12/18/19 11:[address] CM met with patient again to discuss rehab. She absolutely refuses rehab. States "I've been through this before." My is strong and used to helping me up. States she has a BSC that he will place next to her recliner and assist getting her up each time. States she has a wheelchair that he will help to put her in and a ramp to the house. States "We do this all the time." States her will stay with her 04/06 and assist every time with getting her up. CM will continue to follow and assist with discharge planning/needs. DCP- Discharge Planning Updated by [id number]: Audra Samayoa on 12/17/19 3:[address] Patient is awake and alert at this time and eating supper. She declines rehab. States she will go home with [facility]. DCP- Discharge Planning Updated by [id number]: Tiffany Escobar on 12/12/19 3:[address] DC PLAN: Return home with and wants [facility]. ANTICIPATED DC NEEDS: Wants [facility] in [facility]. CM met with patient and her to complete initial dc planning assessment. CM educated patient on the CM role and verbal consent given by patient to complete assessment. CM verified patient's address, phone number, and emergency contact phone numbers. Patient lives at home with her . He reports he has to assist her daily with her ADL's. At discharge patient plans to return home and feels this is a safe discharge. CM discussed availability of home health, rehab services, and medical equipment. Patient reports she has had [facility] in the past and would like HH at [facility]. [facility] form presented, explained and signed by the patient's for 1. [facility] 2. 3. Signed form placed on patient's chart and a signed copy left with the patient for her records. Transportation provider at discharge will be her . CM will continue to follow and will assist as needed with dc plans/needs. Tiffany Escobar RN, [facility] DCPIA - Discharge Planning Initial Assessment Updated by [id number]: Tiffany Escobar on 12/12/19 3:57 pm * Is the patient Alert and Oriented? Yes * How many steps to enter\\exit or inside your home? Ramp * PCP Dr. Collins * Pharmacy [facility] on [address] * Preadmission Environment Home with Family * ADLs Partial Dependent * Partial ADLs (Assistance needed) Ambulation Bathing Dressing Transfers * Equipment Bedside Commode Cane Crutch Nebulizer Oxygen Rolling Walker Wheelchair * List name and contact numbers for known caregivers / representatives who currently or will assist patient after discharge: Maddie Lawrence - spouse - [phone] * Verbal permission to speak to the caregivers and representatives has been obtained from the patient. Yes * Please name any agencies selected above. Has used [facility] in the past. Wants to use them again at pr. [facility] signed in the ER for [facility]. * Additional services required to return to the preadmission environment? Yes * Can the patient safely return to the preadmission environment? Yes * Has this patient been hospitalized within the prior 30 days at any hospital? No External Providers External Provider: [facility] Next Contact Date: Service Request Date: Service Type: Resolution: Reviewer: Comments: Coverage Notice Reviewer: [id number] - Tiffany Escobar Notice Issued Date-Time: 12/12/2019 14:00 Notice Type: Patient Choice Letter Notice Delivered To: Family Member Relationship to Patient: Spouse Negotiator Name: Maddie Lawrence Delivery Method: HAND - Hand Delivered Cheryle Days: Prior Verbal Notification: Recipient Understood Notice: Yes Recipient Signature: Yes Med Rec Note Co-signed by Attending: Coverage Notice Comment: Reviewer: [id number] - Audra Samayoa Notice Issued Date-Time: 12/17/2019 16:18 Notice Type: Patient Choice Letter Notice Delivered To: Patient Relationship to Patient: Self Negotiator Name: Delivery Method: HAND - Hand Delivered Cheryle Days: Prior Verbal Notification: Recipient Understood Notice: Yes Recipient Signature: Yes Med Rec Note Co-signed by Attending: Coverage Notice Comment: [facility] - [facility] Reviewer: [email or web address] Rosi Samayoa Notice Issued Date-Time: 12/18/2019 15:02 Notice Type: IM Discharge Notice Notice Delivered To: Patient Relationship to Patient: Self Negotiator Name: Delivery Method: HAND - Hand Delivered Cheryle Days: Prior Verbal Notification: Recipient Understood Notice: Yes Recipient Signature: Yes Med Rec Note Co-signed by Attending: Coverage Notice Comment: IMM explained, signed, given, copy placed in MR Last DP export: 12/18/19 11:05 am Patient Name: ABHINAV LAWRENCE Page [id number] at 1505 All edits/amendments must be made on the electronic document DICTATION DATE: 12/18/19 1504 TRAFFIC ASSISTANT: JORDAN 12/18/19 1504 RPT#: [id number] DC DATE: STATUS: ADM IN [facility] [address] [place] [address] END OF REPORT
--- NOTE | 2019-12-18 15:13 | MORECARE ---
CASE MANAGEMENT DISCHARGE SUMMARY PATIENT: ABHINAV LAWRENCE UNIT: [id number] ADM DATE: 12/12/19 AGE: 74 : [birth year] SEX: F ROOM/BED: D.2238 AUTHOR: RA WHITE PHYSICIAN: REFERRING PHYSICIAN: NELSON RAM MD DATE OF SERVICE: 12/18/19 Discharge Plan Patient Name: ABHINAV LAWRENCE Facility: [facility]:[place] : 1945 Planned Disposition: Home Anticipated Discharge Date: 12/15/19 Discharge Date: Expected LOS: 3 Initial Reviewer: [id number] Initial Review Date: 12/12/2019 Generated: 12/18/19 4:13 pm Comments DCP- Discharge Planning Updated by [email or web address]: Audra Samayoa on 12/18/19 2:[address] Patient Name: ABHINAV LAWRENCE Encounter No: [id number] : 1945 Primary Insurance: [facility] MEDICARE SOLUTIONS Anticipated DC Date: 12-15-2019 Planned Disposition: Home External Planned Provider: : DCP follow-up note: Patient and family in agreement with discharge plan. No changes to plan. Patient continues to refuse Rehab. States "I'm no different than I usually am and my can help me." I called and spoke to Dianna at [facility] and they can see the patient on Sunday, she states if they have a cancellation they will see her sooner. The patient is ok with [facility] coming on Sunday, she does not want to choose another home health agency. Case management will follow and assist as needed. Audra Samayoa DCP- Discharge Planning Updated by [id number]: Audra Danita on 12/18/19 11:[address] CM met with patient again to discuss rehab. She absolutely refuses rehab. States "I've been through this before." My is strong and used to helping me up. States she has a BSC that he will place next to her recliner and assist getting her up each time. States she has a wheelchair that he will help to put her in and a ramp to the house. States "We do this all the time." States her will stay with her 04/06 and assist every time with getting her up. CM will continue to follow and assist with discharge planning/needs. DCP- Discharge Planning Updated by [id number]: Audra Samayoa on 12/17/19 3:[address] Patient is awake and alert at this time and eating supper. She declines rehab. States she will go home with [facility]. DCP- Discharge Planning Updated by [email or web address]: Tiffany Escobar on 12/12/19 3:[address] DC PLAN: Return home with and wants [facility]. ANTICIPATED DC NEEDS: Wants [facility] - [facility] singed in Er. CM met with patient and her to complete initial dc planning assessment. CM educated patient on the CM role and verbal consent given by patient to complete assessment. CM verified patient's address, phone number, and emergency contact phone numbers. Patient lives at home with her . He reports he has to assist her daily with her ADL's. At discharge patient plans to return home and feels this is a safe discharge. CM discussed availability of home health, rehab services, and medical equipment. Patient reports she has had [facility] in the past and would like HH at me. [facility] form presented, explained and signed by the patient's for 1. [facility] 2. 3. Signed form placed on patient's chart and a signed copy left with the patient for her records. Transportation provider at discharge will be her . CM will continue to follow and will assist as needed with dc plans/needs. Tiffany Escobar RN, [facility] DCPIA - Discharge Planning Initial Assessment Updated by [id number]: Tiffany Escobar on 12/12/19 3:57 pm * Is the patient Alert and Oriented? Yes * How many steps to enter\\exit or inside your home? Ramp * PCP Dr. Collins * Pharmacy [facility] on [address] * Preadmission Environment Home with Family * ADLs Partial Dependent * Partial ADLs (Assistance needed) Ambulation Bathing Dressing Transfers * Equipment Bedside Commode Cane Crutch Nebulizer Oxygen Rolling Walker Wheelchair * List name and contact numbers for known caregivers / representatives who currently or will assist patient after discharge: Maddie Lawrence - spouse - [phone] * Verbal permission to speak to the caregivers and representatives has been obtained from the patient. Yes * Please name any agencies selected above. Has used [facility] in the past. Wants to use them again at me. [facility] signed in the ER for [facility]. * Additional services required to return to the preadmission environment? Yes * Can the patient safely return to the preadmission environment? Yes * Has this patient been hospitalized within the prior 30 days at any hospital? No Coverage Notice Reviewer: [id number] Rosi Samayoa Notice Issued Date-Time: 12/17/2019 16:18 Notice Type: Patient Choice Letter Notice Delivered To: Patient Relationship to Patient: Self Binman Name: Delivery Method: HAND - Hand Delivered Cheryle Days: Prior Verbal Notification: Recipient Understood Notice: Yes Recipient Signature: Yes Med Rec Note Co-signed by Attending: Coverage Notice Comment: [facility] - declines rehab Reviewer: [id number] Rosi Samayoa Notice Issued Date-Time: 12/18/2019 15:02 Notice Type: IM Discharge Notice Notice Delivered To: Patient Relationship to Patient: Self Binman Name: Delivery Method: HAND - Hand Delivered Cheryle Days: Prior Verbal Notification: Recipient Understood Notice: Yes Recipient Signature: Yes Med Rec Note Co-signed by Attending: Coverage Notice Comment: IMM explained, signed, given, copy placed in MR Reviewer: [id number] Rosi Escobar Notice Issued Date-Time: 12/12/2019 14:00 Notice Type: Patient Choice Letter Notice Delivered To: Family Member Relationship to Patient: Spouse Binman Name: Maddie Lawrence Delivery Method: HAND - Hand Delivered Cheryle Days: Prior Verbal Notification: Recipient Understood Notice: Yes Recipient Signature: Yes Med Rec Note Co-signed by Attending: Coverage Notice Comment: Last DP export: 12/18/19 2:05 pm Patient Name: ABHINAV LAWRENCE Page [phone] at 1513 All edits/amendments must be made on the electronic document DICTATION DATE: 12/18/19 1513 PRODUCT COORDINATOR: JORDAN 12/18/19 1513 RPT#: [id number] NM DATE: STATUS: ADM IN [facility] [address] [place] [address] END OF REPORT
[2019-12-18] MEDS ORDERED: PERCOCET 10-321 EAC1 PO (15:18)
[2019-12-18] MEDS ORDERED: BAYER CHEWABLE81 MG PO (15:18)
--- NOTE | 2019-12-18 16:58 | NUR ---
DISCHARGED PATIENT HOME WITH FAMILY VIA WHEELCHAIR. DISCONTINUED IV, CATHETER TIP INTACT. WENT OVER DISCHARGE INSTRUCTIONS WITH PATIENT, VERBALIZED UNDERSTANDING. DENIES ANYTHING FURTHER.
--- NOTE | 2019-12-18 17:49 | NUR ---
OT NOTE: PT COMPLETED BED MOB TASKS WITH CGA-MIN A. [id number] LILI GOMEZ COTA
--- NOTE | 2019-12-19 16:15 | MORECARE ---
CASE MANAGEMENT DISCHARGE SUMMARY PATIENT: ABHINAV LAWRENCE UNIT: [id number] ADM DATE: 12/12/19 AGE: 74 : [birth year] SEX: F ROOM/BED: D.2238 AUTHOR: CINDYDOC PHYSICIAN: REFERRING PHYSICIAN: NELSON RAM MD DATE OF SERVICE: 12/19/19 Discharge Plan Patient Name: ABHINAV LAWRENCE Facility: [facility]:[place] : 1945 Planned Disposition: Home Anticipated Discharge Date: 12/15/19 Discharge Date: 12/18/2019 Expected LOS: 3 Initial Reviewer: [id number] Initial Review Date: 12/12/2019 Generated: 12/19/19 5:15 pm Comments DCP- Discharge Planning Updated by [id number]: Audra Samayoa on 12/18/19 2:[address] Patient Name: ABHINAV LAWRENCE Encounter No: [id number] : 1945 Primary Insurance: [facility] MEDICARE SOLUTIONS Anticipated DC Date: 12-15-2019 Planned Disposition: Home External Planned Provider: : DCP follow-up note: Patient and family in agreement with discharge plan. No changes to plan. Patient continues to refuse Rehab. States "I'm no different than I usually am and my can help me." I called and spoke to Dianna at [facility] and they can see the patient on Sunday, she states if they have a cancellation they will see her sooner. The patient is ok with [facility] coming on Sunday, she does not want to choose another home health agency. Case management will follow and assist as needed. Audra Samayoa DCP- Discharge Planning Updated by [id number]: Audra Danita on 12/18/19 11:[address] CM met with patient again to discuss rehab. She absolutely refuses rehab. States "I've been through this before." My is strong and used to helping me up. States she has a BSC that he will place next to her recliner and assist getting her up each time. States she has a wheelchair that he will help to put her in and a ramp to the house. States "We do this all the time." States her will stay with her 04/06 and assist every time with getting her up. CM will continue to follow and assist with discharge planning/needs. DCP- Discharge Planning Updated by [id number]: Audra Samayoa on 12/17/19 3:[address] Patient is awake and alert at this time and eating supper. She declines rehab. States she will go home with [facility]. DCP- Discharge Planning Updated by [id number]: Tiffany Escobar on 12/12/19 3:[address] DC PLAN: Return home with and wants [facility]. ANTICIPATED DC NEEDS: Wants [facility] - [facility] singed in Er. CM met with patient and her to complete initial dc planning assessment. CM educated patient on the CM role and verbal consent given by patient to complete assessment. CM verified patient's address, phone number, and emergency contact phone numbers. Patient lives at home with her . He reports he has to assist her daily with her ADL's. At discharge patient plans to return home and feels this is a safe discharge. CM discussed availability of home health, rehab services, and medical equipment. Patient reports she has had [facility] in the past and would like HH [place]. [facility] form presented, explained and signed by the patient's for 1. [facility] 2. 3. Signed form placed on patient's chart and a signed copy left with the patient for her records. Transportation provider at discharge will be her . CM will continue to follow and will assist as needed with dc plans/needs. Tiffany Escobar RN, [facility] DCPIA - Discharge Planning Initial Assessment Updated by [id number]: Tiffany Escobar on 12/12/19 3:57 pm * Is the patient Alert and Oriented? Yes * How many steps to enter\\exit or inside your home? Ramp * PCP Dr. Collins * Pharmacy [facility] on [address] * Preadmission Environment Home with Family * ADLs Partial Dependent * Partial ADLs (Assistance needed) Ambulation Bathing Dressing Transfers * Equipment Bedside Commode Cane Crutch Nebulizer Oxygen Rolling Walker Wheelchair * List name and contact numbers for known caregivers / representatives who currently or will assist patient after discharge: Maddie Lawrence - spouse - [phone] * Verbal permission to speak to the caregivers and representatives has been obtained from the patient. Yes * Please name any agencies selected above. Has used [facility] in the past. W[facility] to use them [facility] at [place]. [facility] signed in the ER for [facility]. * Additional services required to return to the preadmission environment? Yes * Can the patient safely return to the preadmission environment? Yes * Has this patient been hospitalized within the prior 30 days at any hospital? No Coverage Notice Reviewer: [id number] Rosi Escobar Notice Issued Date-Time: 12/12/2019 14:00 Notice Type: Patient Choice Letter Notice Delivered To: Family Member Relationship to Patient: Spouse Clinical Data Research Name: Maddie Lawrence Delivery Method: HAND - Hand Delivered Cheryle Days: Prior Verbal Notification: Recipient Understood Notice: Yes Recipient Signature: Yes Med Rec Note Co-signed by Attending: Coverage Notice Comment: Reviewer: [id number] Rosi Samayoa Notice Issued Date-Time: 12/17/2019 16:18 Notice Type: Patient Choice Letter Notice Delivered To: Patient Relationship to Patient: Self Clinical Data Research Name: Delivery Method: HAND - Hand Delivered Cheryle Days: Prior Verbal Notification: Recipient Understood Notice: Yes Recipient Signature: Yes Med Rec Note Co-signed by Attending: Coverage Notice Comment: [facility] - declines rehab Reviewer: [id number] Rosi Samayoa Notice Issued Date-Time: 12/18/2019 15:02 Notice Type: IM Discharge Notice Notice Delivered To: Patient Relationship to Patient: Self Clinical Data Research Name: Delivery Method: HAND - Hand Delivered Cheryle Days: Prior Verbal Notification: Recipient Understood Notice: Yes Recipient Signature: Yes Med Rec Note Co-signed by Attending: Coverage Notice Comment: IMM explained, signed, given, copy placed in MR Last DP export: 12/18/19 2:13 pm Patient Name: ABHINAV LAWRENCE Page [phone] at 1615 All edits/amendments must be made on the electronic document DICTATION DATE: 12/19/19 1615 WASTEWATER PLANT OPERATOR: JORDAN 12/19/19 1615 RPT#: [id number] DC DATE:12/18/19 STATUS: DIS IN [facility] [address] [place] [address] END OF REPORT
--- NOTE | 2019-12-22 12:08 | EC ---
PATIENT:ABHINAV MONSIVAIS DATE OF SERVICE: 12/12/19 SEX: F MEDICAL RECORD: [id number] DATE OF : [birth year] LOCATION:D.[facility] [place] AGE OF PATIENT: 74 ADMISSION DATE: 12/12/19 REFERRING PHYSICIAN: INTERPRETING PHYSICIAN: VANESSA PAN MD ECHOCARDIOGRAM REPORT ECHO CHARGES 4 ECHO COMPLETE Date: 12/13/19 CLINICAL DIAGNOSIS: PERICARDIAL EFFUSION ECHOCARDIOGRAPHIC MEASUREMENTS (adult normal given) AC root (d.<3.7cm) 3.1 cm LV Septum d (<1.2 cm> 1.2 cm Valve Excursion 2.2 cm LV Septum (systole) 1.7 cm Left Atria (s.<4.0cm> 4.3 cm LVPW d(<1.2cm) 0.9 cm RV (d.<2.3cm) 2.9 cm LVPW (sytole) 1.2 cm LV diastole(<5.6CM) 5.2 cm MV E-F(>70mm/sec) cm LV systole 3.7 cm LVOT Diameter 1.8 cm MV exc.(>10mm) cm Est.ejection fraction (50-75%) % DOPPLER: LVIT cm/sec A 132 cm/sec E 109 cm/sec LA cm/sec RVSP 33.7 mmHg LVOT 129 cm/sec AOP1/2T m/s Asc. Ao 213 cm/sec RVOT 94 cm/sec RA cm/sec PA 111 cm/sec AV Gradient Peak 18.1 mmHg AV Mean 8.4 mmHg AV Area 1.7 cm MV Gradient Peak 8.7 mmHg MV Mean 4.6 mmHg MV Area cm COMMENTS: Help Desk Specialist: Gamaliel [facility] Slitter Creaser Slotter Helper: 1 Dr. Pan TAPE# PACS Pericardial Effusion Y DATE OF SERVICE: 12/13/2019 FINDINGS: 1. Left ventricular chamber size is within normal limits. Left ventricular systolic function is normal at 60%. 2. Left atrium is enlarged at 4.3 cm. Right atrium and right ventricle chamber sizes are within normal limits. 3. Valvular structures have normal structure and motion. 4. Doppler interrogation reveals mild aortic insufficiency, mild tricuspid regurgitation, no other valvular insufficiency or stenosis. Pulmonary systolic ECHOCARDIOGRAM REPORT [id number] ABHINAV MONSIVAIS pressure estimated at 34 mmHg. 5. Dkzky-hj-kdzip pericardial effusion is present. This is not hemodynamically significant. No evidence of left ventricular thrombus. TRANSINT:[id number] Voice Confirmation ID: [id number] DOCUMENT ID: [id number] VANESSA PAN MD at 1208 CC: [id number] DICTATION DATE: 12/14/19 1211 CARTOON ANIMATOR: 12/14/19 1730 DIS IN 12/18/19 [place] [id number] [place] [id number]
== END 2019-12-18 17:00 | disposition home health service (06) | DRG 981 ==
LOC: D.ER 11:33 → D.MS 13:46
PROVIDERS: Family Medicine; Orthopaedic Surgery; ADMIT Internal Medicine Nephrology; ATTEND Internal Medicine Nephrology
PROC: 0QSJ04Z Reposition Right Fibula with Internal Fixation Device, Open Approach (ICD-10-PCS; principal; 2019-12-16 11:15)
DX: J15.6 Pneumonia due to other Gram-negative bacteria (principal); J81.0 Acute pulmonary edema; J96.11 Chronic respiratory failure with hypoxia; N17.9 Acute kidney failure, unspecified; S82.831A Other fracture of upper and lower end of right fibula, initial encounter for closed fracture; G62.9 Polyneuropathy, unspecified; F41.8 Other specified anxiety disorders; D64.9 Anemia, unspecified; K21.9 Gastro-esophageal reflux disease without esophagitis; I10 Essential (primary) hypertension; J44.9 Chronic obstructive pulmonary disease, unspecified; E03.9 Hypothyroidism, unspecified

== ENCOUNTER 2020-05-19 10:33 | Day surgery (SDC) | payer MEDICARE, MEDICAID ==
[~2020-05-19] VITALS: Ht 160 cm; Wt 90.7 kg
[~2020-05-19 10:33] MED LIST changes: +BAYER CHEWABLE81 MG PO; +MUCINEX600 MG PO; +NORVASC10 MG PO; +PERCOCET 10-321 EAC1 PO; +RANITIDINE HCL150 M1 PO; +TRELEGY ELLIPT1 EACH INH; +WELLBUTRIN XL150 M1 PO; +ZITHROMAX500 MG PO; +oxyCODONE IR PO
[2020-05-19 11:12] LABS: HEMATOCRIT 39.5 % (36.0-48.0); HEMOGLOBIN 12.6 g/dL (12-16); MCH 30.3 pg (26.0-34.0); MCHC 31.9 g/dL (31.0-37.0); MEAN PLATELET VOLUME 9.4 fL (7.4-10.4); RBC 4.16 10x6/uL (4.00-5.40); RDW 16.2 % (11.5-14.5); WBC 7.3 10x3/uL (4.8-10.8)
[2020-05-19 11:15] LABS: ANION GAP 9.8 mmol/L (8-16); CALCIUM 9.1 mg/dL (8.5-10.1); CARBON DIOXIDE 30.1 mmol/L (21.0-32.0); CREATININE - SERUM 1.2 mg/dL (0.6-1.3); POTASSIUM - SERUM 3.9 mmol/L (3.5-5.1)
[2020-05-19 12:41] VITALS: BP 122/47; Ht 160 cm; Wt 90.7 kg
[2020-05-19] MEDS ORDERED: BACTRIM DS TAB1 EAC1 PO (13:57)
[2020-05-19] MEDS ORDERED: HYDROCODON-ACE1 EA10 PO (13:57)
--- NOTE | 2020-05-19 16:10 | NUR ---
1545 IV REMOVED AND PRESSURE HELD. ASSITED TO BATHROOM WITH WALKER, PAIN EASING AND NO NAUSEA. INSTRUCTIONS AND RX GIVEN TO PT. DR MONTGOMERY CALLED TO CLARIFY IF PT CAN PUT WEIGHT ON FOOT. ORDERS GIVEN.
--- NOTE | 2020-05-20 13:01 | OP ---
PATIENT NAME: ABHINAV LAWRENCE MEDICAL RECORD: [id number] :[birth year] LOCATION:[facility] ADMISSION DATE: SURGEON: JOHN MONTGOMERY DO DATE OF OPERATION: 05/19/2020 PROCEDURE PERFORMED: Right ankle removal of hardware and irrigation and debridement. PREOPERATIVE DIAGNOSIS: Right infected ankle with retained hardware. POSTOPERATIVE DIAGNOSIS: Right infected ankle with retained hardware. INDICATIONS: Ms. Lawrence is a 75-year-old female that presented to my office with a draining sinus from her right ankle. She had an ORIF done back in December and she had purulence pulling out of it. We booked her for today. She said this happened on her left ankle when she had it done 2 years ago. I informed her that we need to get the hardware out and she will be on antibiotics for a while. We will take cultures and treat with oral medicine as it was probably into the bone, had osteomyelitis. The patient was okay with that as were the risks including continued infection, bleeding, pain, fracture, need for further surgery, nonhealing wound, blood clots, and even . Signed the consent. SURGEON: John Montgomery DO. DESCRIPTION OF PROCEDURE: The patient was taken to the suite, laid in supine position. General anesthetic and LMA was placed. She was then prepped and draped in sterile fashion. A timeout was performed and everyone was in agreeance with correct site, side, patient, and procedure and began by making an incision in the right ankle and cutting out the sinus tract and removing the plate. We then irrigated it with normal saline and debrided the wound with a rongeur and bone as well. Cultures were taken prior to all that and she was given a gram of Ancef. The site was then closed after placing restrata graft in the wound by myself and Macario Dorantes, certified surgical technology instructor, with 2-0 Prolene in a retention suture type fashion, dressed with Adaptic, 4 x 4s, ABD and Ludin wrap. She was awakened and taken to recovery in stable condition. ESTIMATED BLOOD LOSS: Minimal. COMPLICATIONS: None. TRANSINT:[id number] Voice Confirmation ID: [id number] DOCUMENT ID: [id number] JOHN MONTGOMERY DO at 1301 CC: [id number] DICTATION DATE: 05/19/20 1400 NUMERICAL CONTROL OPERATOR: 05/20/20 0101 [facility] 05/19/20 [facility] [address] [place] [address]
== END 2020-05-19 16:12 | disposition home or self-care (01) ==
LOC: D.OPS 10:33 → D.PAN 13:00 → D.OPS 13:00
PROVIDERS: Anesthesiology; ATTEND Orthopaedic Surgery
DX: T84.59XA Infection and inflammatory reaction due to other internal joint prosthesis, initial encounter (principal); E03.9 Hypothyroidism, unspecified; F17.200 Nicotine dependence, unspecified, uncomplicated; I10 Essential (primary) hypertension; J44.9 Chronic obstructive pulmonary disease, unspecified

== ENCOUNTER 2021-03-19 07:10 | Inpatient (IN) | payer MEDICARE, MEDICAID ==
[~2021-03-19] VITALS: Ht 160 cm; Wt 94.3 kg
[~2021-03-19 07:10] MED LIST changes: +BACTRIM DS TAB1 EAC1 PO
[2021-03-19 07:40] LABS: BASOPHILS 0.2 % (0-2); EOSINOPHILS 0.7 % (0-7); HEMATOCRIT 42.5 % (36.0-48.0); HEMOGLOBIN 13.2 g/dL (12-16); IMMATURE GRANULOCYTES 0.2 % (0-5); LYMPHOCYTE ABS# 0.69 10x3/uL (1.18-3.74); LYMPHOCYTES 15.4 % (15-50); MCH 28.2 pg (26.0-34.0); MCHC 31.1 g/dL (31.0-37.0); MCV 90.8 fL (80.0-100.0); MEAN PLATELET VOLUME 10.1 fL (7.4-10.4); MONOCYTES 6.7 % (2-11); NEUTROPHIL ABS# 3.43 10x3/uL (1.56-6.13); NEUTROPHILS 76.8 % (40-80); PLATELET COUNT 162 10x3/uL (130-400); RBC 4.68 10x6/uL (4.00-5.40); WBC 4.5 10x3/uL (4.8-10.8)
[2021-03-19 07:46] LABS: CALC OSMOLALITY 289 mosm/kg (275-300); CALCIUM 8.2 mg/dL (8.5-10.1); CARBON DIOXIDE 28.5 mmol/L (21.0-32.0); CHLORIDE - SERUM 107 mmol/L (98-107); CREATININE - SERUM 1.6 mg/dL (0.6-1.3); POTASSIUM - SERUM 4.1 mmol/L (3.5-5.1); SODIUM 143 mmol/L (136-145); UREA NITROGEN 19 mg/dL (7-18); eGFR NON AFRICAN AMERICAN 33 mL/min (90-120)
[2021-03-19 07:47] LABS: GLUCOSE 161 mg/dL (74-106)
[2021-03-19 07:55] LABS: INR 1.44 (0.85-1.17); PROTIME 16.3 SECONDS (11.6-15.0)
[2021-03-19 07:56] LABS: APTT 31.5 SECONDS (22.8-39.4)
[2021-03-19 07:57] LABS: BILIRUBIN NEGATIVE (NEGATIVE); KETONE NEGATIVE (NEGATIVE); NITRITE NEGATIVE (NEGATIVE); UROBILINOGEN NORMAL mg/dL (< 2)
[2021-03-19 07:58] LABS: BACTERIA FEW HPF (NONE SEEN); SQUAMOUS EPITHELIAL 0-5 HPF (0-4); WHITE CELLS - URINE NONE SEEN HPF (0-4)
[2021-03-19 08:06] LABS: ALBUMIN 2.7 g/dL (3.4-5.0); ALKALINE PHOSPHATASE 114 U/L (30-120); ALT (SGPT) 13 U/L (10-68); BILIRUBIN - TOTAL 1.13 mg/dL (0.2-1.3); CKMB 1.1 U/L (0.0-3.6); CREATINE KINASE 61 UL (21-215); PRO BNP 1084 pg/mL (0-125); PROTEIN - SERUM 5.6 g/dL (6.4-8.2)
[2021-03-19 08:12] LABS: TROPONIN-I 0.064 ng/mL (0.000-0.060)
--- NOTE | 2021-03-19 08:12 | NUR ---
CRITICAL LAB: TROPONIN 0.064 DR SPEAR AND ESTER, PRIMARY RN NOTIFIED
[2021-03-19 08:24] LABS: SARS-CoV-2 ANTIGEN NEGATIVE- SARS-COV-2 (NEGATIVE)
[2021-03-19 08:33] VITALS: BP 115/51
--- NOTE | 2021-03-19 09:26 | NUR ---
RECEIVED PT TO ROOM 2138 VIA STRETCHER, PT WAS ABLE TO TRANSFER TO BED FROM STRETCHER X1 ASSIST. PT ON 15L NONREBREATHER SAT 96% RESP EVEN BUT LABORED. LT AC INFUSING LR BOLUS. PT'S REFUSING TO LEAVE, ER NURSE EXPLAINED THAT PT IS A PUI AND CANNOT HAVE ANY VISITORS, PT STILL REFUSING TO LEAVE. MARKETING PERFORMANCE ANALYST CALLED TO COME TALK TO FAMILY. WILL ASSESS PT AND START PLAN OF CARE. HELPED PT TO BATHROOM AND BACK TO BED, HELPED HER CHANGE INTO GOWN. PLACED TELEMETRY ON, AND PROVIDED HER WITH ICE WATER. ALL NEEDS MET, CALL LIGHT IN REACH, WILL START PLAN FO CARE.
[2021-03-19 09:27] VITALS: BP 155/59; BMI 36.9
--- NOTE | 2021-03-19 09:57 | NUR ---
CALLED LAB AND SPOKE WITH VANESSA, INFORMED HER THAT I NEED BLOOD CULTURES DRAWN ON PT BECAUSE I NEED TO HANG ANTIBIOTICS THAT WERE DUE AT 0730.
[2021-03-19 12:01] VITALS: BP 116/47
[2021-03-19 14:32] LABS: CREATINE KINASE 78 UL (21-215)
[2021-03-19 14:37] LABS: TROPONIN-I 0.094 ng/mL (0.000-0.060)
--- NOTE | 2021-03-19 16:34 | NUR ---
INFORMED DR. SAHU REGARDING INCREASED ON TROP FROM 0.[address] SAHU DON'T DRAW ANYMORE TROP. NO OTHER ORDERS AT THIS TIME.
--- NOTE | 2021-03-19 16:54 | NUR ---
PT'S O2 STAYING 97%-98% ON 15L NONREBREATHER. REMOVED NONREBREATHER AND PLACED PT ON 15L HF, PT'S O2 STILL STAYING 97-98% SO TURNED O2 DOWN TO 12HF. O2 MAINTAINED AT 97%.
--- NOTE | 2021-03-19 18:21 | NUR ---
HELPED PT TO BEDSIDE COMMODE AND BACK TO BED. ALL NEEDS MET, CALL LIGHT IN REACH.
--- NOTE | 2021-03-19 20:38 | NUR ---
PM MEDS GIVEN, PROVIDED ICE WATER, DENIES ANY NEEDS, TALKING ON PHONE, BED IS LOW, SRX2, CALL LIGHT IN REACH, WILL CONTINUE PLAN OF CARE
[2021-03-19 20:52] VITALS: BP 116/53
[2021-03-20 01:38] VITALS: BP 124/52
[2021-03-20 05:44] VITALS: BP 126/60
[2021-03-20 06:00] LABS: BASOPHILS 0 % (0-2); EOSINOPHILS 0 % (0-7); HEMATOCRIT 37.3 % (36.0-48.0); HEMOGLOBIN 11.6 g/dL (12-16); IMMATURE GRANULOCYTES 2.2 % (0-5); LYMPHOCYTE ABS# 0.58 10x3/uL (1.18-3.74); LYMPHOCYTES 5.1 % (15-50); MCH 27.7 pg (26.0-34.0); MCHC 31.1 g/dL (31.0-37.0); MEAN PLATELET VOLUME 10.5 fL (7.4-10.4); MONOCYTES 4.7 % (2-11); NEUTROPHIL ABS# 10.02 10x3/uL (1.56-6.13); PLATELET COUNT 131 10x3/uL (130-400); RBC 4.19 10x6/uL (4.00-5.40); RDW 15.5 % (11.5-14.5)
[2021-03-20 06:10] LABS: ALBUMIN 2.6 g/dL (3.4-5.0); BILIRUBIN - TOTAL 0.6 mg/dL (0.2-1.3); CALCIUM 8.7 mg/dL (8.5-10.1); CARBON DIOXIDE 26.1 mmol/L (21.0-32.0); MAGNESIUM - SERUM 2.1 mg/dL (1.8-2.4); PHOSPHOROUS 2.6 mg/dL (2.5-4.9); POTASSIUM - SERUM 4.1 mmol/L (3.5-5.1); PROTEIN - SERUM 5.9 g/dL (6.4-8.2)
[2021-03-20 06:13] LABS: CREATININE - SERUM 1.1 mg/dL (0.6-1.3)
[2021-03-20 06:14] LABS: WBC 11.4 10x3/uL (4.8-10.8)
--- NOTE | 2021-03-20 07:51 | NUR ---
AM MEDS GIVEN AT THIS TIME. PT A/O X4, RESP EVEN AND UNLABORED ON 12L HF. O2 STAYING AROUND 97-98% TURNED O2 TO 10 HF. LT AC INFUSING ANTIBIOTIC. SR-82 ON TELE. SCDS ON BILAT. ALL NEEDS MET, CALL LIGHT IN REACH, WILL CONTINUE PLAN OF CARE.
[2021-03-20 08:07] VITALS: BP 135/57
[2021-03-20 12:06] VITALS: BP 114/58
[2021-03-20 16:55] VITALS: BP 142/57
--- NOTE | 2021-03-20 19:23 | NUR ---
RECEIVED REPORT, WILL ASSUME CARE OF PT, WATCHING TV, DENIES ANY NEEDS AT THIS TIME, BED IS LOW, SRX2, CALL LIGHT IN REACH, WILL CONTINUE PLAN OF CARE
[2021-03-20 20:00] VITALS: BP 139/64
--- NOTE | 2021-03-20 22:07 | NUR ---
CALLED READY TO BE ON BIPAP, RT WAS NOTIFIED
--- NOTE | 2021-03-20 23:49 | NUR ---
I have reviewed this patient and I concur with the Shift Assessment completed by the Licensed Practical Nurse today this shift.
[2021-03-21] VITALS: BP 115/49
[2021-03-21 04:00] VITALS: BP 154/66
[2021-03-21 05:50] LABS: BASOPHILS 0 % (0-2); EOSINOPHILS 0 % (0-7); HEMATOCRIT 33.8 % (36.0-48.0); HEMOGLOBIN 10.6 g/dL (12-16); IMMATURE GRANULOCYTES 0.4 % (0-5); LYMPHOCYTE ABS# 0.42 10x3/uL (1.18-3.74); LYMPHOCYTES 4.7 % (15-50); MCH 27.6 pg (26.0-34.0); MCHC 31.4 g/dL (31.0-37.0); MEAN PLATELET VOLUME 10.7 fL (7.4-10.4); MONOCYTES 3.4 % (2-11); NEUTROPHIL ABS# 8.16 10x3/uL (1.56-6.13); NEUTROPHILS 91.5 % (40-80); PLATELET COUNT 141 10x3/uL (130-400); RBC 3.84 10x6/uL (4.00-5.40); RDW 15.2 % (11.5-14.5); WBC 8.9 10x3/uL (4.8-10.8)
[2021-03-21 06:25] LABS: ALBUMIN 2.5 g/dL (3.4-5.0); BILIRUBIN - TOTAL 0.55 mg/dL (0.2-1.3); CALCIUM 8.7 mg/dL (8.5-10.1); CARBON DIOXIDE 32.2 mmol/L (21.0-32.0); CREATININE - SERUM 0.9 mg/dL (0.6-1.3); MAGNESIUM - SERUM 1.9 mg/dL (1.8-2.4); PHOSPHOROUS 2.5 mg/dL (2.5-4.9); PROTEIN - SERUM 6.1 g/dL (6.4-8.2)
[2021-03-21 06:26] LABS: ANION GAP 9.2 mmol/L (8-16); POTASSIUM - SERUM 3.4 mmol/L (3.5-5.1)
--- NOTE | 2021-03-21 07:15 | NUR ---
PT'S IV BEEPING. WENT TO CHECK ON IV AND IT WAS SHOWING OCCULTED. RESTARTED IV. PT A/O X4, RESP EVEN AND UNLABORED ON 6L HF. PT DENIES ANY NEEDS AT THIS TIME. CALL LIGHT IN REACH, WILL CONTINUE PLAN OF CARE.
--- NOTE | 2021-03-21 08:00 | EC ---
PATIENT:ABHINAV MONSIVAIS DATE OF SERVICE: 03/19/21 SEX: F MEDICAL RECORD: [id number] DATE OF : [birth year] LOCATION:D.M2 D.213 AGE OF PATIENT: 76 ADMISSION DATE: 03/19/21 REFERRING PHYSICIAN: INTERPRETING PHYSICIAN: JOANNA SAHU MD ECHOCARDIOGRAM REPORT ECHO CHARGES 4 ECHO COMPLETE Date: 03/19/21 CLINICAL DIAGNOSIS: ELEVATED TROPONIN ECHOCARDIOGRAPHIC MEASUREMENTS (adult normal given) AC root (d.<3.7cm) 3.0 cm LV Septum d (<1.2 cm> 1.9 cm Valve Excursion 1.9 cm LV Septum (systole) 2.3 cm Left Atria (s.<4.0cm> 4.4 cm LVPW d(<1.2cm) 1.5 cm RV (d.<2.3cm) 2.6 cm LVPW (sytole) 2.0 cm LV diastole(<5.6CM) 5.2 cm MV E-F(>70mm/sec) cm LV systole 2.6 cm LVOT Diameter 1.8 cm MV exc.(>10mm) cm Est.ejection fraction (50-75%) % DOPPLER: LVIT cm/sec A 114 cm/sec E 100 cm/sec LA cm/sec RVSP 19.0 mmHg LVOT 138 cm/sec AOP1/2T m/s Asc. Ao 183 cm/sec RVOT 105 cm/sec RA cm/sec PA 132 cm/sec AV Gradient Peak 13.4 mmHg AV Mean 7.5 mmHg AV Area 2.3 cm MV Gradient Peak 7.9 mmHg MV Mean 3.5 mmHg MV Area cm COMMENTS: Guest Services Assistant: 1 RAFAEL KIRBYOE Roaster Operator: 3 Dr. Vu TAPE# PACS Pericardial Effusion N DATE OF SERVICE: Adequate 2D, color flow imaging, spectral Doppler, and M-Mode. FINDINGS: LVH is present. LV internal dimensions are normal. Wall motion is normal. EF greater than or equal to 55%. Aortic valve is sclerotic. No evidence of stenosis by Doppler interrogation. Left atrium is dilated at 4.4 cm. Mitral valve shows no prolapse. Trace MR. Right side is grossly normal. Mild TR. ECHOCARDIOGRAM REPORT [id number] ABHINAV MONSIVAIS TRANSINT:[id number] Voice Confirmation ID: [id number] DOCUMENT ID: [id number] JOANNA SAHU MD at 0800 CC: [id number] DICTATION DATE: 03/20/21954 BARREL SCRAPER: 03/20/212013 ADM IN [facility] [address] [place] [id number]
--- NOTE | 2021-03-21 08:00 | CN ---
PATIENT NAME:ABHINAV MONSIVAIS MEDICAL RECORD: [id number] : 49 LOCATION:D. D.2138 ADMIT DATE: 03/19/21 ACCOUNT: [id number] CONSULTING PHYSICIAN: JOANNA SAHU MD REFERRING PHYSICIAN: JUANJO JAMESON MD DATE OF CONSULTATION: 03/20/2021 HISTORY OF PRESENT ILLNESS: A 76-year-old female with history of obstructive pulmonary disease on chronic O2 at home, current smoker, admitted with marked increasing dyspnea, shortness of breath, fever, chills, cough, found to have pneumonitis, tachycardia as well, was noted to have elevated cardiac enzymes as well as EKG changes consistent with NSTEMI. We are asked to see her concerning cardiovascular status. PAST MEDICAL HISTORY: Includes; 1. History of obstructive pulmonary disease, O2 dependent. 2. Hypertension. 3. Hyperlipidemia. 4. Hypothyroidism, on replacement. MEDICATIONS: Include Synthroid 25 mcg daily, Lasix 40 mg p.o. daily, [place] 10/325 one q.6 p.r.n., Wellbutrin 150 daily, aspirin 81 daily, Celexa 40 daily, Requip 5 at bedtime, Keppra 500 mg t.i.d., amlodipine 10 daily, pravastatin 10 daily, albuterol 2 puffs q.4 p.r.n. SOCIAL HISTORY: Continues to smoke about a pack a day. Does have set role with her ADLs as well. Nondrinker. ALLERGIES: SILVADENE. REVIEW OF SYSTEMS: The patient reports easy bruising but reports no swollen glands. The patient reports no fever, no night sweats, no significant weight gain, no significant weight loss. No significant exercise tolerance. The patient reports no dry eyes, no irritation, no vision change. Patient reports no difficulty hearing and no ear pain. Patient reports no frequent nose bleeds or nose and sinus problems. Patient reports on arm pain on exertion. No shortness of breath while lying down. No history of heart murmur. Patient reports no cough, no wheezing or coughing up blood. Patient reports no abdominal pain, no vomiting. Normal appetite. No diarrhea and not vomiting blood. No nausea and no constipation. Patient reports no incontinence. No difficulty urinating. No hematuria. No increased frequency. Patient reports no muscle aches. No weakness, no arthralgias, no back pain. No swelling of the extremities. Patient reports no abnormal mole, no jaundice, no rashes. Reports no loss of consciousness. No weakness and no numbness. No seizures, dizziness, or headaches. The patient reports no depression, no sleep disturbance, feeling safe in a relationship and no alcohol abuse. Patient reports on fatigue. Reports no runny nose or sinus pressure. No itching, no hives, and no frequent sneezing. PHYSICAL EXAMINATION: GENERAL: No acute distress, appears stated age. VITAL SIGNS: 135/57, pulse 77 and regular. HEENT: Normocephalic, atraumatic. NECK: No bruits noted. HEART: Regular, II/ systolic ejection murmur. CONSULT REPORT [id number] ABHINAV MONSIVAIS LUNGS: Slight prolonged expiratory phase drift with actually fairly good air movement. ABDOMEN: Soft and nontender. Pulses 2+. EXTREMITIES: No edema. DIAGNOSTIC STUDIES: EKG shows nonspecific ST-T changes inferolaterally. IMPRESSION: Probable type 2 myocardial infarction with elevated enzymes, EKG changes. We will check a nuclear study. Certainly has multiple risk factors for underlying coronary disease. Will need some evaluation at some point to assess any ischemic burden when current episode resolves. Further recommendation based on the above. TRANSINT:[id number] Voice Confirmation ID: [id number] DOCUMENT ID: [id number] JOANNA SAHU MD at 0800 CC: [id number] DICTATION DATE: 03/20/21 0953 ENGRAVER SIGNATURE: 03/20/212017 ADM IN [facility] [address] [place] [address]
[2021-03-21 08:23] VITALS: BP 157/64
--- NOTE | 2021-03-21 10:30 | NUR ---
PT CAN COME OFF ISOLATION PER JEFF BELTRAN INFECTION CONTROL NURSE. INFORMED PT THAT HER COVID RESULT CAME BACK NEGATIVE AND NOW SHE CAN HAVE VISITORS.
[2021-03-21 12:22] VITALS: BP 144/56
[2021-03-21 16:04] VITALS: BP 174/66
--- NOTE | 2021-03-21 17:45 | NUR ---
PT RESTING COMFORTABLY, WATCHING TV. GAVE IMODIUM FOR DIARRHEA, ALL NEEDS MET, CALL LIGHT IN REACH.
[2021-03-21 20:56] VITALS: BP 127/41
--- NOTE | 2021-03-22 00:37 | NUR ---
PT HAS HAD AN UNEVENTFUL SHIFT TO THIS POINT. SHE IS WEARING SCD. PT IS ON HER BIPAP NOW BUT EARLIER WAS ON MAIN FLOW O2 AT 6 L. SHE IS ON TELEMETRY SHOWING SR. SHE IS AWAKE AND ALERT. NO C/O. IS UP WITH ASSIST.
[2021-03-22 01:48] VITALS: BP 140/54
[2021-03-22 05:26] VITALS: BP 150/51
[2021-03-22 07:39] LABS: BASOPHILS 0 % (0-2); EOSINOPHILS 0 % (0-7); HEMATOCRIT 35.3 % (36.0-48.0); HEMOGLOBIN 11.3 g/dL (12-16); IMMATURE GRANULOCYTES 0.3 % (0-5); LYMPHOCYTE ABS# 0.42 10x3/uL (1.18-3.74); LYMPHOCYTES 6.7 % (15-50); MCH 27.8 pg (26.0-34.0); MCV 86.9 fL (80.0-100.0); MEAN PLATELET VOLUME 10.1 fL (7.4-10.4); MONOCYTES 2.1 % (2-11); NEUTROPHILS 90.9 % (40-80); PLATELET COUNT 148 10x3/uL (130-400); RBC 4.06 10x6/uL (4.00-5.40)
[2021-03-22 07:57] LABS: WBC 6.3 10x3/uL (4.8-10.8)
[2021-03-22 08:01] LABS: ALBUMIN 2.7 g/dL (3.4-5.0); BILIRUBIN - TOTAL 0.66 mg/dL (0.2-1.3); CALCIUM 8.7 mg/dL (8.5-10.1); CARBON DIOXIDE 33.4 mmol/L (21.0-32.0); CREATININE - SERUM 0.8 mg/dL (0.6-1.3); MAGNESIUM - SERUM 2.1 mg/dL (1.8-2.4); PHOSPHOROUS 2.9 mg/dL (2.5-4.9); POTASSIUM - SERUM 3.4 mmol/L (3.5-5.1); PROTEIN - SERUM 5.8 g/dL (6.4-8.2)
--- NOTE | 2021-03-22 08:23 | NUR ---
AM MEDS GIVEN AT THIS TIME, RR EVEN NON LABORED O2 IN PLACE. PT AWAKE AND ALERT, ATE A GOOD BREAKFAST. PT STATES SHE WANTS TO TAKE A NAP, FRESH DRINK AT BEDSIDE, LIGHTS TURNED OFF PER REQUEST. CLWR.
[2021-03-22 08:30] VITALS: BP 150/65
[2021-03-22 11:56] VITALS: BP 150/58
--- NOTE | 2021-03-22 16:24 | NUR ---
PT LYING IN BED WITH EYES CLOSED, RR EVEN NON LABORED, O2 IN PLACE VIA NC. PT AWAKENS EASILY, DENIES ANY NEEDS. CLWR.
[2021-03-22 18:05] VITALS: BP 157/55
[2021-03-22 20:00] VITALS: BP 128/45
[2021-03-23] VITALS: BP 135/52
[2021-03-23 05:28] LABS: BASOPHILS 0 % (0-2); EOSINOPHILS 0 % (0-7); HEMOGLOBIN 11.8 g/dL (12-16); IMMATURE GRANULOCYTES 0.5 % (0-5); LYMPHOCYTE ABS# 0.39 10x3/uL (1.18-3.74); MCH 27.8 pg (26.0-34.0); MCHC 31.9 g/dL (31.0-37.0); MCV 87.3 fL (80.0-100.0); MEAN PLATELET VOLUME 10.2 fL (7.4-10.4); NEUTROPHIL ABS# 5.77 10x3/uL (1.56-6.13); NEUTROPHILS 89.5 % (40-80); RBC 4.24 10x6/uL (4.00-5.40); WBC 6.5 10x3/uL (4.8-10.8)
[2021-03-23 05:40] LABS: PLATELET COUNT 190 10x3/uL (130-400)
[2021-03-23 05:51] LABS: ALBUMIN 2.8 g/dL (3.4-5.0); ANION GAP 8.2 mmol/L (8-16); BILIRUBIN - TOTAL 0.54 mg/dL (0.2-1.3); CALCIUM 8.9 mg/dL (8.5-10.1); PHOSPHOROUS 3.3 mg/dL (2.5-4.9); POTASSIUM - SERUM 3.2 mmol/L (3.5-5.1); PROTEIN - SERUM 6.5 g/dL (6.4-8.2)
--- NOTE | 2021-03-23 08:16 | NUR ---
AM MEDS GIVEN AT THIS TIME, PT SITTING UP IN BED EATING BREAKFAST. PT AWAKE AND ALERT, O2 IN PLACE, RR EVEN NON LABORED. PT ROOM AND BSC ARRANGED PER REQUST. NO FURTHER NEEDS VOICED. CLWR.
--- NOTE | 2021-03-23 10:38 | NUR ---
PT SITTING UP IN BED , RR EVEN NON LABORED WITH O2 IN PLACE. PT VISITING WITH FAMILY MEMBER AT BEDSIDE. NO NEEDS VOICED. CLWR.
[2021-03-23 12:54] VITALS: BP 156/45
--- NOTE | 2021-03-23 12:56 | NUR ---
PT TAKEN OFF BIPAP AT THIS TIME PER REQUEST TO EAT LUNCH. PT WORE FOR 2 HOURS WHILE NAPPING. PT REPOSITIONED AND PULLED UP IN BED. FRESH ICE GIVEN. NO FURTHER NEEDS VOICED, CLWR.
[2021-03-23 18:01] VITALS: BP 135/54
--- NOTE | 2021-03-23 21:07 | MORECARE ---
CASE MANAGEMENT DISCHARGE SUMMARY PATIENT: ABHINAV MONSIVAIS UNIT: [id number] ADM DATE: 03/19/21 AGE: 76 : 47 SEX: F [facility] AUTHOR: CINDY,DOC PHYSICIAN: REFERRING PHYSICIAN: JUANJO JAMESON MD DATE OF SERVICE: 03/23/21 Case Management Discharge Planning Summary DCP REVIEW SUMMARY ANTICIPATED D/C DATE: EXPECTED LOS : CASE STATUS: DCP Initiated INITIAL REVIEW: 03/19/2021 INITIAL REVIEWER: Irma Rosen FINAL DISCHARGE DISPOSITION: : FINAL REVIEWER: FINAL REVIEW DATE: DCP Focus Questions & Answers QUESTION: ANSWER : PATIENT: ABHINAV MONSIVAIS ENCOUNTER: [id number] MEDICAL RECORD#: [id number] ADMISSION DATE: 03/19/2021 DISCHARGE DATE: ATTENDING MD: JUANJO PARHAM : AGE: 76 MARITAL STATUS: M DC PLAN ID: [id number] FACILITY: [facility] PRINTED ON: 03/23/21 21:07 CT All edits/amendments must be made on the electronic document DICTATION DATE: 03/23/212105 BRICK BURNER HEAD: DM 03/23/212105 RPT#: [id number] DC DATE: STATUS: ADM IN [facility] [address] [place] [address] END OF REPORT
--- NOTE | 2021-03-23 21:17 | MORECARE ---
CASE MANAGEMENT DISCHARGE SUMMARY PATIENT: ABHINAV MONSIVAIS UNIT: [id number] ADM DATE: 03/19/21 AGE: 76 : 47 SEX: F ROOM/BED: D.7326 AUTHOR: RA WHITE PHYSICIAN: REFERRING PHYSICIAN: JUANJO JAMESON MD DATE OF SERVICE: 03/23/21 Case Management Discharge Planning Summary DCP REVIEW SUMMARY ANTICIPATED D/C DATE: EXPECTED LOS : CASE STATUS: DCP Initiated INITIAL REVIEW: 03/19/2021 INITIAL REVIEWER: Irma Rosen FINAL DISCHARGE DISPOSITION: : FINAL REVIEWER: FINAL REVIEW DATE: DCP Focus Questions & Answers DCP Evaluation QUESTION: ANSWER Patient gives permission to discuss discharge plans with: (name, relationship and number) : DARREL MONSIVAIS -SP- [phone] Patient's ability to cope with chronic illness : d. No chronic illness Patient's current cognitive status: : *Oriented to person, place, situation, time and present Family / Caregiver's ability to cope with chronic illness: : a. Adequate (ability to meet patient's medical needs, ensures patient attends medical appts.) Patient and/or caregiver agree upon recommended discharge plan? : Yes Physical Status: : Mobility impaired Family / Caregiver's ability to cope with chronic illness: : a. Adequate (ability to meet patient's medical needs, ensures patient attends medical appts.) Functional screen assessment: : Unable to manage ADLs without immediate ongoing assistance Partial Dependence, assistance required for: : Ambulation / Mobility Living Arrangements: : Home with Spouse/Significant Other Equipment needed for post hospitalization: : Ventilator (home) Baseline cognitive status: : *Oriented to person, place, situation, time and present Patient with capacity for self-care or can be cared for in same environment as prior to hospitalization? : Yes Medication Management: : Patient states can afford medications Pharmacy name(s): : [facility] Does Patient have transportation to get home and to follow-up medical appointments when discharged from the hospital? : Yes Would patient like to participate in any Care Coordination programs (if applicable): : Not applicable Does the patient have electricity at home? : Yes Does the patient have running water in their house? : No Equipment in use: : Bedside Commode Equipment in use: : Cane - Single Leg Equipment in use: : Home Oxygen with Nasal Cannula Equipment in use: : Nebulizer Equipment in use: : Shower Chair Equipment in use: : Walker - Rolling Equipment in use: : Wheelchair Other Equipment comments: : RECLINER Equipment agency name and contact information: : [facility] Mental health screen: : No mental health history Psychosocial status: : Independent adult (65+) Abuse/Neglect: : None Resources / Services in place: : DME DCP Re-evaluation QUESTION: ANSWER Would patient like to participate in any Care Coordination programs (if applicable): : Not applicable PATIENT: ABHINAV MONSIVAIS ENCOUNTER: [id number] MEDICAL RECORD#: [id number] ADMISSION DATE: 03/19/2021 DISCHARGE DATE: ATTENDING MD: JUANJO PARHAM : AGE: 76 MARITAL STATUS: M DC PLAN ID: [id number] FACILITY: [facility] PRINTED ON: 03/23/21 21:17 CT All edits/amendments must be made on the electronic document DICTATION DATE: 03/23/212116 FIELD APPRAISER: JORDAN 03/23/212116 RPT#: [id number] DC DATE: STATUS: ADM IN [facility] [address] [place] [address] END OF REPORT
--- NOTE | 2021-03-23 21:28 | MORECARE ---
CASE MANAGEMENT DISCHARGE SUMMARY PATIENT: ABHINAV MONSIVAIS UNIT: [id number] ADM DATE: 03/19/21 AGE: 76 : 47 SEX: F ROOM/BED: D.2130 AUTHOR: RA WHITE PHYSICIAN: REFERRING PHYSICIAN: JUANJO JAMESON MD DATE OF SERVICE: 03/23/21 Case Management Discharge Planning Summary COMMENTS ENTERED DATE: 03/23/21 21:26 CT COMMENT TYPE: Discharge Planning REVIEWER: Irma Rosen CM faxed order for Trilogy to [facility] and notified Jordan. ENTERED DATE: 03/23/21 21:07 CT COMMENT TYPE: Discharge Planning REVIEWER: Irma Rosen CM spoke with patient to complete initial dc planning assessment. Patient states that Dr. Collins is her Pcp. and [facility] on [address] is pharmacy. CM educated patient on the CM role and verbal consent given by patient to complete assessment. Patient lives at home with spouse Patient is partially independent. Patient states that she mostly just moves from recliner to [facility] and back. At discharge patient plans to return home and feels this is a safe discharge. CM discussed availability of home health, rehab services, and medical equipment. Patient states she has home 02 with nebulizer per [facility]. MARCO signed Patient doesn't feel like she needs HHS on discharge. She states she has family that lives close besides her . Patient will have family to transport home. Patient denied known discharge needs at this time. CM will continue to follow and will assist as needed with dc plans/needs. D/C IMM signed DCP REVIEW SUMMARY ANTICIPATED D/C DATE: EXPECTED LOS : CASE STATUS: DCP Initiated INITIAL REVIEW: 03/19/2021 INITIAL REVIEWER: Irma Rosen FINAL DISCHARGE DISPOSITION: : FINAL REVIEWER: FINAL REVIEW DATE: DCP Focus Questions & Answers DCP Evaluation QUESTION: ANSWER Patient gives permission to discuss discharge plans with: (name, relationship and number) : DARREL MONSIVAIS -SP- [phone] Patient's ability to cope with chronic illness : d. No chronic illness Patient's current cognitive status: : *Oriented to person, place, situation, time and present Family / Caregiver's ability to cope with chronic illness: : a. Adequate (ability to meet patient's medical needs, ensures patient attends medical appts.) Patient and/or caregiver agree upon recommended discharge plan? : Yes Physical Status: : Mobility impaired Family / Caregiver's ability to cope with chronic illness: : a. Adequate (ability to meet patient's medical needs, ensures patient attends medical appts.) Functional screen assessment: : Unable to manage ADLs without immediate ongoing assistance Partial Dependence, assistance required for: : Ambulation / Mobility Living Arrangements: : Home with Spouse/Significant Other Equipment needed for post hospitalization: : Ventilator (home) Baseline cognitive status: : *Oriented to person, place, situation, time and present Patient with capacity for self-care or can be cared for in same environment as prior to hospitalization? : Yes Medication Management: : Patient states can afford medications Pharmacy name(s): : [facility] Does Patient have transportation to get home and to follow-up medical appointments when discharged from the hospital? : Yes Would patient like to participate in any Care Coordination programs (if applicable): : Not applicable Does the patient have electricity at home? : Yes Does the patient have running water in their house? : No Equipment in use: : Bedside Commode Equipment in use: : Cane - Single Leg Equipment in use: : Home Oxygen with Nasal Cannula Equipment in use: : Nebulizer Equipment in use: : Shower Chair Equipment in use: : Walker - Rolling Equipment in use: : Wheelchair Other Equipment comments: : RECLINER Equipment agency name and contact information: : [facility] screen: : No mental health history Psychosocial status: : Independent adult (65+) Abuse/Neglect: : None [facility] Re-evaluation QUESTION: ANSWER Would patient like to participate in any Care Coordination programs (if applicable): : Not applicable PATIENT: ABHINAV MONSIVAIS ENCOUNTER: [id number] MEDICAL RECORD#: [id number] ADMISSION DATE: 03/19/2021 DISCHARGE DATE: ATTENDING MD: JUANJO PARHAM : AGE: 76 MARITAL STATUS: M DC PLAN ID: [id number] FACILITY: [facility] PRINTED ON: 03/23/21 21:28 CT All edits/amendments must be made on the electronic document DICTATION DATE: 03/23/212126 DESIGN PRINTING MACHINE SET UP OPERATOR: JORDAN 03/23/212126 [facility]#: [id number] DC DATE: STATUS: ADM IN [facility] [address] [place] [address] END OF REPORT
[2021-03-23 23:28] VITALS: BP 155/56
[2021-03-24] VITALS: BP 133/89
--- NOTE | 2021-03-24 03:11 | NUR ---
RESTING QUIETLY TONIGHT WILL ASK TO BE PLACED ON/OFF BIPAP. WANTS TO GO HOME TOMORROW IF SHE GETS HER HOME TRILOGY.
[2021-03-24 04:00] VITALS: BP 152/61
[2021-03-24 07:40] LABS: BASOPHILS 0.2 % (0-2); EOSINOPHILS 0 % (0-7); HEMATOCRIT 39.2 % (36.0-48.0); HEMOGLOBIN 12.4 g/dL (12-16); IMMATURE GRANULOCYTES 2.1 % (0-5); LYMPHOCYTE ABS# 0.53 10x3/uL (1.18-3.74); LYMPHOCYTES 8.5 % (15-50); MCH 27.6 pg (26.0-34.0); MCHC 31.6 g/dL (31.0-37.0); MCV 87.1 fL (80.0-100.0); MEAN PLATELET VOLUME 10.3 fL (7.4-10.4); MONOCYTES 4.3 % (2-11); NEUTROPHILS 84.9 % (40-80); PLATELET COUNT 188 10x3/uL (130-400); RDW 14.7 % (11.5-14.5); WBC 6.2 10x3/uL (4.8-10.8)
[2021-03-24 07:58] LABS: ALBUMIN 2.9 g/dL (3.4-5.0); ANION GAP 8.2 mmol/L (8-16); BILIRUBIN - TOTAL 0.49 mg/dL (0.2-1.3); CALCIUM 8.4 mg/dL (8.5-10.1); CARBON DIOXIDE 33.7 mmol/L (21.0-32.0); MAGNESIUM - SERUM 2.1 mg/dL (1.8-2.4); PHOSPHOROUS 3.5 mg/dL (2.5-4.9); POTASSIUM - SERUM 3.9 mmol/L (3.5-5.1); PROTEIN - SERUM 5.9 g/dL (6.4-8.2)
[2021-03-24 08:22] VITALS: BP 143/54
--- NOTE | 2021-03-24 08:44 | NUR ---
AM MEDS GIVEN AT THIS TIME. PT AROUSES EASILY, AWAKE AND ALERT. PT TALKS ABOUT WANTING TO GO HOME. DR JAMESON SPOKE WITH PT THIS AM ALSO. PT DENIES ANY FURTHER NEEDS, RR EVEN NON LABORED. O2 IN PLACE. COUGH NOTED. CLWR.
[2021-03-24 12:30] VITALS: Ht 160 cm; Wt 94.3 kg
--- NOTE | 2021-03-24 12:48 | MORECARE ---
CASE MANAGEMENT DISCHARGE SUMMARY PATIENT: ABHINAV MONSIVAIS UNIT: [id number] ADM DATE: 03/19/21 AGE: 76 : 47 SEX: F ROOM/BED: D.3820 AUTHOR: CINDY,DOC PHYSICIAN: REFERRING PHYSICIAN: JUANJO JAMESON MD DATE OF SERVICE: 03/24/21 Case Management Discharge Planning Summary COMMENTS ENTERED DATE: 03/24/21 12:40 CT COMMENT TYPE: Discharge Planning REVIEWER: Audra Samayoa CM spoke with Jordan with [facility]. Jordan states her insurance requires PFT and ABG prior to sending for approval for a Trilogy. Jordan states she is trying to see if she has had them before and has called medical records and Dr. Collins's office. I have faxed ABG's. Awaiting on return call from [facility]. ENTERED DATE: 03/23/21 21:26 CT COMMENT TYPE: Discharge Planning REVIEWER: Irma Rosen CM faxed order for Trilogy to [facility] and notified Jordan. ENTERED DATE: 03/23/21 21:07 CT COMMENT TYPE: Discharge Planning REVIEWER: Irma Rosen CM spoke with patient to complete initial dc planning assessment. Patient states that Dr. Collins is her Pcp. and [facility] on [address] is pharmacy. CM educated patient on the CM role and verbal consent given by patient to complete assessment. Patient lives at home with spouse Patient is partially independent. Patient states that she mostly just moves [place] recl[place] [facility] [place] back. At discharge patient plans to return home and feels this is a safe discharge. CM discussed availability of home health, rehab services, and medical equipment. Patient states she has home 02 with nebulizer per [facility]. MARCO signed Patient doesn't feel like she needs HHS on discharge. She states she has family that lives close besides her . Patient will have family to transport home. Patient denied known discharge needs at this time. CM will continue to follow and will assist as needed with dc plans/needs. D/C IMM signed DCP REVIEW SUMMARY ANTICIPATED D/C DATE: EXPECTED LOS : CASE STATUS: DCP Initiated INITIAL REVIEW: 03/19/2021 INITIAL REVIEWER: Irma Rosen FINAL DISCHARGE DISPOSITION: : FINAL REVIEWER: FINAL REVIEW DATE: DCP Focus Questions & Answers DCP Evaluation QUESTION: ANSWER Patient and/or caregiver agree upon recommended discharge plan? : Yes Family / Caregiver's ability to cope with chronic illness: : a. Adequate (ability to meet patient's medical needs, ensures patient attends medical appts.) Patient's current cognitive status: : *Oriented to person, place, situation, time and present Patient's ability to cope with chronic illness : d. No chronic illness Patient gives permission to discuss discharge plans with: (name, relationship and number) : DARREL MONSIVAIS SP- [phone] Functional screen assessment: : Unable to manage ADLs without immediate ongoing assistance Family / Caregiver's ability to cope with chronic illness: : a. Adequate (ability to meet patient's medical needs, ensures patient attends medical appts.) Physical Status: : Mobility impaired Equipment needed for post hospitalization: : Ventilator (home) Living Arrangements: : Home with Spouse/Significant Other Partial Dependence, assistance required for: : Ambulation / Mobility Patient with capacity for self-care or can be cared for in same environment as prior to hospitalization? : Yes Baseline cognitive status: : *Oriented to person, place, situation, time and present Medication Management: : Patient states can afford medications Pharmacy name(s): : [facility] Does Patient have transportation to get home and to follow-up medical appointments when discharged from the hospital? : Yes Would patient like to participate in any Care Coordination programs (if applicable): : Not applicable Does the patient have electricity at home? : Yes Does the patient have running water in their house? : No Equipment in use: : Wheelchair Equipment in use: : Walker - Rolling Equipment in use: : Shower Chair Equipment in use: : Nebulizer Equipment in use: : Home Oxygen with Nasal Cannula Equipment in use: : Cane - Single Leg Equipment in use: : Bedside Commode Other Equipment comments: : RECLINER Equipment agency name and contact information: : [facility] Mental health screen: : No mental health history Psychosocial status: : Independent adult (65+) Abuse/Neglect: : None Resources / Services in place: : DME DCP Re-evaluation QUESTION: ANSWER Would patient like to participate in any Care Coordination programs (if applicable): : Not applicable PATIENT: ABHINAV MONSIVAIS ENCOUNTER: [id number] MEDICAL RECORD#: [id number] ADMISSION DATE: 03/19/2021 DISCHARGE DATE: ATTENDING MD: JUANJO PARHAM : AGE: 76 MARITAL STATUS: M DC PLAN ID: [id number] FACILITY: [facility] PRINTED ON: 03/24/21 12:48 CT All edits/amendments must be made on the electronic document DICTATION DATE: 03/24/211247 LIMB DRIVER: JORDAN 03/24/211247 RPT#: [id number] DC DATE: STATUS: ADM IN [facility] [address] [place] [address] END OF REPORT
[2021-03-24 13:26] VITALS: BP 117/54
--- NOTE | 2021-03-24 15:40 | NUR ---
ASSISTED PT WITH SHOWER AT THIS TIME. PT DID ACTIVITY WELL AND MOSTLY INDEPENDENT. NEW LINENS PLACED ON BED.
[2021-03-24 16:49] VITALS: BP 110/52
[2021-03-24 21:57] VITALS: BP 127/49
--- NOTE | 2021-03-25 01:52 | NUR ---
03/24/212014 RESTING IN BED. DENIES ANY NEEDS PLEASANT & COOPERATIVE
--- NOTE | 2021-03-25 05:59 | NUR ---
STARTED IVPB OF AZITHROMYCIN TO RIGHT FOREARM IV. PT THEN BEGAN C/O SEVERE PAIN/BURNING TO AREA, LOCALIZED REDNESS AROUND INSERTION SITE. ICE PACK & ELEVATED. ATTEMPTED TO RESTART IV. PT REQUESTED TO NOT HAVE IT RESTARTED IF AT ALL POSSIBLE.
[2021-03-25 06:04] VITALS: BP 146/53
--- NOTE | 2021-03-25 07:05 | NUR ---
PT LYING IN BED. RESP EVEN AND UNLABORED. O2 VIA NC AT [address] AAO X4[address] DENIES NEEDS AT THIS TIME. CLIR. BED IN LOWEST POSITION. SIDE RAILS X2
[2021-03-25 08:00] VITALS: BP 153/58
[2021-03-25 08:30] LABS: BASOPHILS 0 % (0-2); EOSINOPHILS 0 % (0-7); HEMATOCRIT 39.4 % (36.0-48.0); HEMOGLOBIN 12.7 g/dL (12-16); LYMPHOCYTE ABS# 0.55 10x3/uL (1.18-3.74); LYMPHOCYTES 6.9 % (15-50); MCH 27.7 pg (26.0-34.0); MCHC 32.2 g/dL (31.0-37.0); MEAN PLATELET VOLUME 10.6 fL (7.4-10.4); MONOCYTES 3.5 % (2-11); NEUTROPHIL ABS# 6.93 10x3/uL (1.56-6.13); NEUTROPHILS 86.6 % (40-80); PLATELET COUNT 209 10x3/uL (130-400); RBC 4.58 10x6/uL (4.00-5.40); RDW 14.6 % (11.5-14.5)
[2021-03-25 08:44] LABS: ALBUMIN 2.9 g/dL (3.4-5.0); ANION GAP 10.1 mmol/L (8-16); BILIRUBIN - TOTAL 0.63 mg/dL (0.2-1.3); CALCIUM 8.4 mg/dL (8.5-10.1); CARBON DIOXIDE 34.1 mmol/L (21.0-32.0); PROTEIN - SERUM 6.1 g/dL (6.4-8.2)
[2021-03-25 08:45] LABS: POTASSIUM - SERUM 3.2 mmol/L (3.5-5.1)
--- NOTE | 2021-03-25 16:33 | NUR ---
I have reviewed this patient and I concur with the Shift Assessment completed by the Licensed Practical Nurse today this shift.
--- NOTE | 2021-03-25 20:09 | NUR ---
RESTING IN BED WATCHING TV. PLEASANT & CONVERSANT. HOME TRILOGY AT BEDSIDE & WILL USE TONIGHT WITH POSSIBLE DISCHARGE IN MORNING NO IV ACCESS & MEDS CHANGED TO PO
[2021-03-25 22:19] VITALS: BP 140/52
[2021-03-26 00:46] VITALS: BP 137/69
--- NOTE | 2021-03-26 07:00 | NUR ---
RECEIVED REPORT. ASSUMED CARE OF PATIENT. CALL LIGHT WITHIN REACH. DID NOT TOLERATE TRILOGY WELL LAST NIGHT DUE TO MASK FITTING. WHITE BOARD UPDATED, BEDSIDE SHIFT REPORT COMPLETE. NO DISTRESS.
[2021-03-26 07:16] LABS: BASOPHILS 0.1 % (0-2); EOSINOPHILS 0 % (0-7); HEMATOCRIT 39.9 % (36.0-48.0); HEMOGLOBIN 12.8 g/dL (12-16); IMMATURE GRANULOCYTES 2.9 % (0-5); LYMPHOCYTE ABS# 1.18 10x3/uL (1.18-3.74); MCH 27.9 pg (26.0-34.0); MCHC 32.1 g/dL (31.0-37.0); MCV 87.1 fL (80.0-100.0); MEAN PLATELET VOLUME 10.5 fL (7.4-10.4); MONOCYTES 6.9 % (2-11); NEUTROPHIL ABS# 5.45 10x3/uL (1.56-6.13); NEUTROPHILS 74.1 % (40-80); PLATELET COUNT 216 10x3/uL (130-400); RBC 4.58 10x6/uL (4.00-5.40); RDW 14.8 % (11.5-14.5); WBC 7.4 10x3/uL (4.8-10.8)
[2021-03-26 07:46] LABS: ALBUMIN 2.8 g/dL (3.4-5.0); ANION GAP 7.1 mmol/L (8-16); BILIRUBIN - TOTAL 0.55 mg/dL (0.2-1.3); CALCIUM 8.5 mg/dL (8.5-10.1); CARBON DIOXIDE 36.1 mmol/L (21.0-32.0); CREATININE - SERUM 1.1 mg/dL (0.6-1.3); POTASSIUM - SERUM 3.2 mmol/L (3.5-5.1); PROTEIN - SERUM 5.8 g/dL (6.4-8.2)
[2021-03-26 08:26] VITALS: BP 113/56
[2021-03-26] MEDS ORDERED: NEURONTIN 300300 MG PO (08:59)
--- NOTE | 2021-03-26 09:40 | NUR ---
EP INITIATED FOR K+3.2 AT THIS TIME. PATIENT TOLERATED ORAL K+ SUPPLEMENT WELL.
[2021-03-26 12:00] VITALS: BP 110/43
[2021-03-26] MEDS ORDERED: OMNICEF300 MG PO (13:35)
[2021-03-26] MEDS ORDERED: ZITHROMAX250 MG PO (13:35)
[2021-03-26] MEDS ORDERED: NICODERM CQ1 EAC2 TRANSDERM (13:36)
[2021-03-26] MEDS ORDERED: IPRAT-ALBUT 0.5-3 ML UPD (13:36)
[2021-03-26] MEDS ORDERED: PERFOROMIS20 MCG/21 INH (13:36)
[2021-03-26] MEDS ORDERED: PULMICORT0.5 MG/21 UPD (13:37)
[2021-03-26] MEDS ORDERED: TESSALON PERLE100 MG PO (13:37)
[2021-03-26] MEDS ORDERED: FLORAJEN DIGES1 EACH PO (13:38)
[2021-03-26] MEDS ORDERED: MUCINEX DM ER1 EAC1 PO (13:38)
[2021-03-26] MEDS ORDERED: SINGULAIR10 MG PO (13:38)
[2021-03-26] MEDS ORDERED: DALIRESP250 MCG PO (13:38)
[2021-03-26] MEDS ORDERED: PREDNISONE10 MG PO (13:39)
--- NOTE | 2021-03-26 14:22 | NUR ---
NO IV TO D/C. DISCHARGE INSTRUCTIONS PROVIDED TO PATIENT. PATEINT VERBALIZED UNDERSTANDING OF ALL INSTRUCTIONS PROVIDED. PATIENT IS BEING DISCHARGED TO HOME WITH HER . AWAITING HER SPOUSES ARRIVAL.
--- NOTE | 2021-03-26 15:26 | NUR ---
PATIENTS SPOUSE HAS ARRIVED TO PICK HER UP. SPOUSE IS TAKING ITEMS TO PERSONAL CAR AT THIS TIME.
--- NOTE | 2021-03-26 15:54 | NUR ---
PATIENT DISCHARGED TO HOME WITH ALL PERSONAL BELONGINGS. PATIENT IN NO DISTRESS UPON LEAVING UNIT. PATIENT DISCHARGED TO HOME WITH HER SPOUSE BY PRIVATE CAR.
--- NOTE | 2021-03-26 18:13 | MORECARE ---
CASE MANAGEMENT DISCHARGE SUMMARY PATIENT: ABHINAV MONSIVAIS UNIT: [id number] ADM DATE: 03/19/21 AGE: 76 : 49 SEX: F ROOM/BED: D.3700 AUTHOR: CINDY,DOC PHYSICIAN: REFERRING PHYSICIAN: JUANJO JAMESON MD DATE OF SERVICE: 03/26/21 Case Management Discharge Planning Summary COMMENTS ENTERED DATE: 03/24/21 12:40 CT COMMENT TYPE: Discharge Planning REVIEWER: Audra Samayoa CM spoke with Jordan with [facility]. Jordan states her insurance requires PFT and ABG prior to sending for approval for a Trilogy. Jordan states she is trying to see if she has had them before and has called medical records and Dr. Collins's office. I have faxed ABG's. Awaiting on return call from [facility]. ENTERED DATE: 03/23/21 21:26 CT COMMENT TYPE: Discharge Planning REVIEWER: Irma Rosen CM faxed order for Trilogy to [facility] and notified Jordan. ENTERED DATE: 03/23/21 21:07 CT COMMENT TYPE: Discharge Planning REVIEWER: Irma Rosen CM spoke with patient to complete initial dc planning assessment. Patient states that Dr. Collins is her Pcp. and [facility] on [address] is pharmacy. CM educated patient on the CM role and verbal consent given by patient to complete assessment. Patient lives at home with spouse Patient is partially independent. Patient states that she mostly just moves from recliner to [facility] and back. At discharge patient plans to return home and feels this is a safe discharge. CM discussed availability of home health, rehab services, and medical equipment. Patient states she has home 02 with nebulizer per [facility]. MARCO signed Patient doesn't feel like she needs HHS on discharge. She states she has family that lives close besides her . Patient will have family to transport home. Patient denied known discharge needs at this time. CM will continue to follow and will assist as needed with dc plans/needs. D/C IMM signed DCP REVIEW SUMMARY ANTICIPATED D/C DATE: EXPECTED LOS : CASE STATUS: DCP Initiated INITIAL REVIEW: 03/19/2021 INITIAL REVIEWER: Irma Rosen FINAL DISCHARGE DISPOSITION: 01 : Home or Self Care (Routine Discharge) FINAL REVIEWER: Irma Rosen FINAL REVIEW DATE: 03/26/2021 GAP Focus Questions & Answers GAP Evaluation QUESTION: ANSWER Patient gives permission to discuss discharge plans with: (name, relationship and number) : DARREL MONSIVAIS -SP- [phone] Patient's ability to cope with chronic illness : d. No chronic illness Patient's current cognitive status: : *Oriented to person, place, situation, time and present Family / Caregiver's ability to cope with chronic illness: : a. Adequate (ability to meet patient's medical needs, ensures patient attends medical appts.) Patient and/or caregiver agree upon recommended discharge plan? : Yes Physical Status: : Mobility impaired Family / Caregiver's ability to cope with chronic illness: : a. Adequate (ability to meet patient's medical needs, ensures patient attends medical appts.) Functional screen assessment: : Unable to manage ADLs without immediate ongoing assistance Partial Dependence, assistance required for: : Ambulation / Mobility Living Arrangements: : Home with Spouse/Significant Other Equipment needed for post hospitalization: : Ventilator (home) Baseline cognitive status: : *Oriented to person, place, situation, time and present Patient with capacity for self-care or can be cared for in same environment as prior to hospitalization? : Yes Medication Management: : Patient states can afford medications [facility] Does Patient have transportation to get home and to follow-up medical appointments when discharged from the hospital? : Yes Would patient like to participate in any Care Coordination programs (if applicable): : Not applicable Does the patient have electricity at home? : Yes Does the patient have running water in their house? : No Equipment in use: : Bedside Commode Equipment in use: : Cane - Single Leg Equipment in use: : Home Oxygen with Nasal Cannula Equipment in use: : Nebulizer Equipment in use: : Shower Chair Equipment in use: : Walker - Rolling Equipment in use: : Wheelchair Other Equipment comments: : RECLINER Equipment agency name and contact information: : [facility] Mental health screen: : No mental health history Psychosocial status: : Independent adult (65+) Abuse/Neglect: : None Resources / Services in place: : DME DCP Re-evaluation QUESTION: ANSWER Would patient like to participate in any Care Coordination programs (if applicable): : Not applicable PATIENT: ABHINAV MONSIVAIS ENCOUNTER: [id number] MEDICAL RECORD#: [id number] ADMISSION DATE: 03/19/2021 DISCHARGE DATE: 03/26/2021 ATTENDING MD: JUANJO PARHAM : AGE: 76 MARITAL STATUS: M DC PLAN ID: [id number] FACILITY: PRINTED ON: 03/26/21 18:13 CT All edits/amendments must be made on the electronic document DICTATION DATE: 03/26/211812 BORING AND FILLING MACHINE OPERATOR: JORDAN 03/26/211812 RPT#: [id number] DC DATE:03/26/21 STATUS: DIS IN [address] [place] [address] END OF REPORT
== END 2021-03-26 15:55 | disposition home or self-care (01) | DRG 193 ==
LOC: D.ER 07:10 → D.M2 08:04
PROVIDERS: Family Medicine; ADMIT Emergency Medicine; ATTEND Emergency Medicine
DX: J18.9 Pneumonia, unspecified organism (principal); J96.02 Acute respiratory failure with hypercapnia; J96.21 Acute and chronic respiratory failure with hypoxia; I21.A1 Myocardial infarction type 2; J44.1 Chronic obstructive pulmonary disease with (acute) exacerbation; J44.0 Chronic obstructive pulmonary disease with (acute) lower respiratory infection; I10 Essential (primary) hypertension; F17.200 Nicotine dependence, unspecified, uncomplicated; E78.5 Hyperlipidemia, unspecified; K21.9 Gastro-esophageal reflux disease without esophagitis; D64.9 Anemia, unspecified; E03.9 Hypothyroidism, unspecified

== ENCOUNTER 2021-04-27 15:37 | Emergency (ER) | payer MEDICARE, MEDICAID ==
[~2021-04-27] VITALS: Ht 160 cm; Wt 92.7 kg
[~2021-04-27 15:37] MED LIST changes: +DALIRESP250 MCG PO; +FLORAJEN DIGES1 EACH PO; +IPRAT-ALBUT 0.5-3 ML UPD; +MUCINEX DM ER1 EAC1 PO; +NEURONTIN 300300 MG PO; +NICODERM CQ1 EAC2 TRANSDERM; +PERFOROMIS20 MCG/21 INH; +PULMICORT0.5 MG/21 UPD; +SINGULAIR10 MG PO; +TESSALON PERLE100 MG PO
[2021-04-27 15:45] VITALS: Ht 160 cm; Wt 92.7 kg
[2021-04-27 16:51] LABS: BASOPHILS 0.3 % (0-2); EOSINOPHILS 0 % (0-7); HEMATOCRIT 35.9 % (36.0-48.0); HEMOGLOBIN 11.7 g/dL (12-16); LYMPHOCYTES 12.6 % (15-50); MCHC 32.6 g/dL (31.0-37.0); MCV 86.1 fL (80.0-100.0); MEAN PLATELET VOLUME 7.5 fL (7.4-10.4); MONOCYTES 4.6 % (2-11); NEUTROPHILS 82.5 % (40-80); PLATELET COUNT 218 10x3/uL (130-400); RBC 4.17 10x6/uL (4.00-5.40); RDW 17.1 % (11.5-14.5); WBC 7.3 10x3/uL (4.8-10.8)
[2021-04-27 16:59] LABS: ANION GAP 14.4 mmol/L (8-16); CALCIUM 8.6 mg/dL (8.5-10.1); CARBON DIOXIDE 29.3 mmol/L (21.0-32.0); CREATININE - SERUM 1.3 mg/dL (0.6-1.3); POTASSIUM - SERUM 4.7 mmol/L (3.5-5.1)
[2021-04-27 17:00] LABS: APTT 30.6 SECONDS (22.8-39.4); INR 1.15 (0.85-1.17); PROTIME 13.6 SECONDS (11.6-15.0)
[2021-04-27 17:05] LABS: ALBUMIN 3.1 g/dL (3.4-5.0); BILIRUBIN - TOTAL 0.44 mg/dL (0.2-1.3); PROTEIN - SERUM 6.6 g/dL (6.4-8.2)
[2021-04-27] MEDS ORDERED: CEPHALEXIN500 M1 PO (19:18)
[2021-04-27] MEDS ORDERED: HYDROCODON-ACE1 EAC7 PO (19:18)
[2021-04-27 19:42] VITALS: BP 110/61
== END 2021-04-27 19:42 | disposition home or self-care (01) ==
LOC: D.ER 15:37
PROVIDERS: Family Medicine
DX: S81.011A Laceration without foreign body, right knee, initial encounter (principal); S80.01XA Contusion of right knee, initial encounter; J44.9 Chronic obstructive pulmonary disease, unspecified; K21.9 Gastro-esophageal reflux disease without esophagitis; Z72.0 Tobacco use; W19.XXXA Unspecified fall, initial encounter; Y93.9 Activity, unspecified; Y92.9 Unspecified place or not applicable